=== PATIENT | male | born 1955 | race Caucasian/White ===

== ENCOUNTER 2019-03-09 21:28 | Observation (INO) ==
[2019-03-09] MEDS ORDERED: SODIUM CHLORIDE 0.9% 1000ML 1,000 ML IV ONE (22:23)
[2019-03-09 22:28] LABS: Basophils # (auto) 0.01 K/uL (0-0.2); Basophils % (auto) 0.2 %; Eosinophils # (auto) 0.13 K/uL (0-0.5); Eosinophils % (auto) 2.7 %; Hematocrit (blood only) 41.8 % (42-52); Hemoglobin 14.7 g/dL (14.0-18.0); Lymphocytes # (auto) 1.15 K/uL (1.2-3.4); Lymphocytes % (auto) 23.7 %; Mean Corpuscular Hgb Conc 35.2 g/dL (32-36); Mean Corpuscular Volume 88.2 fL (80-100); Mean Platelet Volume 10.4 fL (7.4-10.4); Monocytes # (auto) 0.83 K/uL (0.11-0.59); Monocytes % (auto) 17.1 %; Neutrophils # (auto) 2.74 K/uL (1.4-6.5); Neutrophils % (auto) 56.3 %; Platelet Count 147 K/uL (130-400); RDW Coefficient of Variation 13.1 % (11.5-14.5); RDW Standard Deviation 42.3 fL (36.4-46.3); Red Blood Count 4.74 M/uL (4.7-6.1); White Blood Count 4.86 K/uL (4.8-10.8)
--- NOTE | 2019-03-09 22:31 | XRay Report ---
XR chest 1V portable CLINICAL HISTORY: chest pain dyspnea COMPARISON STUDY: No previous studies for comparison. FINDINGS: Heart top limits normal terms of size. Left lung is clear. Potential minimal infiltrative/e ffusion process right base. Right hemidiaphragm is poorly seen. IMPRESSION: Parenchymal infiltrate possibly combined with a small effusion right base. The above report was generated using voice recognition software. It may contain grammatical, syntax or spelling errors. Electronically signed by: Andrey Calix M.D. 03/09/2019 10:29 PM
[2019-03-09 22:38] LABS: INR 1.1 (0.9-1.1); Partial Thromboplastin Time 27.9 Seconds (21.0-31.0); Prothrombin Time 10.8 Seconds (9.0-12.0)
[2019-03-09 22:49] LABS: BUN Creatinine Ratio 15.3 (10-20); Calcium 9.4 mg/dl (8.5-10.1); Creatinine Clr Calc Pharmacy 60.6 ml/min; Est GFR (African American) 62.6; Potassium 3.9 mmol/L (3.5-5.1)
[2019-03-09 22:53] LABS: Albumin Globulin Ratio 1.1 (0.9-2); Bilirubin,Total 0.6 mg/dl (0.2-1); Globulin 3.7 gm/dl (2.5-4.0); Total Protein 7.7 gm/dl (6.4-8.2)
--- NOTE | 2019-03-09 22:53 | CT Scan Report ---
CT head/brain wo con CT DOSE: 614.27 mGy.cm HISTORY: Mental status change acute headache, HTN TECHNIQUE: Multiaxial CT images of the head were performed without the use of intravenous contrast. A dose lowering technique was utilized adhering to the principles of ALARA. Comparison: None. Findings: The paranasal sinuses and mastoid air cells are clear. The calvarium and skull base are int act. The ventricles and sulci are within normal limits. There is no mass, hematoma, midline shift, or acute infarct. Impression: No acute intracranial abnormality. The above report was generated using voice recognition software. It may contain grammatical, syntax or spelling errors. Electronically signed by: Andrey Calix M.D. 03/09/2019 10:52 PM
[2019-03-09 23:13] LABS: Troponin I 0.051 ng/ml (0-0.045)
[2019-03-09] MEDS ORDERED: NITROGLYCERIN SL 0.4 MG/TAB TAB SL STA (23:23)
[2019-03-09] MEDS ORDERED: ASPIRIN 81 MG CHEW PO STA (23:23)
[2019-03-09] MEDS ORDERED: HEPARIN IV BOLUS 5,000 UNITS in SYRINGE 0 ML IV ONE (23:35)
[2019-03-09] MEDS ORDERED: HEPARIN 25000 UNIT/500 ML D5W IV ONE (23:39)
[2019-03-09] MEDS ORDERED: HEPARIN SOD 5,000 UNIT/0.5 ML VIAL ONE (23:39)
[2019-03-09] MEDS ORDERED: NITROGLYCERIN/D5W 100MCG/ML 20ML SYR ONE (23:59)
[2019-03-09] MEDS ORDERED: HEPARIN (PORCINE) 1000 UNIT/ML 10 ML (CATH LAB USE ONLY) ONE (23:59)
[2019-03-09] MEDS ORDERED: fentaNYL citrate 100 MCG/2 ML VIAL ONE (23:59)
[2019-03-09] MEDS ORDERED: NiCARDipine HCL INJ 2.5 MG/ML 10 ML AMP ONE (23:59)
[2019-03-09] MEDS ORDERED: MIDAZOLAM HCL 1 MG/ML 2ML VIAL ONE (23:59)
[2019-03-10] MEDS ORDERED: SODIUM CHLORIDE 0.9% 1000ML 1,000 ML IV SCH (00:45)
[2019-03-10] MEDS ORDERED: LORazepam 0.25 MG/0.5 ML VIAL IV PRN (01:01)
[2019-03-10] MEDS ORDERED: MoRPHine SULFATE 4 MG/ML 1 ML CARP\\VIAL IV PRN ×2 (01:01→09:50)
[2019-03-10] MEDS ORDERED: TRAMADOL HCL 50 MG TABLET PO PRN (01:01)
[2019-03-10] MEDS ORDERED: PROCHLORPERAZINE 5 MG in SYRINGE 4 ML IV PRN (01:01)
[2019-03-10] MEDS ORDERED: NITROGLYCERIN SL 0.4 MG/TAB TAB SL PRN (01:02)
[2019-03-10] MEDS ORDERED: ACETAMINOPHEN 325 MG TAB PO PRN (01:02)
[2019-03-10 01:41] LABS: Magnesium 2.4 mg/dl (1.8-2.4)
--- NOTE | 2019-03-10 01:56 | History & Physical Report ---
Date of Service March 10, 2019 Assessment & Plan (1) Chest pain: With troponin elevation likely secondary to hypertensive urgency secondary to worsening migraine headaches Overall, home BP control had improved after recent increase in home ARB dose as per patient's documentation. Normal coronaries on diagnostic cardiac catheterization as per inspector clip on sunglasses. 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 Decadron for intractable migraine headache MRI brain in a.m. RE worsening migraine symptoms over the last few months Replace potassium DVT prophylaxis. Lovenox subcu Full code (Patient requested to notify multimedia authoring specialist from [facility] on discharge about administration of aspirin and anticoagulants during confinement.) History of Present Illness Chief Complaint: Chest pain Primary Care Provider: Yovanny Vargas History obtained from patient. 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 Last month, patient noted suboptimal BP control at home, SBP 140-160s. PCP increased home Candesartan from 4 mg to 8 mg daily 2 weeks ago on clinic visit. Improved BP control at home noted subsequently. Yesterday, patient noted worsening of daily migraine attacks. SBP 180s-200s. Patient subsequently noted burning upper chest pain different from usual heartburn attack, with nausea. Denies junky cough symptoms. At the ER, patient had relief of chest pain following aspirin and nitroglycerin administration. Heart alert subsequently called. Normal coronaries on diagnostic cardiac catheterization as per inspector clip on sunglasses. Patient currently in telemetry, chest pain-free. Migraine headache unimproved. Medical History as above Surgical History : Orthopedic procedures Family History : Heart disease, brain tumor Personal/Social history : Non-smoker, occasional EtOH intake, retired [employer] service Allergies Allergy/AdvReac Type Severity Reaction Status Date / Time cephalexin [From Keflex] Allergy Unknown 30 YRS Verified 03/09/19 22:05 AGO-UNKNOWN nifedipine Allergy NUMBNESS Verified 03/09/19 22:05 IN FACE NSAIDS (Non-Steroidal AdvReac Unknown TO AVOID Verified 03/09/19 22:05 Anti-Inflamma DUE TO KIDNEY FUNCTION Home Medications Home Medications Medication Instructions Recorded Confirmed Type Ewing-3 2 tab PO BID 01/13/19 03/09/19 History Prilosec OTC 40 mg PO QAM 01/13/19 03/09/19 History Restasis 1 drp OPHTHALMIC (EYE) Q12H 01/13/19 03/09/19 History acetaminophen [Tylenol Extra 1,000 mg PO BID 01/13/19 03/09/19 History Strength] aluminum hydroxide gel 640 mg PO QID PRN 01/13/19 03/09/19 History aspirin [Aspir-81] 81 mg PO QAM 01/13/19 03/09/19 History atorvastatin [Lipitor] 40 mg PO HS 01/13/19 03/09/19 History candesartan 8 mg PO QAM 01/13/19 03/09/19 History colestipol 1 g PO QPM 01/13/19 03/09/19 History fexofenadine [Concha Allergy] 180 mg PO QAM 01/13/19 03/09/19 History gabapentin 900 mg PO BID 01/13/19 03/09/19 History glucosamine sulfate [Glucosamine] 4,500 mg PO QAM 01/13/19 03/09/19 History hydrochlorothiazide 12.5 mg PO QAM 01/13/19 03/09/19 History ranitidine HCl [Zantac] 300 mg PO HS 01/13/19 03/09/19 History rizatriptan 1 tab PO UD PRN 01/13/19 03/09/19 History mirtazapine 7.5 mg PO HS 02/14/19 03/09/19 History Past Med/Surg History Medical History Degenerative disc disease CERVICAL. PT HAS HAD MRI AND MULTIPLE INJECTIONS. PT STATES HE GETS NUMBNESS IN BILATERAL HANDS/FINGER GERD (gastroesophageal reflux disease) History of solitary pulmonary nodule PT IS MONITORED ON REGULAR BASIS. Hyperlipidemia Hypertension Migraine receives botox injections for this Sciatica Receives quarterly injections Sleep apnea CPAP HS Surgical History History of repair of rotator cuff 4 years ago History of cardiac radiofrequency ablation 10+ YEARS AGO FOR HX OF ARRYTHMIA. (UNK TYPE). [facility]-NO ISSUES SINCE History of eye surgery PRK SURGERY ON B/L EYES History of tonsillectomy S/P Botox injection HISTORY OF BOTOX INJECTIONS AT [facility] FOR TX OF MIGRAINES. NEXT INJECTION 01/24/19. Social History Preferred Language: Hebrew Communication Ability: Effective Bulb Filler Required: No Beliefs That Will Affect Care: None Current Living Situation: Spouse Current Living Situation Comment: [facility] Other Information That Helps Us Care for You: No Feels Safe at Home: Yes Safety Concerns: Feels Safe At This Time Smoking Status: Never smoker Hx Alcohol Use: No Hx Substance Use: No Review of Systems As per HPI, all 10 systems reviewed, all other ROS negative Physical Exam Vital Signs (Past 24 Hours): Last Vital Signs Temp 36.5 C 03/10/19 01:00 Pulse 68 03/10/19 01:43 Resp 17 03/10/19 01:43 BP 111/61 03/10/19 01:43 Pulse Ox 94 03/10/19 01:43 Physical Exam: GENERAL: Comfortable, pleasant, no respiratory distress SKIN: Normal color, warm HEENT: [place] palpebral conjunctivae, no ptosis, dry buccal mucosa NECK : Supple, no tenderness CHEST : CTA, no tenderness HEART : RRR, no obvious murmurs ABDOMEN: Some distention, nontender EXTREMITIES : No LE swelling, no LE tenderness; dressing/band right wrist NEUROLOGIC : Coherent, no facial asymmetry, no other gross focality Results & Data Laboratory Results Laboratory Results WBC 4.86 K/uL (4.8-10.8) 03/09/19 22:20 RBC 4.74 M/uL (4.7-6.1) 03/09/19 22:20 Hgb 14.7 g/dL (14.0-18.0) 03/09/19 22:20 Hct 41.8 % (42-52) L 03/09/19 22:20 MCV 88.2 fL (80-100) 03/09/19 22:20 MCH 31.0 pg (25-34) 03/09/19 22:20 MCHC 35.2 g/dL (32-36) 03/09/19 22:20 RDW Std Deviation 42.3 fL (36.4-46.3) 03/09/19 22:20 RDW Coeff of Hemanth 13.1 % (11.5-14.5) 03/09/19 22:20 Plt Count 147 K/uL (130-400) 03/09/19 22:20 MPV 10.4 fL (7.4-10.4) 03/09/19 22:20 Immature Gran % (Auto) 0.0 % 03/09/19 22:20 Neut % (Auto) 56.3 % 03/09/19 22:20 Lymph % (Auto) 23.7 % 03/09/19 22:20 Cottle % (Auto) 17.1 % 03/09/19 22:20 Eos % (Auto) 2.7 % 03/09/19 22:20 Baso % (Auto) 0.2 % 03/09/19:20 Immature Gran # (Auto) 0.00 K/uL (0.00-0.02) 03/09/19 22:20 Neut # (Auto) 2.74 K/uL (1.4-6.5) 03/09/19 22:20 Lymph # (Auto) 1.15 K/uL (1.2-3.4) L 03/09/19 22:20 Cottle # (Auto) 0.83 K/uL (0.11-0.59) H 03/09/19 22:20 Eos # (Auto) 0.13 K/uL (0-0.5) 03/09/19 22:20 Baso # (Auto) 0.01 K/uL (0-0.2) 03/09/19 22:20 PT 10.8 Seconds (9.0-12.0) 03/09/19 22:20 INR 1.1 (0.9-1.1) 03/09/19 22:20 APTT 27.9 Seconds (21.0-31.0) 03/09/19 22:20 PTT Ratio 1.0 03/09/19 22:20 Activ Coag Time Kaolin 175 SECONDS (94-140) H 03/09/19 23:34 Sodium 142 mmol/L (136-145) 03/09/19 22:20 Potassium 3.9 mmol/L (3.5-5.1) 03/09/19 22:20 Chloride 106 mmol/L (98-107) 03/09/19 22:20 Carbon Dioxide 28 mmol/L (21-32) 03/09/19 22:20 Anion Gap 8.0 (3-11) 03/09/19 22:20 BUN 21 mg/dl (7-18) H 03/09/19 22:20 Creatinine 1.38 mg/dl (0.6-1.4) 03/09/19 22:20 Est Cr Clr Drug Dosing 60.6 ml/min 03/09/19 22:20 Est GFR ( Amer) 62.6 03/09/19 22:20 Est GFR (Non-Af Amer) 54.0 03/09/19 22:20 BUN/Creatinine Ratio 15.3 (10-20) 03/09/19 22:20 Glucose 100 mg/dl (70-99) H 03/09/19 22:20 Calcium 9.4 mg/dl (8.5-10.1) 03/09/19 22:20 Magnesium 2.4 mg/dl (1.8-2.4) 03/09/19 22:20 Total Bilirubin 0.6 mg/dl (0.2-1) 03/09/19 22:20 AST 42 U/L (15-37) H 03/09/19 22:20 ALT 62 U/L (12-78) 03/09/19 22:20 Alkaline Phosphatase 81 U/L (45-117) 03/09/19 22:20 Troponin I 0.051 ng/ml (0-0.045) H* 03/09/19 22:20 Total Protein 7.7 gm/dl (6.4-8.2) 03/09/19 22:20 Albumin 4.0 gm/dl (3.4-5.0) 03/09/19 22:20 Globulin 3.7 gm/dl (2.5-4.0) 03/09/19 22:20 Albumin/Globulin Ratio 1.1 (0.9-2) 03/09/19 22:20 Lipase Cancelled 03/09/19 22:29 TSH Cancelled 03/09/19 22:29 Diagnostic Findings Chest x-ray showed right infiltrate CT head no acute pathology EKG as per my interpretation : Rate 60, NSR, ST depression lateral leads, diffuse T wave inversions over chest leads
[2019-03-10] MEDS ORDERED: DEXAMETHASONE SOD PHOSPHATE 10 MG in SYRINGE 0 ML IV ONE (03:00)
--- NOTE | 2019-03-10 03:37 | Emergency Department Note ---
History of Present Illness General Chief Complaint: Hypertension Stated Complaint: HBP,CHEST PAIN Source: patient Mode of arrival: ambulatory Limitations: no limitations History of Present Illness Provider Complaint: chest pain and other (Hypertension, headache) Onset (ago): hour(s) 2 Time: 20:45 Duration: now resolved Onset: during rest and awoke with symptoms Pain Location: substernal and left chest Pain Radiation: none Severity: severe Maximum Pain Intensity: 9 Current Pain Intensity: 0 Quality: + other (Burning) Relieved By: + nothing Exacerbated By: + nothing Context: no recent illness, no recent immobilization and no history of DVT/PE Associated symptoms: + dyspnea Treatments prior to arrival: none This 63-year-old male patient presents emergency department today, ambulatory, accompanied by his . The patient states for the past 10-14 days, he has been experiencing elevated blood pressure. The patient states about 10 days ago, his PCP increased his candesartan from 4 mg to 8 mg due to elevated blood pressure readings. The patient states he does have a history of migraines, and has been experiencing migraines for the past few weeks. This evening, he took his blood pressure prior to going to bed. He noted it was 174/100. He states he went to bed, then awoke with burning chest pain in the left and substernal region of his chest. At this time, his blood pressure was 202/110. He states raising his left arm upward seem to help with the pain, and his pain has completely resolved upon arrival to the emergency department. He denies any aggravating factors, and states the pain is nonexertional and unrelated to food. He denies any blurry vision or dizziness. He states he has had similar migraines in the past, but not usually this frequently. He does report occasional dyspnea associated with the chest pain, but states this is resolved as well. He does report light sensitivity. Normally for his migraines, he dims the lights and relaxes which helps. He does have a prescription for Maxalt, but has not taken this medication. Of note, the patient does have a history of an ablation 10 years ago at [facility]. He reports history of hypertension and hyperlipidemia as well as sleep apnea and pulmonary nodules. He denies any significant family history of MIs, specifically younger than 65 years old. Home Medications Home Medications Medication Instructions Recorded Confirmed Type [place]-3 2 tab PO BID 01/13/19 03/09/19 History Prilosec OTC 40 mg PO QAM 01/13/19 03/09/19 History Restasis 1 drp OPHTHALMIC (EYE) Q12H 01/13/19 03/09/19 History acetaminophen [Tylenol Extra 1,000 mg PO BID 01/13/19 03/09/19 History Strength] aluminum hydroxide gel 640 mg PO QID PRN 01/13/19 03/09/19 History aspirin [Aspir-81] 81 mg PO QAM 01/13/19 03/09/19 History atorvastatin [Lipitor] 40 mg PO HS 01/13/19 03/09/19 History candesartan 8 mg PO QAM 01/13/19 03/09/19 History colestipol 1 g PO QPM 01/13/19 03/09/19 History fexofenadine [Concha Allergy] 180 mg PO QAM 01/13/19 03/09/19 History gabapentin 900 mg PO BID 01/13/19 03/09/19 History glucosamine sulfate [Glucosamine] 4,500 mg PO QAM 01/13/19 03/09/19 History hydrochlorothiazide 12.5 mg PO QAM 01/13/19 03/09/19 History ranitidine HCl [Zantac] 300 mg PO HS 01/13/19 03/09/19 History rizatriptan 1 tab PO UD PRN 01/13/19 03/09/19 History mirtazapine 7.5 mg PO HS 02/14/19 03/09/19 History Allergies Allergy/AdvReac Type Severity Reaction Status Date / Time cephalexin [From Keflex] Allergy Unknown 30 YRS Verified 03/09/19 22:05 AGO-UNKNOWN nifedipine Allergy NUMBNESS Verified 03/09/19 22:05 IN FACE NSAIDS (Non-Steroidal AdvReac Unknown TO AVOID Verified 03/09/19 22:05 Anti-Inflamma DUE TO KIDNEY FUNCTION Past Med/Surg History Medical History Degenerative disc disease CERVICAL. PT HAS HAD MRI AND MULTIPLE INJECTIONS. PT STATES HE GETS NUMBNESS IN BILATERAL HANDS/FINGER GERD (gastroesophageal reflux disease) History of solitary pulmonary nodule PT IS MONITORED ON REGULAR BASIS. Hyperlipidemia Hypertension Migraine receives botox injections for this Sciatica Receives quarterly injections Sleep apnea CPAP HS Surgical History History of repair of rotator cuff 4 years ago History of cardiac radiofrequency ablation 10+ YEARS AGO FOR HX OF ARRYTHMIA. (UNK TYPE). [facility]-NO ISSUES SINCE History of eye surgery PRK SURGERY ON B/L EYES History of tonsillectomy S/P Botox injection HISTORY OF BOTOX INJECTIONS AT [facility] FOR TX OF MIGRAINES. NEXT INJECTION 01/24/19. Social History Preferred Language: Luxembourgish Communication Ability: Effective Boat Tender Required: No Beliefs That Will Affect Care: None Current Living Situation: Spouse Current Living Situation Comment: [facility] Other Information That Helps Us Care for You: No Feels Safe at Home: Yes Safety Concerns: Feels Safe At This Time Smoking Status: Never smoker Hx Alcohol Use: No Hx Substance Use: No Review of Systems A total of 10 systems reviewed and were otherwise negative Physical Exam Vital Signs Vital Signs - 24 hr 03/09/19 21:31 03/09/19 22:05 03/09/19 22:15 Temperature 36.8 C Temperature Source Oral Sepsis Recent Fever Within 48 Hours No Sepsis New/Unexplained Change in Mental Status No Sepsis Action Taken by Nursing No Action Required Pulse Rate 66 58 L Pulse Rate [Right Finger] Pulse Rate from SpO2 Sensor Pulse Rhythm Regular Pulse Rhythm [Right Finger] Pulse Strength Normal Pulse Strength [Right Finger] Respiratory Rate 18 20 Respiratory Effort / Characteristics Non-Labored Spontaneous Respiratory Depth Normal Respiratory Pattern Regular Blood Pressure 119/87 170/110 H Blood Pressure [Left Arm] Blood Pressure [Right Arm] Blood Pressure Mean 97 130 Blood Pressure Mean [Left Arm] Blood Pressure Mean [Right Arm] Blood Pressure Position Sitting Blood Pressure Position [Left Arm] Blood Pressure Position [Right Arm] Pulse Oximetry 96 95 Pulse Oximetry [Right Index Finger] Oxygen Delivery Method Room Air Room Air Room Air Oxygen Delivery Method [Right Index Finger] Oxygen Flow Rate 03/09/19 22:30 03/09/19 23:00 03/09/19 23:31 Temperature Temperature Source Sepsis Recent Fever Within 48 Hours Sepsis New/Unexplained Change in Mental Status Sepsis Action Taken by Nursing Pulse Rate 58 L 62 61 Pulse Rate [Right Finger] Pulse Rate from SpO2 Sensor 60 Pulse Rhythm Pulse Rhythm [Right Finger] Pulse Strength Pulse Strength [Right Finger] Respiratory Rate 20 21 24 Respiratory Effort / Characteristics Respiratory Depth Respiratory Pattern Blood Pressure 172/108 H 172/112 H 165/107 H Blood Pressure [Left Arm] Blood Pressure [Right Arm] Blood Pressure Mean 129 132 126 Blood Pressure Mean [Left Arm] Blood Pressure Mean [Right Arm] Blood Pressure Position Blood Pressure Position [Left Arm] Blood Pressure Position [Right Arm] Pulse Oximetry 95 96 97 Pulse Oximetry [Right Index Finger] Oxygen Delivery Method Room Air Room Air Room Air Oxygen Delivery Method [Right Index Finger] Oxygen Flow Rate 03/09/19 23:54 03/10/19 00:00 03/10/19 00:08 Temperature Temperature Source Sepsis Recent Fever Within 48 Hours Sepsis New/Unexplained Change in Mental Status Sepsis Action Taken by Nursing Pulse Rate 57 L 54 L Pulse Rate [Right Finger] 55 L 60 Pulse Rate from SpO2 Sensor 56 L 55 L Pulse Rhythm Pulse Rhythm [Right Finger] Pulse Strength Pulse Strength [Right Finger] Respiratory Rate 19 21 18 Respiratory Effort / Characteristics Respiratory Depth Normal Normal Respiratory Pattern Regular Regular Blood Pressure 145/94 H 157/95 H Blood Pressure [Left Arm] Blood Pressure [Right Arm] 145/94 H 144/95 H Blood Pressure Mean 111 115 Blood Pressure Mean [Left Arm] Blood Pressure Mean [Right Arm] 111 111 Blood Pressure Position Blood Pressure Position [Left Arm] Blood Pressure Position [Right Arm] Lying Pulse Oximetry 98 100 100 Pulse Oximetry [Right Index Finger] Oxygen Delivery Method Room Air Room Air Oxymask Oxygen Delivery Method [Right Index Finger] Oxygen Flow Rate 6 6 03/10/19 01:00 03/10/19 01:02 03/10/19 01:15 Temperature 36.5 C 36.5 C Temperature Source Oral Oral Sepsis Recent Fever Within 48 Hours Sepsis New/Unexplained Change in Mental Status Sepsis Action Taken by Nursing Pulse Rate Pulse Rate [Right Finger] 77 77 Pulse Rate from SpO2 Sensor Pulse Rhythm Pulse Rhythm [Right Finger] Regular Regular Pulse Strength Pulse Strength [Right Finger] Normal Normal Respiratory Rate 16 16 Respiratory Effort / Characteristics Non-Labored Non-Labored Spontaneous Respiratory Depth Normal Normal Respiratory Pattern Regular Regular Blood Pressure Blood Pressure [Left Arm] 122/74 122/74 Blood Pressure [Right Arm] Blood Pressure Mean Blood Pressure Mean [Left Arm] 90 90 Blood Pressure Mean [Right Arm] Blood Pressure Position Blood Pressure Position [Left Arm] Sitting Sitting Blood Pressure Position [Right Arm] Pulse Oximetry 95 95 Pulse Oximetry [Right Index Finger] 95 Oxygen Delivery Method Room Air Room Air Oxygen Delivery Method [Right Index Finger] Room Air Oxygen Flow Rate 03/10/19 01:28 03/10/19 01:43 03/10/19 02:31 Temperature Temperature Source Sepsis Recent Fever Within 48 Hours Sepsis New/Unexplained Change in Mental Status Sepsis Action Taken by Nursing Pulse Rate 63 Pulse Rate [Right Finger] 68 55 L Pulse Rate from SpO2 Sensor Pulse Rhythm Pulse Rhythm [Right Finger] Regular Pulse Strength Pulse Strength [Right Finger] Normal Respiratory Rate 17 13 Respiratory Effort / Characteristics Non-Labored Spontaneous Non-Labored Spontaneous Respiratory Depth Normal Normal Respiratory Pattern Regular Regular Blood Pressure Blood Pressure [Left Arm] 111/61 139/82 Blood Pressure [Right Arm] Blood Pressure Mean Blood Pressure Mean [Left Arm] 77 101 Blood Pressure Mean [Right Arm] Blood Pressure Position Blood Pressure Position [Left Arm] Sitting Lying Blood Pressure Position [Right Arm] Pulse Oximetry 94 96 Pulse Oximetry [Right Index Finger] Oxygen Delivery Method Room Air Room Air Oxygen Delivery Method [Right Index Finger] Oxygen Flow Rate 03/10/19 04:23 03/10/19 06:14 03/10/19 07:19 Temperature 37.0 C 36.7 C Temperature Source Oral Oral Sepsis Recent Fever Within 48 Hours Sepsis New/Unexplained Change in Mental Status Sepsis Action Taken by Nursing Pulse Rate Pulse Rate [Right Finger] 61 63 62 Pulse Rate from SpO2 Sensor Pulse Rhythm Pulse Rhythm [Right Finger] Pulse Strength Pulse Strength [Right Finger] Respiratory Rate 17 16 17 Respiratory Effort / Characteristics Non-Labored Spontaneous Respiratory Depth Normal Normal Respiratory Pattern Blood Pressure Blood Pressure [Left Arm] 133/86 130/82 Blood Pressure [Right Arm] 126/75 Blood Pressure Mean Blood Pressure Mean [Left Arm] 101 98 Blood Pressure Mean [Right Arm] 92 Blood Pressure Position Blood Pressure Position [Left Arm] Lying Sitting Blood Pressure Position [Right Arm] Lying Pulse Oximetry 96 94 Pulse Oximetry [Right Index Finger] Oxygen Delivery Method Room Air Room Air Oxygen Delivery Method [Right Index Finger] Oxygen Flow Rate VITALS: Vitals are noted on the nurse's note and reviewed by myself. Vital signs stable. GENERAL: This is a 63-year-old white male, in no acute distress, nondiaphoretic, well-developed well-nourished. SKIN: The skin was without rashes, erythema, edema, or bruising. There is no tenting of the skin. Capillary reflex less than 2 seconds. HEAD: Normocephalic atraumatic. EARS: External auditory canals clear, tympanic membranes pearly fabian without erythema or effusion bilaterally. EYES: Pupils equal round and reactive to light and accommodation. Conjunctivae without injection, sclerae without icterus. Extraocular movements intact. NOSE: Patent, turbinates without inflammation or discharge. No sinus tender ness. MOUTH: Mucous membranes moist. Tonsils are not enlarged. Pharynx without erythema or exudate. Uvula midline. Airway patent. Tongue does not deviate. NECK: Supple without nuchal rigidity. No lymphadenopathy. No thyromegaly. Cervical spine is nontender. No JVD. HEART: Regular rate and rhythm without murmurs gallops or rubs. LUNGS: Clear to auscultation bilaterally without wheezes, rales or rhonchi. No dullness to percussion. No retractions or accessory muscle use. ABDOMEN: Positive bowel sounds x 4. Normal tympanic percussion. Soft, nontender, without masses or organomegaly. Ware sign negative. No guarding or rebound tenderness. MUSCULOSKELETAL: No muscle atrophy, erythema, or edema noted. Full range of motion without joint tenderness in all extremities. No tenderness to palpation. Normal gait. Strength 5/5 throughout. NEURO: Patient was alert and oriented to person place and time. Normal sensation to light and sharp touch. Deep tendon reflexes 2+ throughout. No focal neurological deficits. Cranial nerves II through XII grossly intact. No facial droop or weakness. Course The patient was seen and evaluated as above. IV access obtained, labs drawn. Patient medicated with IV fluids. Imaging performed and reviewed by myself and radiologist as above. EKG reviewed by myself. Labs reviewed by myself. Received a phone call from charge master analyst that the patient does have a positive troponin. I discussed the findings with the patient at bedside. He was reassessed and notes worsening chest pain at this time. Repeat EKG performed and does show acute changes with some ST elevation. At this time, I discussed the case with my attending and heart alert called. Patient was given aspirin, nitroglycerin, and 5000 unit heparin bolus. Discussed the case with Dr. Strickland, cardiology. He did see and evaluate the p atient and plans to take the patient to the [facility]. Please see the cardiology and hospitalist dictation regarding ongoing management and care of this patient. Administered Medications Aspirin (Ecotrin Ectab) 81 mg PO DAILY [facility] Stop: 04/09/19 08:59 Last Admin: 03/10/19 09:37 Dose: 81 mg Documented by: [id number] Enoxaparin Sodium (Lovenox) 40 mg SQ QAM [facility] Stop: 04/09/19 08:59 Last Admin: 03/10/19 09:40 Dose: 40 mg Documented by: [id number] Fexofenadine HCl (Concha) 180 mg PO QAM [facility] Stop: 04/09/19 08:59 Last Admin: 03/10/19 09:37 Dose: 180 mg Documented by: [id number] Gabapentin (Neurontin) 900 mg PO BID [facility] Stop: 04/09/19 08:59 Last Admin: 03/10/19 09:40 Dose: 900 mg Documented by: [id number] Gadobutrol (Gadavist 65ml) 9 ml IV ONCE PRN PRN Reason: Interaction Checking Stop: 03/14/19 04:53 Last Admin: 03/10/19 04:54 Dose: 9 ml Documented by: [id number] HCTZ/Losartan Potassium (Hyzaar 50/12.5mg) 1 tab [facility] [place] Stop: 04/09/19 08:59 Last Admin: 03/10/19 09:37 Dose: 1 tab Documented by: [id number] Pantoprazole Sodium (Protonix) 40 mg PO DAILY [facility] Stop: 04/09/19 08:59 Last Admin: 03/10/19 09:40 Dose: 40 mg Documented by: [id number] Discontinued Medications Aspirin (Aspirin Chew) 324 mg PO NOW [facility] Stop: 03/09/19 23:24 Last Admin: 03/09/19 23:33 Dose: 324 mg Documented by: [id number] Fentanyl Citrate (Fentanyl Citrate) Confirm Administered Dose 100 mcg .ROUTE .STK-MED ONE Stop: 03/10/19 00:00 Last Admin: 03/10/19 02:28 Dose: Not Given Documented by: [id number] Heparin Sodium (Porcine) (Heparin Sodium (Porcine)) Confirm Administered Dose 5,000 units .ROUTE .STK-MED ONE Stop: 03/09/19 23:40 Last Admin: 03/09/19 23:46 Dose: Not Given Documented by: [id number] Heparin Sodium (Porcine) (Heparin Iv Bolus ([facility] Use Only)) Confirm Administered Dose 10,000 units .ROUTE .STK-MED ONE Stop: 03/10/19 00:00 Last Admin: 03/10/19 02:28 Dose: Not Given Documented by: [id number] Heparin Sodium/Dextrose (Heparin Sodium/Dextrose) Confirm Administered Dose 25,000 units IV .STK-MED ONE Stop: 03/09/19 23:40 Last Admin: 03/09/19 23:46 Dose: Not Given Documented by: [id number] Heparin Sodium/Sodium Chloride (Heparin/Nss 1000 Unit/500ml Flush Bag) Confirm Administered Dose 3,000 units IV .STK-MED ONE Stop: 03/10/19 00:00 Last Admin: 03/10/19 02:28 Dose: Not Given Documented by: [id number] Sodium Chloride (Nss 1000ml) 1,000 mls @ 999 mls/hr IV .Q1H1M ONE Stop: 03/09/19 23:23 Last Infusion: 03/09/19 23:48 Dose: 0 mls/hr Documented by: [id number] Admin: 03/09/19 22:33 Dose: 999 mls/hr Documented by: [id number] Heparin Sodium (Porcine) 5,000 (units/ Syringe) 5 mls @ 1 mls/min IV ONE ONE Stop: 03/09/19 23:36 Last Admin: 03/09/19 23:43 Dose: 1 mls/min Documented by: [id number] Cosigned by: [id number] Sodium Chloride (Nss 1000ml) 1,000 mls @ 100 mls/hr IV .Q10H YAKOV Stop: 03/10/19 08:44 Last Infusion: 03/10/19 06:06 Dose: 100 mls/hr Documented by: [id number] Infusion: 03/10/19 04:24 Dose: 0 mls/hr Documented by: [id number] Admin: 03/10/19 01:00 Dose: 100 mls/hr Documented by: [id number] Dexamethasone Sodium Phosphate (10 mg/ Syringe) 2.5 mls @ 1 mls/min IV ONE ONE Stop: 03/10/19 03:02 Last Admin: 03/10/19 02:55 Dose: 1 mls/min Documented by: [id number] Midazolam HCl (Versed) Confirm Administered Dose 2 mg .ROUTE .STK-MED ONE Stop: 03/10/19 00:00 Last Admin: 03/10/19 02:28 Dose: Not Given Documented by: [id number] Miscellaneous (Order Awaiting Action) 1 ea N/A QS YAKOV Stop: 04/09/19 01:59 Last Admin: 03/10/19 02:21 Dose: Not Given Documented by: [id number] Nicardipine HCl (Cardene) Confirm Administered Dose 25 mg .ROUTE .STK-MED ONE Stop: 03/10/19 00:00 Last Admin: 03/10/19 02:28 Dose: Not Given Documented by: [id number] Nitroglycerin (Nitrostat) 0.4 mg SL NOW STA Stop: 03/09/19 23:24 Last Admin: 03/09/19 23:33 Dose: 0.4 mg Documented by: [id number] Nitroglycerin/Dextrose (Nitroglycerin/D5w 100 Mcg/Ml 20ml Syringe) Confirm Administered Dose 2,000 mcg .ROUTE .STK-MED ONE Stop: 03/10/19 00:00 Last Admin: 03/10/19 02:28 Dose: Not Given Documented by: [id number] Medical Decision Making Differential Diagnosis + fracture of rib, + pneumothorax, + stable angina, + unstable angina pectoris, + atypical chest pain, + st elevation myocardial infarction, + costochondritis, + chest pain, + biliary colic, + cardiac ischemia, + myocarditis, + pericarditis, + costochondritis, + pleurisy, + aortic dissection, + pulmonary embolism, + pneumonia, + musculoskeletal, + infections, + cholecystitis, + p ancreatitis and + esophageal rupture Home Medications Current Medication List: was personally reviewed by me Laboratory Data Attestation: I reviewed the patient's lab results. No leukocytosis, anemia, thrombocytopenia. Renal, hepatic function, and electrolytes without significant abnormality. Coags normal. Troponin elevated 0.051. TSH 1.080. Lipase 178. Result diagrams: 03/10/19 06:00 03/10/19 06:00 Lab Results 03/09/19 03/09/19 03/09/19 Range/Units 22:20 22:20 22:20 WBC 4.86 (4.8-10.8) K/uL RBC 4.74 (4.7-6.1) M/uL Hgb 14.7 (14.0-18.0) g/dL Hct 41.8 L (42-52) % MCV 88.2 (80-100) fL MCH 31.0 (25-34) pg MCHC 35.2 (32-36) g/dL RDW Std Deviation 42.3 (36.4-46.3) fL RDW Coeff of Hemanth 13.1 (11.5-14.5) % Plt Count 147 (130-400) K/uL MPV 10.4 (7.4-10.4) fL Immature Gran % (Auto) 0.0 % Neut % (Auto) 56.3 % Lymph % (Auto) 23.7 % Holt % (Auto) 17.1 % Eos % (Auto) 2.7 % Baso % (Auto) 0.2 % Immature Gran # (Auto) 0.00 (0.00-0.02) K/uL Neut # (Auto) 2.74 (1.4-6.5) K/uL Lymph # (Auto) 1.15 L (1.2-3.4) K/uL Holt # (Auto) 0.83 H (0.11-0.59) K/uL Eos # (Auto) 0.13 (0-0.5) K/uL Baso # (Auto) 0.01 (0-0.2) K/uL PT 10.8 (9.0-12.0) Seconds INR 1.1 (0.9-1.1) APTT 27.9 (21.0-31.0) Seconds PTT Ratio 1.0 Activ Coag Time Kaolin (94-140) SECONDS Sodium 142 (136-145) mmol/L Potassium 3.9 (3.5-5.1) mmol/L Chloride 106 (98-107) mmol/L Carbon Dioxide 28 (21-32) mmol/L Anion Gap 8.0 (3-11) BUN 21 H (7-18) mg/dl Creatinine 1.38 (0.6-1.4) mg/dl Est Cr Clr Drug Dosing 60.6 ml/min Est GFR ( Amer) 62.6 Est GFR (Non-Af Amer) 54.0 BUN/Creatinine Ratio 15.3 (10-20) Glucose 100 H (70-99) mg/dl Calcium 9.4 (8.5-10.1) mg/dl Magnesium 2.4 (1.8-2.4) mg/dl Total Bilirubin 0.6 (0.2-1) mg/dl AST 42 H (15-37) U/L ALT 62 (12-78) U/L Alkaline Phosphatase 81 (45-117) U/L Troponin I 0.051 H* (0-0.045) ng/ml Total Protein 7.7 (6.4-8.2) gm/dl Albumin 4.0 (3.4-5.0) gm/dl Globulin 3.7 (2.5-4.0) gm/dl Albumin/Globulin Ratio 1.1 (0.9-2) Triglycerides (0-150) mg/dl Cholesterol (0-200) mg/dl LDL Cholesterol, Calc mg/dl VLDL Cholesterol, Calc mg/dl HDL Cholesterol mg/dl Cholesterol/HDL Ratio Lipase 178 (73-393) U/L TSH 1.080 (0.300-4.500) uIu/ml Hepatitis C Ab Screen (Neg) 03/09/19 03/09/19 03/10/19 Range/Units 22:29 23:34 06:00 WBC (4.8-10.8) K/uL RBC (4.7-6.1) M/uL Hgb (14.0-18.0) g/dL Hct (42-52) % MCV (80-100) fL MCH (25-34) pg MCHC (32-36) g/dL RDW Std Deviation (36.4-46.3) fL RDW Coeff of Hemanth (11.5-14.5) % Plt Count (130-400) K/uL MPV (7.4-10.4) fL Immature Gran % (Auto) % Neut % (Auto) % Lymph % (Auto) % Holt % (Auto) % Eos % (Auto) % Baso % (Auto) % Immature Gran # (Auto) (0.00-0.02) K/uL Neut # (Auto) (1.4-6.5) K/uL Lymph # (Auto) (1.2-3.4) K/uL Holt # (Auto) (0.11-0.59) K/uL Eos # (Auto) (0-0.5) K/uL Baso # (Auto) (0-0.2) K/uL PT (9.0-12.0) Seconds INR (0.9-1.1) APTT (21.0-31.0) Seconds PTT Ratio Activ Coag Time Kaolin 175 H (94-140) SECONDS Sodium 137 (136-145) mmol/L Potassium 4.1 (3.5-5.1) mmol/L Chloride 108 H (98-107) mmol/L Carbon Dioxide 26 (21-32) mmol/L Anion Gap 3.0 (3-11) BUN 18 (7-18) mg/dl Creatinine 1.17 (0.6-1.4) mg/dl Est Cr Clr Drug Dosing 71.1 ml/min Est GFR ( Amer) 76.4 Est GFR (Non-Af Amer) 66.0 BUN/Creatinine Ratio 15.6 (10-20) Glucose 123 H (70-99) mg/dl Calcium 8.2 L (8.5-10.1) mg/dl Magnesium (1.8-2.4) mg/dl Total Bilirubin (0.2-1) mg/dl AST (15-37) U/L ALT (12-78) U/L Alkaline Phosphatase (45-117) U/L Troponin I 0.050 H* (0-0.045) ng/ml Total Protein (6.4-8.2) gm/dl Albumin (3.4-5.0) gm/dl Globulin (2.5-4.0) gm/dl Albumin/Globulin Ratio (0.9-2) Triglycerides 119 (0-150) mg/dl Cholesterol 119 (0-200) mg/dl LDL Cholesterol, Calc 52 mg/dl VLDL Cholesterol, Calc 24 mg/dl HDL Cholesterol 43 mg/dl Cholesterol/HDL Ratio 3 Lipase Cancelled (73-393) U/L TSH Cancelled (0.300-4.500) uIu/ml Hepatitis C Ab Screen (Neg) 03/10/19 03/10/19 Range/Units 06:00 06:00 WBC 5.19 (4.8-10.8) K/uL RBC 4.52 L (4.7-6.1) M/uL Hgb 13.8 L (14.0-18.0) g/dL Hct 39.9 L (42-52) % MCV 88.3 (80-100) fL MCH 30.5 (25-34) pg MCHC 34.6 (32-36) g/dL RDW Std Deviation 42.1 (36.4-46.3) fL RDW Coeff of Hematnh 13.1 (11.5-14.5) % Plt Count 148 (130-400) K/uL MPV 10.7 H (7.4-10.4) fL Immature Gran % (Auto) 0.2 % Neut % (Auto) 81.1 % Lymph % (Auto) 13.7 % Holt % (Auto) 4.2 % Eos % (Auto) 0.6 % Baso % (Auto) 0.2 % Immature Gran # (Auto) 0.01 (0.00-0.02) K/uL Neut # (Auto) 4.21 (1.4-6.5) K/uL Lymph # (Auto) 0.71 L (1.2-3.4) K/uL Holt # (Auto) 0.22 (0.11-0.59) K/uL Eos # (Auto) 0.03 (0-0.5) K/uL Baso # (Auto) 0.01 (0-0.2) K/uL PT (9.0-12.0) Seconds INR (0.9-1.1) APTT (21.0-31.0) Seconds PTT Ratio Activ Coag Time Kaolin (94-140) SECONDS Sodium (136-145) mmol/L Potassium (3.5-5.1) mmol/L Chloride (98-107) mmol/L Carbon Dioxide (21-32) mmol/L Anion Gap (3-11) BUN (7-18) mg/dl Creatinine (0.6-1.4) mg/dl Est Cr Clr Drug Dosing ml/min Est GFR ( Amer) Est GFR (Non-Af Amer) BUN/Creatinine Ratio (10-20) Glucose (70-99) mg/dl Calcium (8.5-10.1) mg/dl Magnesium (1.8-2.4) mg/dl Total Bilirubin (0.2-1) mg/dl AST (15-37) U/L ALT (12-78) U/L Alkaline Phosphatase (45-117) U/L Troponin I (0-0.045) ng/ml Total Protein (6.4-8.2) gm/dl Albumin (3.4-5.0) gm/dl Globulin (2.5-4.0) gm/dl Albumin/Globulin Ratio (0.9-2) Triglycerides (0-150) mg/dl Cholesterol (0-200) mg/dl LDL Cholesterol, Calc mg/dl VLDL Cholesterol, Calc mg/dl HDL Cholesterol mg/dl Cholesterol/HDL Ratio Lipase (73-393) U/L TSH (0.300-4.500) uIu/ml Hepatitis C Ab Screen Neg (Neg) Imaging Data Chest x-ray: Radiologist's impression: XR chest 1V portable CLINICAL HISTORY: chest pain dyspnea COMPARISON STUDY: No previous studies for comparison. FINDINGS: Heart top limits normal terms of size. Left lung is clear. Potential minimal infiltrative/effusion process right base. Right hemidiaphragm is poorly seen. IMPRESSION: Parenchymal infiltrate possibly combined with a small effusion right base. The above report was generated using voice recognition software. It may contain grammatical, syntax or spelling errors. Electronically signed by: Andrey Calix M.D. 03/09/2019 10:[address] head/brain wo con CT DOSE: 614.27 mGy.cm HISTORY: Mental status change acute headache, HTN TECHNIQUE: Multiaxial CT images of the head were performed without the use of intravenous contrast. A dose lowering technique was utilized adhering to the principles of ALARA. Comparison: None. Findings: The paranasal sinuses and mastoid air cells are clear. The calvarium and skull base are intact. The ventricles and sulci are within normal limits. There is no mass, hematoma, midline shift, or acute infarct. Impression: No acute intracranial abnormality. The above report was generated using voice recognition software. It may contain grammatical, syntax or spelling errors. Electronically signed by: Andrey Calix M.D. 03/09/2019 10:52 PM ECG Data Attestation: I personally reviewed and interpreted this ECG as follows: (Initial: 2137) Indication: chest pain Rate (beats per minute): 61 Rhythm: normal sinus Findings: + ST depression (Lateral) and + T-wave inversion; no ectopy Comparison ECG Date: no prior available Additional Comments: Repeat EKG during active CP, performed at 23:28, interpreted by myself: NSR ventricular rate of 60. ST elevation in inferior leads with ST depression in anterior/lateral leads with T-wave inversion. Repeat EKG 2356, interpreted by myself: Sinus bradycardia, Inverted T waves, ST depression in anterior/lateral leads, ST elevation lead III. Blood Pressure Blood Pressure Findings: Elevated blood pressure Blood Pressure Disposition: further management by hospitalist Head Trauma GCS Score: 15 MDM Narrative This 63-year-old male patient presented to the emergency department today complaining of hypertension, headache, and chest pain the patient experienced nonexertional chest pain which she described as burning which had completely subsided prior to arrival in the emergency department. The patient did also have a headache, and due to the headache and hypertension, I recommended CT scan. No evidence of infection. The patient was not initially hypertensive. Workup initiated and noted an elevated troponin. I reassessed the patient, and he states 10 minutes prior to reassessment, he developed worsening chest pain again. This was associated with shortness of breath. Repeat EKG performed and does show some ST elevation. The patient was medicated with aspirin and nitro. He was then given 5000 unit bolus of heparin. A heart alert was called, and the patient was subsequently evaluated by cardiology and taken to the [facility]. Please see hospitalist and cardiology dictation regarding ongoing management c are of this patient. The chart was completed utilizing [employer] Speech voice recognition software. Grammatical errors, random word insertions, pronoun errors, and incomplete sentences are an occasional consequence of this system due to software limitations, ambient noise, and hardware issues. Any formal questions or concerns about the content, text, or information contained within the body of th is dictation should be directly addressed to the provider for clarification. Attending Attestation: I Steven Campbell MD independently saw and evaluated this patient and agree with history and physical is otherwise documented by the physician library serials assistant. Concerning CP with mild trop elevation and EKG with dynamic changes developing inferior st elevation. See their note for full details. Impression & Plan Chest pain Critical Care Time I have personally spent greater than 90 minutes of critical care time in the direct management of this patient. This includes bedside care, interpretation of diagnostic studies, and testing, discussion with consultants, patient, and family members, and other required patient management activities. This 90 minutes is in excess of all separately billable procedures. Critical Care Time: Yes Total Critical Care Time: 90 Discharge Plan Visit Data *Final* Discharge Date/Time: 03/10/19 00:10 Chief Complaint: Hypertension Stated Complaint: HBP,CHEST PAIN ED Provider: Steven Campbell ED Midlevel Provider: Anisha Salinas Discharge Problem: Chest pain Patient Disposition: Admitted As Inpatient Discharge Instructions Interventions: ED Discharge Assessment Last Done: 03/10/19 00:10 Discharge Problem: Chest pain Qualifiers: Chest pain type: unspecified Qualified Code(s): R07.9 - Chest pain, unspecified
[2019-03-10] MEDS ORDERED: GADOBUTROL 65ML VIAL IV PRN (04:54)
[2019-03-10 06:14] LABS: Basophils # (auto) 0.01 K/uL (0-0.2); Basophils % (auto) 0.2 %; Eosinophils # (auto) 0.03 K/uL (0-0.5); Eosinophils % (auto) 0.6 %; Hematocrit (blood only) 39.9 % (42-52); Hemoglobin 13.8 g/dL (14.0-18.0); Immature Granulocytes # (auto) 0.01 K/uL (0.00-0.02); Immature Granulocytes % (auto) 0.2 %; Lymphocytes # (auto) 0.71 K/uL (1.2-3.4); Lymphocytes % (auto) 13.7 %; Mean Corpuscular Hgb Conc 34.6 g/dL (32-36); Mean Corpuscular Volume 88.3 fL (80-100); Mean Platelet Volume 10.7 fL (7.4-10.4); Monocytes # (auto) 0.22 K/uL (0.11-0.59); Monocytes % (auto) 4.2 %; Neutrophils # (auto) 4.21 K/uL (1.4-6.5); Neutrophils % (auto) 81.1 %; Platelet Count 148 K/uL (130-400); RDW Coefficient of Variation 13.1 % (11.5-14.5); RDW Standard Deviation 42.1 fL (36.4-46.3); Red Blood Count 4.52 M/uL (4.7-6.1); White Blood Count 5.19 K/uL (4.8-10.8)
[2019-03-10 06:36] LABS: BUN Creatinine Ratio 15.6 (10-20); Calcium 8.2 mg/dl (8.5-10.1); Creatinine Clr Calc Pharmacy 71.1 ml/min; Est GFR (African American) 76.4; Potassium 4.1 mmol/L (3.5-5.1)
[2019-03-10 06:41] LABS: Troponin I 0.05 ng/ml (0-0.045)
--- NOTE | 2019-03-10 07:40 | Magnetic Resonance Report ---
MRI OF THE BRAIN COMBO CLINICAL HISTORY: Migraine headache. COMPARISON STUDY: CT of the brain dated 03/09/2019. TECHNIQUE: MRI of the brain was performed utilizing various T1 and T2-weighted sequences in the axial , sagittal, and coronal planes. Contrast-enhanced sequences were acquired following the administratio n of 9 cc of Gadavist. FINDINGS: Brain parenchyma: The brain parenchyma is normal in appearance. There is no hemorrhage or mass effect . There is no restricted diffusion to suggest acute ischemia. No enhancing mass lesion is identified on the postcontrast images. Gurrola-white matter differentiation is preserved. No extra-axial fluid chapincito ection is seen. The cerebellar tonsils are normal in configuration. 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 Ventricles, sulci, and cisterns: Normal in configuration. Pituitary and sella: Unremarkable. Intracranial vasculature: Normal flow voids are maintained at the skull base. Orbits: The bony orbits are grossly intact. Orbital contents are normal in appearance. Sinuses and mastoids: There is trace left mastoid effusion. The paranasal sinuses are clear. Calvarium: Unremarkable. Cervical cord: Partially visualized cervical spinal cord is normal in morphology and signal intensity . IMPRESSION: No acute intracranial abnormality. Electronically signed by: Wei Narayan M.D. 03/10/2019 7:39 AM
--- NOTE | 2019-03-10 07:59 | Operative Report ---
DATE OF OPERATION: 03/10/2019 PORT-A-CATH INDICATIONS: Chest pain, atypical of angina in a 63-year-old male with a history of hypertension and EKG suspicious of LVH with strain and a positive troponin. PROCEDURE PERFORMED: Include left heart catheterization, coronary cineangiography, radiological interpretation, and supervision. METHOD: Upon arrival to the slab conditioner supervisor, the patient was prepped and draped in the usual sterile fashion. After local infiltration of 2% lidocaine, a 6-Tristanian sheath was placed in the right radial artery. Intra-arterial nitroglycerin was administered. The sheath was aspirated and flushed. A 6-Tristanian JL3.5 guiding catheter was advanced over wire under fluoroscopic guidance into the central circulation where it was aspirated and flushed. After confirmation of adequate waveforms it was advanced into the left main. Cineangiograms of the left coronary artery were obtained and reviewed. The catheter removed from the body over wire and sheath was aspirated and flushed. A 6-Tristanian diagnostic JR4 right coronary catheter was advanced over wire under fluoroscopic guidance to the central circulation where it was used to cross the aortic valve in retrograde fashion. Left ventricular end-diastolic pressure was measured. Catheter removed from the left ventricle to the aorta under continuous pressure monitoring. It was used to engage the origin of the right coronary artery. Cineangiograms of the right coronary artery were obtained and reviewed. The catheter was removed from body over wire. The sheath was aspirated and flushed. An external compression device was deployed over the right radial artery. The patient was returned to his room in good condition. COMPLICATIONS: None. FINDINGS: Left main is normal. Left anterior descending artery, first and second diagonal branches were free of significant disease. Left circumflex, circumflex marginal and posterolateral branches are free of significant disease. The right coronary artery, the posterior descending artery, the posterior AV extension of the right coronary posterolateral branch arising from it were all free of significant disease. Left ventricular end-diastolic pressure is mildly elevated. No significant aortic valve gradient is demonstrated. IMPRESSION: Noncritical coronary artery disease. I attest to the content of the Intraoperative Record and any orders documented therein. Any exception s are noted below.
[2019-03-10] MEDS ORDERED: ENOXAPARIN INJ 40 MG/0.4 ML SYR SQ SCH (09:00)
[2019-03-10] MEDS ORDERED: ATORVASTATIN 40 MG TAB PO SCH ×2 (09:00→21:00)
[2019-03-10] MEDS ORDERED: ASPIRIN 325 MG ECTAB PO SCH (09:00)
[2019-03-10] MEDS ORDERED: ASPIRIN 81 MG ECTAB PO SCH ×2 (09:00)
[2019-03-10] MEDS: LOSARTAN/HCTZ 50/12.5MG TAB PO SCH (09:37)
[2019-03-10] MEDS: ASPIRIN 81 MG ECTAB PO SCH (09:37)
[2019-03-10] MEDS: FEXOFENADINE HCL 180 MG TAB PO SCH (09:37)
[2019-03-10] MEDS: PANTOprazole 40 MG TAB PO SCH (09:40)
[2019-03-10] MEDS: ENOXAPARIN INJ 40 MG/0.4 ML SYR SQ SCH (09:40)
[2019-03-10] MEDS: GABAPENTIN 300 MG CAP PO SCH ×2 (09:40→20:37)
[2019-03-10] MEDS ORDERED: CANDESARTAN CILEXETIL 4 MG PO SCH (09:45)
[2019-03-10] MEDS: ACETAMINOPHEN 1,000 MG/100 ML VIAL IV PRN ×2 (10:36→20:35)
--- NOTE | 2019-03-10 10:42 | Consultation Report ---
DATE OF CONSULTATION: 03/10/2019 INPATIENT CARDIOLOGY CONSULTATION CONSULTATION REQUESTED BY: Dr. Beasley. REASON FOR CONSULTATION: Hypertensive urgency with chest pain. HISTORY OF PRESENT ILLNESS: Mr. Romano is a very pleasant 63-year-old gentleman who presented to [facility] late in the evening of 03/09/2019 with complaints of migraine and chest discomfort and elevated blood pressure. The patient states he was in his normal state of health until yesterday afternoon when he developed a migraine. This is not unusual for him and he has been dealing with this for quite some time, but he did check his blood pressure and it was elevated. He then went to bed, got comfortable, put on a CPAP, but then suddenly developed chest discomfort. He described it as a substernal burning sensation that radiated across his left chest and into his left shoulder. At that time, he became concerned, he checked his blood pressure at home and it was 202/110, he came into the Emergency Department. Upon arrival, he was significantly hypertensive and his EKGs showed diffuse T-wave inversions and a heart alert was called due to his ongoing pain. Cardiac catheterization showed normal coronary arteries and the patient was admitted to telemetry. He states he still has migraine since admission, but the chest pain resolved after the catheterization. He states he has never had chest discomfort like this before. He states that he is normally very active and has not had any chest discomfort or dyspnea with exertion as of late. He has noted that his blood pressure has been elevating at home. [facility], who increased his candesartan from 4 to 8 mg daily, but the patient states he has really not noticed a difference in his blood pressure. In terms of his migraines, this has been an ongoing issue. He has seen many different physicians through the [place] system including at [facility] for it. He is currently receiving Botox injections with some transient relief. He thinks his last injection was about 2 months ago. PAST SURGICAL HISTORY: 1. Shoulder surgery. 2. Toe surgery. 3. Electrophysiology study with an ablation of reentrant pathway, details unavailable. 4. Mohs surgery. MEDICAL ILLNESSES: 1. History of reentry tachycardia, unclear etiology. 2. Hypertension. 3. Migraines. 4. Hyperlipidemia. 5. GERD. 6. Arthritis. FAMILY HISTORY: Noncontributory. SOCIAL HISTORY: The patient denies any alcohol, tobacco or recreational drug use. He is and lives at home with his . He has 4 children. 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 He exercises on a regular basis. REVIEW OF SYSTEMS: As per HPI, all other review of systems reviewed and negative at this time. ALLERGIES: 1. KEFLEX. 2. NIFEDIPINE. 3. NSAIDS. MEDICATIONS AN OUTPATIENT: 1. Aspirin 81 mg daily. 2. Atorvastatin 40 mg daily. 3. Candesartan 8 mg daily. 4. Tylenol p.r.n. 5. Gabapentin 900 mg b.i.d. 6. Hydrochlorothiazide 12.5 mg daily. 7. Prilosec daily. 8. Maxalt p.r.n. PHYSICAL EXAMINATION: VITALS: Temperature 36.7, pulse 62, respiratory rate 12, blood pressure 126/75. GENERAL: Awake, alert, oriented x3 in no acute distress. HEENT: Normocephalic, atraumatic. Pupils equal, round, reactive to light and accommodation. Extraocular muscles intact. Anicteric sclerae. Moist mucous membranes. NECK: No JVD, no bruit. CARDIOVASCULAR: Regular. No S4. Normal S1 and S2. No S3. No murmurs, rubs or gallops. PULMONARY: Clear to auscultation bilaterally. No rales, rhonchi, or wheezing. ABDOMEN: Bowel sounds x4, soft. No rebound, guarding, tenderness. No organomegaly. EXTREMITIES: No clubbing, cyanosis or edema. +2 pedal pulses bilaterally. SKIN: Warm and dry. TEST RESULTS: Cardiac catheterization showed no significant obstructive coronary artery disease. A 2D echocardiogram showed normal LV chamber size with mild concentric LVH, normal LV systolic function, EF 65-70%, no segmental wall motion abnormalities were noted, grade 2 diastolic dysfunction, no significant valvular pathology. Mild enlargement of the aortic root, ascending aorta not visualized. IMPRESSION: 1. Hypertensive urgency. 2. Migraine, ongoing. 3. No significant obstructive disease by cardiac catheterization. 4. Diastolic dysfunction with normal LV systolic function. 5. Mild enlargement of the aortic root. The patient received serial CAT scans for history of pulmonary nodules and denies ever been told he has aortic aneurysm in the past. RECOMMENDATIONS: It was my pleasure to see Mr. Romano in consultation today. From a cardiac standpoint, the patient did have an episode of hypertensive urgency, so to that end, I believe stricter blood pressure control is necessary. He already took his home dose of candesartan 8 mg this morning, but given the fact that it is a relatively low dose, I will start him on losartan/hydrochlorothiazide 50/12.5 mg daily starting today and will follow his blood pressure during his stay. We will also keep a close eye on his renal function and up titrate medications as necessary. Otherwise, no further cardiac testing or intervention is necessary. I will ask our neurology colleagues to evaluate him for his ongoing migraine to see if they can help get him some relief. Otherwise, the patient should be continued to monitor on telemetry at this time.
[2019-03-10] MEDS ORDERED: REFRESH TEARS OP PRN (12:09)
[2019-03-10] MEDS ORDERED: ARTIFICIAL TEARS OP PRN (12:09)
--- NOTE | 2019-03-10 15:17 | Neurology Consultation ---
Date of Consultation March 10, 2019 Assessment & Plan (1) Migraine headache without aura: 1. MRI with no acute findings 2. currently taking gabepentin 900 mg BID and Maxalt prn 3. botox injections - every quarter at [facility] 4. TTE no ASD 5. yearly vision exams with no chronic findings- due in June 6. cardiology should weigh in if maxalt is acceptable due to heart issues although coronary good 7. could either take gabepentin divided into TID doses or increase dose according to renal function 8. amitriptyline may be an option but unclear what he has been on in the past follow up with neurology at [facility] as scheduled Supervising Physician Co-Signing Physician Notes I have seen and discussed above patient with Dr Elizabeth Childress, neurology. Pt seen and examined. Hx of daily nonthrobbing rucker with migraine. Typically takes maxalt for migraine.has been on mult prophylaxtive meds which he does not remember. Got a different type of chest pain with maxalt use and headache escalated after it was taken. Bp at home after taking maxalt was greater than 200 systoli. Not worst headache of life, no neuro sx. Exam , no bruits or murmurs, nl russo, speech, no facial droop. Symmetric UE strenght. troponin elvated by report cardiac cath neg.MRI brain unremarkable. Imp chronic headache, increased after maxalt use. Unclear if possibly maxalt increased bp which then lead to increased headache. Would rec increase gabapentin to 900 mg in am, 300 mg in afternoon and 900 mg in PM. If dose maximized and not effective could add a tricyclic such as amitriptyline or nortriptyline. Would need card iology to advise as to whether any contraindications. Also need cardiology to advise re ongoing use of triptans. Ie is pt thought to have any CAD, or vasospastic angina which would be a contraindication to triptans. Additionally if no cardiac contraindications, bp would need to be in good control if it continues to be used. Pt is followed at the [place], and I assume he is seeing neurology at the [place]. If not he could be referred to see us in follow-up. 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 He normally sees the [facility]. 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 Hi PCP increased his Candesartan from 4 mg to 8 mg daily 2 weeks ago on clinic visit. He had a worsening of daily migraine attacks and a SBP 180s-200s. He had some burning upper chest pain different from usual heartburn attack, with nausea. He had some relief of chest pain following aspirin and nitroglycerin administration in the ED but he states his migraine was 9.5 in intensity. He does not have auras with his migraines and has been on gabapentin 900 mg BID for years. more recently he started receiving botox injections for his migraines quarterly. They have been significantly reduced in intensity but still come in clusters of 3 at a time he is also light sensitive. . Last night he was given Tylenol IV and steroids but he does not think either helped much. Normal coronaries on diagnostic cardiac catheterization as per silk worker. His CP has resolved and his migraine is now down to 4-5. He was also recently given Maxalt for the headaches which he has been using in a limited about and also using Tylenol 500 mg 2 tablets twice daily. denies CP, SOB, abdominal pain, one sided weakness, numbness tingling, N, V, +headache. Allergies Allergy/AdvReac Type Severity Reaction Status Date / Time cephalexin [From Keflex] Allergy Unknown 30 YRS Verified 03/09/19 22:05 AGO-UNKNOWN nifedipine Allergy NUMBNESS Verified 03/09/19 22:05 IN FACE NSAIDS (Non-Steroidal AdvReac Unknown TO AVOID Verified 03/09/19 22:05 Anti-Inflamma DUE TO KIDNEY FUNCTION Home Medications Home Medications Medication Instructions Recorded Confirmed Type [place]-3 2 tab PO BID 01/13/19 03/09/19 History Prilosec OTC 40 mg PO QAM 01/13/19 03/09/19 History Restasis 1 drp OPHTHALMIC (EYE) Q12H 01/13/19 03/09/19 History acetaminophen [Tylenol Extra 1,000 mg PO BID 01/13/19 03/09/19 History Strength] aluminum hydroxide gel 640 mg PO QID PRN 01/13/19 03/09/19 History aspirin [Aspir-81] 81 mg PO QAM 01/13/19 03/09/19 History atorvastatin [Lipitor] 40 mg PO HS 01/13/19 03/09/19 History candesartan 8 mg PO QAM 01/13/19 03/09/19 History colestipol 1 g PO QPM 01/13/19 03/09/19 History fexofenadine [Concha Allergy] 180 mg PO QAM 01/13/19 03/09/19 History gabapentin 900 mg PO BID 01/13/19 03/09/19 History glucosamine sulfate [Glucosamine] 4,500 mg PO QAM 01/13/19 03/09/19 History hydrochlorothiazide 12.5 mg PO QAM 01/13/19 03/09/19 History ranitidine HCl [Zantac] 300 mg PO HS 01/13/19 03/09/19 History rizatriptan 1 tab PO UD PRN 01/13/19 03/09/19 History mirtazapine 7.5 mg PO HS 02/14/19 03/09/19 History Patient History Medical History Degenerative disc disease CERVICAL. PT HAS HAD MRI AND MULTIPLE INJECTIONS. PT STATES HE GETS NUMBNESS IN BILATERAL HANDS/FINGER GERD (gastroesophageal reflux disease) History of solitary pulmonary nodule PT IS MONITORED ON REGULAR BASIS. Hyperlipidemia Hypertension Migraine receives botox injections for this Sciatica Receives quarterly injections Sleep apnea CPAP HS Surgical History History of repair of rotator cuff 4 years ago History of cardiac radiofrequency ablation 10+ YEARS AGO FOR HX OF ARRYTHMIA. (UNK TYPE). [facility]-NO ISSUES SINCE History of eye surgery PRK SURGERY ON B/L EYES History of tonsillectomy S/P Botox injection HISTORY OF BOTOX INJECTIONS AT [facility] FOR TX OF MIGRAINES. NEXT INJECTION 01/24/19. Social History Preferred Language: Kazakh Communication Ability: Effective Tax Adjuster Required: No Beliefs That Will Affect Care: None Current Living Situation: Spouse Current Living Situation Comment: [facility] Other Information That Helps Us Care for You: No Feels Safe at Home: Yes Safety Concerns: Feels Safe At This Time Smoking Status: Never smoker Hx Alcohol Use: No Hx Substance Use: No Physical Exam Vital Signs (Past 24 Hours): Last Vital Signs Temp 36.8 C 03/10/19 11:18 Pulse 73 03/10/19 11:18 Resp 18 03/10/19 11:18 BP 115/73 03/10/19 11:18 Pulse Ox 95 03/10/19 11:18 Physical Exam: Constitutional: appearance over nourished, healthy in a darkened room Ears, Nose, Mouth and Throat: mucous membranes moist, no injection and skin normal, eyes normal Cardiovascular: normal S-1 and S-2 and regular rate and rhythm Respiratory: clear to auscultation (CTA) and no rales, rhonchi or wheeze Musculoskeletal: no peripheral edema and good distal pulses Skin: no stigmata of neurocutaneous disease noted and normal and intact Eyes: extraocular muscles intact (EOMI) and pupils equal, round and reactive to light (PERRL), good vascular pulsations NEUROLOGIC EXAMINATION: Mental status: Alert and interactive Oriented to full date and location Oriented to person Speech fluent with no evidence of aphasia Cranial Nerves smile eye brow raise symmetric Reflexes: Deep tendon reflexes were symmetrical and graded 2/5. Plantar responses were flexor. Sensory: intact to light and cool touch Coordination: finger to nose no bi pass Gait/Stance: Posture lying in bed Motor: Negative for pronator drift of out stretched arms with eyes closed. Strength: hand endoscopy rn biceps triceps bilaterally 5/5 hip flex patellar plantar flex ext 5/5 bilaterally Results & Data Laboratory Results Abnormal lab results 03/09/19 03/09/19 03/09/19 Range/Units 22:20 22:20 23:34 RBC (4.7-6.1) M/uL Hgb (14.0-18.0) g/dL Hct 41.8 L (42-52) % MPV (7.4-10.4) fL Lymph # (Auto) 1.15 L (1.2-3.4) K/uL [place] # (Auto) 0.83 H (0.11-0.59) K/uL Activ Coag Time Kaolin 175 H (94-140) SECONDS Chloride (98-107) mmol/L BUN 21 H (7-18) mg/dl Glucose 100 H (70-99) mg/dl Calcium (8.5-10.1) mg/dl AST 42 H (15-37) U/L Troponin I 0.051 H* (0-0.045) ng/ml 03/10/19 03/10/19 Range/Units 06:00 06:00 RBC 4.52 L (4.7-6.1) M/uL Hgb 13.8 L (14.0-18.0) g/dL Hct 39.9 L (42-52) % MPV 10.7 H (7.4-10.4) fL Lymph # (Auto) 0.71 L (1.2-3.4) K/uL [place] # (Auto) (0.11-0.59) K/uL Activ Coag Time Kaolin (94-140) SECONDS Chloride 108 H (98-107) mmol/L BUN (7-18) mg/dl Glucose 123 H (70-99) mg/dl Calcium 8.2 L (8.5-10.1) mg/dl AST (15-37) U/L Troponin I 0.050 H* (0-0.045) ng/ml Diagnostic Findings TTE- EF 65-70 % no ASD CXR-Parenchymal infiltrate possibly combined with a small effusion right base. CT head-No acute intracranial abnormality. MRI No acute intracranial abnormality.
--- NOTE | 2019-03-10 17:44 | Hospitalist Progress Note ---
Date of Service March 10, 2019 Assessment & Plan (1) Chest pain: Chest Pain Hypertensive Urgency Diastolic dysfunction with normal LV systolic function. Likely due to uncontrolled Migraine Mild Troponin elevation--likely demand ischemia S/P Cardiac Cath:No significant obstructive disease ECHO: Grade II diastolic dysfunction Started on losartan/hydrochlorothiazide 50/12.5 mg daily DCed candesartan Appreciate Cardiology Recurrent Migraine headaches: MRI Brain:No acute intracranial abnormality. S/P botox injections in the past Has been on Gabapentin and Maxalt PRN Nephrology consulted for Input Hyperlipidemia Continue statins H/O dual AV fidelia pathway S/P ablation on Aspirin prophylaxis (Aspirin had been on hold at home the last few days in preparation for an upcoming outpatient cervical spine injection at [facility] this week) GERD: Continue PPI DVT Px: Lovenox SQ Code Status Full code Subjective Patient is seen and examined at bedside Reports having migraine headache Chest pain resolved Denies SOB, dizziness, nausea No other complaints Physical Exam Vital Signs (Past 24 Hours): Last Vital Signs Temp 36.7 C 03/10/19 15:28 Pulse 83 03/10/19 15:28 Resp 19 03/10/19 15:28 BP 133/77 03/10/19 15:28 Pulse Ox 95 03/10/19 15:28 Physical Exam: Physical Exam: Vitals signs as noted above General Appearance:Moderately built and nourished, no apparent distress Head: normocephalic, Atraumatic Eyes: normal inspection, EOMI Neck: supple, Trachea midline Respiratory/Chest: Normal breath sounds, CTA Cardiovascular: S1, S2, No murmur Abdomen/GI:Soft, Non tender, Bowel sounds present Extremities/Musculoskelatal:normal inspection, no edema Neurologic/Psych:AAOX3, grossly no focal neurological deficits Skin: normal color, warm Results & Data Laboratory Results Short CBC 03/09/19 03/10/19 Range/Units 22:20 06:00 WBC 4.86 5.19 (4.8-10.8) K/uL Hgb 14.7 13.8 L (14.0-18.0) g/dL Hct 41.8 L 39.9 L (42-52) % Plt Count 147 148 (130-400) K/uL BMP 03/09/19 03/10/19 22:20 06:00 Sodium 142 137 Potassium 3.9 4.1 Chloride 106 108 H Carbon Dioxide 28 26 BUN 21 H 18 Creatinine 1.38 1.17 Glucose 100 H 123 H Calcium 9.4 8.2 L Cardiac Enzymes 03/09/19 03/10/19 Range/Units 22:20 06:00 Troponin I 0.051 H* 0.050 H* (0-0.045) ng/ml Liver Function 03/09/19 Range/Units 22:20 Total Bilirubin 0.6 (0.2-1) mg/dl AST 42 H (15-37) U/L ALT 62 (12-78) U/L Alkaline Phosphatase 81 (45-117) U/L Albumin 4.0 (3.4-5.0) gm/dl (1) Chest pain Chest pain type: unspecified Qualified Code(s): R07.9 - Chest pain, unspecified
[2019-03-10] MEDS: cycloSPORINE (RESTASIS) OP SCH (20:37)
[2019-03-10] MEDS ORDERED: MIRTAZAPINE TAB 15 MG TAB PO SCH (21:00)
[2019-03-11 07:10] LABS: Hematocrit (blood only) 39.3 % (42-52); Hemoglobin 13.7 g/dL (14.0-18.0); Mean Corpuscular Hgb Conc 34.9 g/dL (32-36); Mean Corpuscular Volume 89.1 fL (80-100); Mean Platelet Volume 11.3 fL (7.4-10.4); Platelet Count 160 K/uL (130-400); RDW Coefficient of Variation 13.2 % (11.5-14.5); RDW Standard Deviation 42.9 fL (36.4-46.3); Red Blood Count 4.41 M/uL (4.7-6.1); White Blood Count 12.24 K/uL (4.8-10.8)
[2019-03-11 07:29] LABS: BUN Creatinine Ratio 14.6 (10-20); Calcium 8.5 mg/dl (8.5-10.1); Creatinine Clr Calc Pharmacy 72.9 ml/min; Est GFR (African American) 78.9; Est GFR (Non-African American) 68.1; Magnesium 2.1 mg/dl (1.8-2.4); Potassium 3.9 mmol/L (3.5-5.1)
[2019-03-11] MEDS: GABAPENTIN 300 MG CAP PO SCH (08:52)
[2019-03-11] MEDS: PANTOprazole 40 MG TAB PO SCH (08:52)
[2019-03-11] MEDS: LOSARTAN/HCTZ 50/12.5MG TAB PO SCH (08:53)
[2019-03-11] MEDS: FEXOFENADINE HCL 180 MG TAB PO SCH (08:53)
[2019-03-11] MEDS: cycloSPORINE (RESTASIS) OP SCH (08:53)
[2019-03-11] MEDS: ENOXAPARIN INJ 40 MG/0.4 ML SYR SQ SCH (08:53)
[2019-03-11] MEDS: ASPIRIN 81 MG ECTAB PO SCH (08:53)
[2019-03-11] MEDS: ACETAMINOPHEN 1,000 MG/100 ML VIAL IV PRN (09:12)
--- NOTE | 2019-03-11 09:36 | Cardiology Progress Note ---
Date of Service March 11, 2019 Assessment & Plan (1) Hypertensive urgency: improved likely a pain component to bp spike but numbers have been trending up tolerating losartan and hctz well would d/c home on: losartan 50mg po daily hctz 12.5mg daily I have asked him to keep a daily bp log and contact my office in 1 week with readings my office will call him to arrange f/u in 1 month ok to d/c to home from cardiac standpoint. (2) Chest pain: secondary to hypertensive urgency cardiac cath without disease cont asa and atorvastatin (3) Migraine headache without aura: treatment as per neurology no limitations from a cardiac standpoint ok to use maxalt, I will tailor antihypertensive regimen as needed Subjective Pt seen and examined, oob in chair, states that he's feeling much better this AM. Denies cp, sob, palpitations, lightheadedness or dizziness. tele reviewed: sinus rhythm without arrhythmia or significant ectopy. Review of Systems All systems reviewed & are unremarkable except as noted in HPI & below Physical Exam Vital Signs (Past 24 Hours): Last Vital Signs Temp 36.5 C 03/11/19 07:37 Pulse 61 03/11/19 07:37 Resp 18 03/11/19 07:37 BP 145/87 H 03/11/19 07:37 Pulse Ox 97 03/11/19 07:37 Physical Exam: General: Awake, alert and oriented x 3. No acute distress. HEENT: Normocephalic, atraumatic. Pupils equal, round and reactive to light and accommodation. Extraocular muscles are intact. Anicteric sclera. Moist mucous membranes. Neck: No JVD. No bruit. Cardiovascular: Regular. Positive S-4. Normal S-1 and S-2. No S-3. No murmurs or rubs. Pulmonary: Clear to auscultation B/L. No rales, rhonchi or wheezing Abdomen: Bowel sounds x 4, soft. No rebound, guarding or tenderness. No organomegaly. Extremities: No clubbing, cyanosis or edema. +2 pedal pulses bilaterally. Skin: Warm and dry. (1) Chest pain Chest pain type: unspecified Qualified Code(s): R07.9 - Chest pain, unspecified
[2019-03-11] MEDS ORDERED: GABAPENTIN 600 MG TAB PO SCH (14:00)
--- NOTE | 2019-03-11 14:13 | Hospitalist Progress Note ---
Date of Service March 11, 2019 Assessment & Plan (1) Chest pain: Chest Pain Hypertensive Urgency Diastolic dysfunction with normal LV systolic function. Likely due to uncontrolled Migraine Mild Troponin elevation--likely demand ischemia S/P Cardiac Cath:No significant obstructive disease ECHO: Grade II diastolic dysfunction Candesartan Discontinued Appreciate Cardiology Input Plan to discharge on --losartan 50mg po daily and HCTZ 12.5mg daily Needs FU with Cardiology in 1 month Recurrent Migraine headaches: MRI Brain:No acute intracranial abnormality. S/P botox injections in the past Has been on Gabapentin and Maxalt PRN Appreciate Nephrology Input Ok to continue Maxalt as per Cards Change Gabapentin 900mg BID to 600mg TID as per Neurology Needs fu with Neurology upon discharge Hyperlipidemia Continue statins H/O dual AV fidelia pathway S/P ablation on Aspirin prophylaxis (Aspirin had been on hold at home the last few days in preparation for an upcoming outpatient cervical spine injection at [facility] this week) GERD: Continue PPI DVT Px: Lovenox SQ Code Status Full code Subjective Patient is seen and examined at bedside Doing much better today Headache much improved Discussed with Neurology today No new complaints Denies SOB, dizziness, nausea, chest pain Eager to get discharged Physical Exam Vital Signs (Past 24 Hours): Last Vital Signs Temp 36.7 C 03/11/19 11:30 Pulse 66 03/11/19 11:30 Resp 17 03/11/19 11:30 BP 140/90 03/11/19 11:30 Pulse Ox 97 03/11/19 11:30 Physical Exam: Physical Exam: Vitals signs as noted above General Appearance:Moderately built and nourished, no apparent distress Head: normocephalic, Atraumatic Eyes: normal inspection, EOMI Neck: supple, Trachea midline Respiratory/Chest: Normal breath sounds, CTA Cardiovascular: S1, S2, No murmur Abdomen/GI:Soft, Non tender, Bowel sounds present Extremities/Musculoskelatal:normal inspection, no edema Neurologic/Psych:AAOX3, grossly no focal neurological deficits Skin: normal color, warm Results & Data Laboratory Results Short CBC 03/11/19 Range/Units 06:35 WBC 12.24 H (4.8-10.8) K/uL Hgb 13.7 L (14.0-18.0) g/dL Hct 39.3 L (42-52) % Plt Count 160 (130-400) K/uL BMP 03/11/19 06:35 Sodium 139 Potassium 3.9 Chloride 108 H Carbon Dioxide 27 BUN 17 Creatinine 1.14 Glucose 108 H Calcium 8.5 (1) Chest pain Chest pain type: unspecified Qualified Code(s): R07.9 - Chest pain, unspecified
--- NOTE | 2019-03-11 14:20 | Discharge Summary ---
Date of Service March 11, 2019 Admission HPI Per Admitting Provider History obtained from patient. 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 Last month, patient noted suboptimal BP control at home, SBP 140-160s. PCP increased home Candesartan from 4 mg to 8 mg daily 2 weeks ago on clinic visit. Improved BP control at home noted subsequently. Yesterday, patient noted worsening of daily migraine attacks. SBP 180s-200s. Patient subsequently noted burning upper chest pain different from usual heartburn attack, with nausea. Denies junky cough symptoms. At the ER, patient had relief of chest pain following aspirin and nitroglycerin administration. Heart alert subsequently called. Normal coronaries on diagnostic cardiac catheterization as per chro. Patient currently in telemetry, chest pain-free. Migraine headache unimproved. Medical History as above Surgical History : Orthopedic procedures Family History : Heart disease, brain tumor Personal/Social history : Non-smoker, occasional EtOH intake, retired [employer] service Admission Exam Per Admitting Provider GENERAL: Comfortable, pleasant, no respiratory distress SKIN: Normal color, warm HEENT: [place] palpebral conjunctivae, no ptosis, dry buccal mucosa NECK : Supple, no tenderness CHEST : CTA, no tenderness HEART : RRR, no obvious murmurs ABDOMEN: Some distention, nontender EXTREMITIES : No LE swelling, no LE tenderness; dressing/band right wrist NEUROLOGIC : Coherent, no facial asymmetry, no other gross focality Principal Diagnosis Discharge Information Discharge Diagnosis Hypertensive Urgency Chest pain Migraine Discharge Goals Decrease discomfort,Improve disease control, Improve function Discharge Activity Limitations Resume your previous activity Discharge Data Allergies Allergy/AdvReac Type Severity Reaction Status Date / Time cephalexin [From Keflex] Allergy Unknown 30 YRS Verified 03/09/19 22:05 AGO-UNKNOWN nifedipine Allergy NUMBNESS Verified 03/09/19 22:05 IN FACE NSAIDS (Non-Steroidal AdvReac Unknown TO AVOID Verified 03/09/19 22:05 Anti-Inflamma DUE TO KIDNEY FUNCTION Consultations 03/10/19 00:51 Consult Cardiology Routine 03/10/19 09:08 Consult Neurology Routine Procedures Performed Operation Date: 03/10/19 00:10 Actual Procedures p Cath, Left with Cors and Vent(Left) - Aníbal Potter MD s Cineradiography w/Routine Exam - Aníbal Potter MD Brain MRI: No acute intracranial abnormality. CT head: No acute intracranial abnormality. CXR: Parenchymal infiltrate possibly combined with a small effusion right base. Ordered Studies 03/09/19 22:22 CT head/brain wo con Stat 03/10/19 00:07 CL Cath Imgs for PACS use only Stat 03/10/19 02:36 MR brain wo/w con Routine Hospital Course (1) Chest pain: Chest Pain Hypertensive Urgency Diastolic dysfunction with normal LV systolic function. Likely due to uncontrolled Migraine Mild Troponin elevation--likely demand ischemia S/P Cardiac Cath:No significant obstructive disease ECHO: Grade II diastolic dysfunction Candesartan Discontinued Appreciate Cardiology Input Plan to discharge on --losartan 50mg po daily and HCTZ 12.5mg daily Needs FU with Cardiology in 1 month Recurrent Migraine headaches: MRI Brain:No acute intracranial abnormality. S/P botox injections in the past Has been on Gabapentin and Maxalt PRN Appreciate Nephrology Input Ok to continue Maxalt as per Cards Change Gabapentin 900mg BID to 600mg TID as per Neurology Needs fu with Neurology upon discharge Hyperlipidemia Continue statins H/O dual AV fidelia pathway S/P ablation on Aspirin prophylaxis (Aspirin had been on hold at home the last few days in preparation for an upcoming outpatient cervical spine injection at [facility] this week) GERD: Continue PPI DVT Px: Lovenox SQ Code Status Full code Total Time Total Time Spent Total Time Spent (In Minutes): 32 minutes Total Time Includes: Examination of the Patient, Discharge Planning, Medication Reconciliation, Communication With Other Providers and Other Discharge Plan Discharge Items Patient Disposition: Home - Self-Care Reason For Visit: CP Discharge Diagnosis: Hypertensive Urgency Chest pain Migraine Discharge Goals: Decrease discomfort, Improve disease control and Improve function Activity: Resume your previous activity Non-emergency contact: Primary Care Provider, Home Health Lpn and Neurologist Call non-emergency contact if: you have any medication questions, your symptoms worsen, your pain is not controlled, your pain is worsening, your pain is unusual for you, your pain is concerning for you and you have a fever Follow-up/Referrals: Yovanny Vargas [Primary Care Provider] - Diet: Heart Healthy Add Provider Instructions: Follow up with your Primary Care Physician in 1 week Follow up with your Neurologist in 2-4 weeks Follow up with your Home Health Lpn in 2-4 weeks as advised Seek immediate medical attention if your symptoms reoccur or worsen Prescriptions: New gabapentin 600 mg Tablet 600 mg PO TID 30 Days Qty: 90 RF: 0 losartan-hydrochlorothiazide 50-12.5 mg Tablet 1 tab PO QAM 30 Days Qty: 30 RF: 0 Continued atorvastatin [Lipitor] 40 mg Tablet 40 mg PO HS RF: 0 ranitidine HCl [Zantac] 300 mg Tablet 300 mg PO HS RF: 0 glucosamine sulfate [Glucosamine] 500 mg Tablet 4,500 mg PO QAM RF: 0 fexofenadine [Concha Allergy] 180 mg Tablet 180 mg PO QAM RF: 0 aspirin [Aspir-81] 81 mg Tablet,Delayed Release (Dr/Ec) 81 mg PO QAM RF: 0 acetaminophen [Tylenol Extra Strength] 500 mg Tablet 1,000 mg PO BID RF: 0 rizatriptan 10 mg Tablet,Disintegrating 1 tab PO UD PRN (Reason: Migraine Headache) RF: 0 aluminum hydroxide gel 320 mg/5 mL Suspension 640 mg PO QID PRN (Reason: PRN) RF: 0 colestipol 1 gram Tablet 1 g PO QPM RF: 0 Restasis 0.05 % Dropperette 1 drp OPHTHALMIC (EYE) Q12H RF: 0 Prilosec OTC 20 mg Tablet,Delayed Release (Dr/Ec) 40 mg PO QAM RF: 0 [place]-3 350 mg-235 mg- 90 mg-597 mg Capsule,Delayed Release(Dr/Ec) 2 tab PO BID RF: 0 mirtazapine 7.5 mg Tablet 7.5 mg PO HS RF: 0 Discontinued candesartan 4 mg Tablet 8 mg PO QAM RF: 0 hydrochlorothiazide 12.5 mg Capsule 12.5 mg PO QAM RF: 0 gabapentin 300 mg Capsule 900 mg PO BID RF: 0 Stand-Alone Forms: [facility]/Other Patient Handouts: Losartan Potassium Hydrochlorothiazide Oral tablet, Catheterization Cardiac, Cath Cardiac Dc Discharge Orders: Discharge Order (Routine); Ordered 03/11/19 Ordered By: Enrique Bernstein Admission Data Admit Date/Time: 03/10/19 00:55 Attending Provider: Enrique Bernstein Admit Provider: Dragan Beasley Primary Care Provider: Yovanny Vargas Other Providers: Lance Gifford ; Luis Grant,Kevin E Service: Telemetry Other Interventions: Discharge Summary Assessment (RN) Last Done: 03/11/19 14:26 Pending Studies at Discharge: No DC Date/Time DO NOT enter until pt leaves facility: 03/11/19 15:14
== END 2019-03-11 15:14 | disposition home or self-care (01) ==
LOC: 2E 21:28 → ED 21:28 → 2E 03-10 00:10 → SUATTDRO 03-10 00:55

== ENCOUNTER 2022-11-12 22:14 | Inpatient (IN) ==
[2022-11-12] MEDS ORDERED: SODIUM CHLORIDE 0.9% 1000ML 1,000 ML IV ONE (23:00)
[2022-11-12] MEDS ORDERED: HYDROcodone/HOMATROPINE SYRUP 5MG/1.5MG 5ML UDP PO STA (23:00)
--- NOTE | 2022-11-12 23:04 | Emergency Department Note ---
Impression & Plan Influenza A, Hypoxia, Persistent cough ED Provider Note Name: IMMANUEL CRISTOBAL Jr Age: 67 Sex: M Arrives Via: Walk-In Informant: Patient, ED Provider: Calin Grimm MD Chief Complaint: Illness Impression: As per impressions above Medical Decision Makin-year-old gentleman with a history of hypertension, migraines who recently had a left kidney surgery at [facility]. He notes several weeks of persistent hacking cough. However the last 24 to 48 hours he is having increasing fevers and generalized illness. He states the fevers were getting worse. He had been on azithromycin and steroids recently as well. Work-up here reveals elevated D- dimer as well as a positive flu A. He was given a prolonged treatment of nebulizer,, Decadron and some IV fluids. Patient was febrile and given Tylenol. He did get blood cultures and lactic acid. He is not hypotensive and lactate is not elevated. He has a viral infection I do not feel antibiotics are i ndicated. He was given Tamiflu for his influenza. Unfortunately patient is somewhat hypoxic without oxygen saturations in the upper 80s on room air. He was placed on nasal cannula and is doing much better. Hospitalist was consulted for further management. I will note that given his elevated D-dimer CTA of the chest was obtained which reveals no concerning findings at this time. Prior Medical Record and Triage/Nursing Notes reviewed by Me Additional history obtained from chart and Differentials:Reactive airway disease, pneumonia, pneumothorax, COPD, CHF, infections, cardiac ischemia, pulmonary embolism, musculoskeletal, gastrointestinal, as well as other pathologies. Vital Signs: reviewed and remarkable for tachycardia, fever, hypoxia Interventions: Decadron IV, DuoNeb, lidocaine neb, Hycodan, Tamiflu Labs:Reviewed and remarkable for elevated D-dimer, influenza a Imagin view chest x-ray no acute findings as per my interpretation. CTA of the chest as per radiology no concerning findings though poor contrast in vessels. EKG:As per my interpretation indication shortness of breath. Sinus tachycardia at 106 bpm with a QTC of 4 3. There is no ectopy nor ischemia. No significant change from July 05, 2020 other than rate has increased. Consults:Dr Ramos Manrique hospitalist Plan: Disposition:Hospitalization. Condition: Good History of Present Illness:67-year-old gentleman arrives for evaluation of fevers. Patient notes for the last 2 to 3 weeks he has been having increasing cough and congestion. He has had a round of prednisone, azithromycin, Tessalon Perles, codeine cough suppressant without much improvement. He started an albuterol inhaler a few days ago and the cough is gotten significantly worse s kervin then. He notes he feels the cough is deep within his chest but denies any neck pain, sore throat, headache. Denies any specific breathing difficulty but notes he is somewhat short of breath due to the coughing. He did recently have a procedure of his left kidney. Denies any urinary burning, frequency, blood in urine. He does not have much pain in the left flank which is where he had the procedure. Denies any abdominal pain, nausea, vomiting, back pain, diarrhea, leg swelling no other concerning signs or symptoms. Exertion makes worse. Rest makes a bit better. ROS: See above HPI for pertinent positives & negatives. A total of 10 systems reviewed and were otherwise negative. Past Medical History:Migraines, HTN, GERD, Hyperlipidemia Past Surgical History:Back Surgery Family History:See Below Social History:See Below Home Medications:See Below Allergies:See Below Vitals:Blood Pressure: 183/92, Pulse 121, RR 23, T 37.2C, O2 98% on RA Physical Exam: GENERAL: Patient is Uncomfortable appearing and in mild distress. Persistent h cesar cough. Warm to touch EYES: No scleral icterus, unremarkable pupils. ENT: Mucous membranes dry, no nasal congestion. NECK: No masses appreciated, nomeningismus, trachea is midline. RESPIRATORY: Dyspneic tachypneic with clear lungs bilaterally CARDIOVASCULAR: Tach.No murmurs, rubs, gallops appreciated. GASTROINTESTINAL: Abdomen soft, non-tender, no peritonitis.Bowel sounds positive.No masses appreciated. BACK: No midline tenderness, no CVA tenderness EXTREMITIES: Normal motion all extremities, no cyanosis, no edema. NEUROLOGIC: Alert and oriented, no acute motor or sensory deficits, no focal weakness, cranial nerves grossly intact. SKIN: No rash, no jaundice, no diaphoresis. PSYCH: Appropriate GCS: 15 ED Course: Times/Reassessments: Patient with gradually worsening oxygen saturation while here. Heart rate is come down some. He is agreeable to hospitalization. Calin Grimm MD Past Med/Surg History Medical History (Updated 11/13/22 @ 06:32 by Dragan Beasley MD) Degenerative disc disease CERVICAL. PT HAS HAD MRI AND MULTIPLE INJECTIONS. PT STATES HE GETS NUMBNESS IN BILATERAL HANDS/FINGER GERD (gastroesophageal reflux disease) History of solitary pulmonary nodule PT IS MONITORED ON REGULAR BASIS. Hyperlipidemia Hypertension Migraine receives botox injections for this Sciatica Receives quarterly injections Sleep apnea CPAP HS Surgical History History of cardiac radiofrequency ablation 10+ YEARS AGO FOR HX OF ARRYTHMIA. (UNK TYPE). [facility]-NO ISSUES SINCE History of eye surgery PRK SURGERY ON B/L EYES History of repair of rotator cuff 4 years ago History of tonsillectomy S/P Botox injection HISTORY OF BOTOX INJECTIONS AT [facility] FOR TX OF MIGRAINES. NEXT INJECTION 01/24/19. Family History Grandmother (Maternal) Family history of diabetes mellitus Father Family history of diabetes mellitus Brother Family history of diabetes mellitus Social History Smoking Status: Never smoker Second Hand Exposure: No; Hx Alcohol Use: No Hx Substance Use: No Preferred Language: Korean Communication Ability: Effective Appeals Referee Required: No Beliefs That Will Affect Care: Sikhism Current Living Situation: Spouse Current Living Situation Comment: [facility] Feels Safe at Home: Yes Safety Concerns: Feels Safe At This Time Assistive Devices: CPAP and Glasses Allergies Allergies Allergy/AdvReac Type Severity Reaction Status Date / Time cephalexin [From Keflex] Allergy Unknown 30 YRS Verified 08/31/22 10:45 AGO-UNKNOWN dexamethasone Allergy Unknown Unverified 08/31/22 10:45 nifedipine Allergy NUMBNESS Verified 08/31/22 10:45 IN FACE topiramate Allergy Unknown Unverified 08/31/22 10:45 NSAIDS (Non-Steroidal AdvReac Unknown TO AVOID Verified 08/31/22 10:45 Anti-Inflamma DUE TO KIDNEY FUNCTION Home Meds Home Medications Medication Instructions Recorded Confirmed acetaminophen 325 mg tablet 975 mg PO BID 07/05/20 11/13/22 (Tylenol) albuterol sulfate 90 mcg/actuation 2 inh inhalation Q4H PRN Shortness 07/05/20 11/13/22 aerosol inhaler Of Breath aspirin 81 mg tablet,delayed 81 mg PO DAILY 07/05/20 11/13/22 release (Artur Low Dose Aspirin) atorvastatin 80 mg tablet 40 mg PO HS 07/05/20 11/13/22 carboxymethylcellulose sodium 0.5 1 drp OPB USEASDIRECTD PRN Dry 07/05/20 % eye drops Eye(S) fexofenadine 180 mg tablet 180 mg PO DAILY 07/05/20 11/13/22 fluticasone propionate 50 2 spray intranasal BID 07/05/20 11/13/22 mcg/actuation nasal spray,suspension gabapentin 300 mg capsule See Rx Instructions .Route .COMPLEX 07/05/20 11/13/22 magnesium oxide 420 mg tablet 420 mg PO HS 07/05/20 11/13/22 omeprazole 20 mg capsule,delayed 20 mg PO DAILYBB 07/05/20 11/13/22 release riboflavin (vitamin B2) 100 mg 400 mg PO QAM 07/05/20 11/13/22 tablet alpha lipoic acid 600 mg capsule 600 mg PO DAILY 08/31/22 11/13/22 cyclosporine 0.05 % eye drops in a 1 drp ophthalmic (eye) Q12H 08/31/22 11/13/22 dropperette (Restasis) empagliflozin 10 mg tablet 10 mg PO DAILY 08/31/22 11/13/22 (Jardiance) fluoride (sodium) 1.1 % dental gel 1 applic dental QPM 08/31/22 11/13/22 glucosamine sulfate 2KCl 1,000 mg 4,500 mg PO QAM 08/31/22 11/13/22 tablet (Glucosamine Relief) lidocaine 5 % topical patch 1 patch topical DAILY PRN Pain 08/31/22 11/13/22 white petrolatum-mineral oil 83 1 applic ophthalmic (eye) HS 08/31/22 11/13/22 %-15 % eye ointment (Lubrifresh PM) azelastine 137 mcg (0.1 %) nasal 2 spray intranasal BID 11/13/22 11/13/22 spray aerosol fluoride (sodium) 1.1 % dental 1 applic dental DAILY 11/13/22 11/13/22 paste (Clinpro 5000) lanolin alcohols-mineral 1 applic topical BID 11/13/22 11/13/22 oil-w.petrolatum-ceresin topical cream (Eucerin topical cream) losartan 100 mg tablet 100 mg PO QAM 11/13/22 11/13/22 mometasone 50 mcg/actuation HFA 50 mcg inhalation AMPM 11/13/22 11/13/22 aerosol inhaler (Asmanex HFA) multivitamin with iron-mineral 1 tab PO DAILY 11/13/22 11/13/22 nortriptyline 10 mg capsule 20 mg PO HS 11/13/22 11/13/22 omega 0-dxr-arq-fish oil 1,200 mg 2 cap PO AMPM 11/13/22 11/13/22 (144 mg-216 mg) capsule (Fish Oil) Results & Data (ED) Vital Signs Vital Signs - 24 hr 11/12/22 22:15 11/12/22 23:23 11/13/22 00:40 Temperature 37.2 C Temperature Source Temporal Artery Scan Pulse Rate 121 H Pulse Rate [Finger] 98 H 105 H Pulse Rhythm Regular Pulse Strength Normal Respiratory Rate 23 22 26 H Respiratory Effort / Characteristics Non-Labored Spontaneous Non-Labored Spontaneous Respiratory Depth Normal Respiratory Pattern Regular Blood Pressure 183/92 H Blood Pressure [Right Arm] 164/84 H Blood Pressure Mean 122 Blood Pressure Mean [Right Arm] 110 Blood Pressure Position Sitting Pulse Oximetry 98 97 98 Oxygen Delivery Method Room Air Room Air Room Air Sepsis Recent Fever Within 48 Hours Yes Sepsis New/Unexplained Change in Mental Status N/A Sepsis Action Taken by Nursing No Action Required 11/13/22 01:47 11/13/22 02:20 11/13/22 02:00 Temperature 39.3 C H Temperature Source Oral Pulse Rate Pulse Rate [Finger] 135 H Pulse Rhythm Pulse Strength Respiratory Rate 25 H Respiratory Effort / Characteristics Respiratory Depth Respiratory Pattern Blood Pressure Blood Pressure [Right Arm] 156/81 H Blood Pressure Mean Blood Pressure Mean [Right Arm] 106 Blood Pressure Position Pulse Oximetry 93 87 L Oxygen Delivery Method Room Air Room Air Sepsis Recent Fever Within 48 Hours Sepsis New/Unexplained Change in Mental Status Sepsis Action Taken by Nursing Laboratory Data Result diagrams: 11/12/22 22:50 11/12/22 22:50 Lab Results 11/12/22 11/12/22 11/12/22 Range/Units 22:50 22:50 22:50 WBC 8.24 (4.8-10.8) K/ul RBC 5.14 (4.63-6.08) M/uL Hgb 13.2 L (14.0-18.0) g/dl Hct 40.8 (40.1-51.0) % MCV 79.4 L (80.0-100.0) fL MCH 25.7 (25.0-34.0) pg MCHC 32.4 (32.0-36.0) g/dL RDW Std Deviation 45.1 (36.4-46.3) fL RDW Coeff of Hemanth 15.7 H (11.5-14.5) % Plt Count 217 (130-400) K/uL MPV 10.8 (9.4-12.4) fL Immature Gran % (Auto) 0.2 % Neut % (Auto) 82.0 % Lymph % (Auto) 6.1 % [place] % (Auto) 10.8 % Eos % (Auto) 0.7 % Baso % (Auto) 0.2 % Neut # (Auto) 6.75 H (1.4-6.5) K/uL Lymph # (Auto) 0.50 L (1.2-3.4) K/uL [place] # (Auto) 0.89 H (0.24-0.82) K/uL Eos # (Auto) 0.06 (0-0.50) K/uL Baso # (Auto) 0.02 (0-0.2) K/uL Immature Gran # (Auto) 0.02 (0.00-0.02) K/uL D-Dimer 1590 H* (0-500) ug/L FEU Sodium 136 (136-145) mmol/L Potassium 3.7 (3.5-5.1) mmol/L Chloride 103 (98-107) mmol/L Carbon Dioxide 22 (21-32) mmol/L Anion Gap 11 (3-11) BUN 13 (6-23) mg/dl Creatinine 1.16 (0.6-1.4) mg/dl Est Cr Clr Drug Dosing 68.6 ml/min Est GFR ( Amer) 75.1 ml/min Est GFR (Non-Af Amer) 64.8 ml/min BUN/Creatinine Ratio 11.2 (10-20) Glucose 107 H (70-99(Fasting)) mg/dl Lactate (0.4-2.0) mmol/L Calcium 8.7 (8.5-10.1) mg/dl Magnesium 1.8 (1.7-2.4) mg/dl Total Bilirubin 0.6 (0.2-1.0) mg/dl Direct Bilirubin 0.1 (0-0.2) mg/dl AST 40 H (13-39) U/L ALT 41 (7-52) U/L Alkaline Phosphatase 91 (34-104) U/L Troponin I High Sens 16.3 (0-20) pg/ml Total Protein 7.5 (6.0-8.3) gm/dl Albumin 4.2 (3.4-5.0) gm/dl Procalcitonin (0-0.5) ng/ml Urine Color Urine Appearance (Clear) Urine pH (4.5-7.5) Ur Specific [place] (1.000-1.030) Urine Protein (Negative) Urine Glucose (UA) (Negative) Urine Ketones (Negative) Urine Blood (Negative) Urine Nitrite (Negative) Urine Bilirubin (Negative) Urine Urobilinogen (Negative) Ur Leukocyte Esterase (Negative) Urine WBC (Auto) (0-5) /hpf Urine RBC (Auto) (0-4) /hpf U Hyaline Cast (Auto) (0-5) /lpf U Epithel Cells (Auto) (0-5) /lpf Urine Bacteria (Auto) (Negative) SARS-CoV-2 (PCR) (Negative) Influenza Type A (PCR) (Neg) Influenza Type B (PCR) (Neg) RSV (RT-PCR) (Neg) 11/12/22 11/12/22 11/12/22 Range/Units 22:50 22:50 22:50 WBC (4.8-10.8) K/ul RBC (4.63-6.08) M/uL Hgb (14.0-18.0) g/dl Hct (40.1-51.0) % MCV (80.0-100.0) fL MCH (25.0-34.0) pg MCHC (32.0-36.0) g/dL RDW Std Deviation (36.4-46.3) fL RDW Coeff of Hemanth (11.5-14.5) % Plt Count (130-400) K/uL MPV (9.4-12.4) fL Immature Gran % (Auto) % Neut % (Auto) % Lymph % (Auto) % [place] % (Auto) % Eos % (Auto) % Baso % (Auto) % Neut # (Auto) (1.4-6.5) K/uL Lymph # (Auto) (1.2-3.4) K/uL [place] # (Auto) (0.24-0.82) K/uL Eos # (Auto) (0-0.50) K/uL Baso # (Auto) (0-0.2) K/uL Immature Gran # (Auto) (0.00-0.02) K/uL D-Dimer (0-500) ug/L FEU Sodium (136-145) mmol/L Potassium (3.5-5.1) mmol/L Chloride (98-107) mmol/L Carbon Dioxide (21-32) mmol/L Anion Gap (3-11) BUN (6-23) mg/dl Creatinine (0.6-1.4) mg/dl Est Cr Clr Drug Dosing ml/min Est GFR ( Amer) ml/min Est GFR (Non-Af Amer) ml/min BUN/Creatinine Ratio (10-20) Glucose (70-99(Fasting)) mg/dl Lactate (0.4-2.0) mmol/L Calcium (8.5-10.1) mg/dl Magnesium (1.7-2.4) mg/dl Total Bilirubin (0.2-1.0) mg/dl Direct Bilirubin (0-0.2) mg/dl AST (13-39) U/L ALT (7-52) U/L Alkaline Phosphatase (34-104) U/L Troponin I High Sens (0-20) pg/ml Total Protein (6.0-8.3) gm/dl Albumin (3.4-5.0) gm/dl Procalcitonin 0.07 (0-0.5) ng/ml Urine Color Dark Yellow Urine Appearance Clear (Clear) Urine pH 6.0 (4.5-7.5) Ur Specific [place] 1.023 (1.000-1.030) Urine Protein 3+ H (Negative) Urine Glucose (UA) 3+ H (Negative) Urine Ketones Negative (Negative) Urine Blood 2+ H (Negative) Urine Nitrite Negative (Negative) Urine Bilirubin Negative (Negative) Urine Urobilinogen Negative (Negative) Ur Leukocyte Esterase Negative (Negative) Urine WBC (Auto) 1-5 (0-5) /hpf Urine RBC (Auto) 5-10 H (0-4) /hpf U Hyaline Cast (Auto) 1-5 (0-5) /lpf U Epithel Cells (Auto) 10-20 H (0-5) /lpf Urine Bacteria (Auto) Negative (Negative) SARS-CoV-2 (PCR) NEGATIVE (Negative) Influenza Type A (PCR) Positive A* (Neg) Influenza Type B (PCR) Negative (Neg) RSV (RT-PCR) Negative (Neg) 11/12/22 Range/Units 23:15 WBC (4.8-10.8) K/ul RBC (4.63-6.08) M/uL Hgb (14.0-18.0) g/dl Hct (40.1-51.0) % MCV (80.0-100.0) fL MCH (25.0-34.0) pg MCHC (32.0-36.0) g/dL RDW Std Deviation (36.4-46.3) fL RDW Coeff of Hemanth (11.5-14.5) % Plt Count (130-400) K/uL MPV (9.4-12.4) fL Immature Gran % (Auto) % Neut % (Auto) % Lymph % (Auto) % [place] % (Auto) % Eos % (Auto) % Baso % (Auto) % Neut # (Auto) (1.4-6.5) K/uL Lymph # (Auto) (1.2-3.4) K/uL [place] # (Auto) (0.24-0.82) K/uL Eos # (Auto) (0-0.50) K/uL Baso # (Auto) (0-0.2) K/uL Immature Gran # (Auto) (0.00-0.02) K/uL D-Dimer (0-500) ug/L FEU Sodium (136-145) mmol/L Potassium (3.5-5.1) mmol/L Chloride (98-107) mmol/L Carbon Dioxide (21-32) mmol/L Anion Gap (3-11) BUN (6-23) mg/dl Creatinine (0.6-1.4) mg/dl Est Cr Clr Drug Dosing ml/min Est GFR ( Amer) ml/min Est GFR (Non-Af Amer) ml/min BUN/Creatinine Ratio (10-20) Glucose (70-99(Fasting)) mg/dl Lactate 1.1 (0.4-2.0) mmol/L Calcium (8.5-10.1) mg/dl Magnesium (1.7-2.4) mg/dl Total Bilirubin (0.2-1.0) mg/dl Direct Bilirubin (0-0.2) mg/dl AST (13-39) U/L ALT (7-52) U/L Alkaline Phosphatase (34-104) U/L Troponin I High Sens (0-20) pg/ml Total Protein (6.0-8.3) gm/dl Albumin (3.4-5.0) gm/dl Procalcitonin (0-0.5) ng/ml Urine Color Urine Appearance (Clear) Urine pH (4.5-7.5) Ur Specific [place] (1.000-1.030) Urine Protein (Negative) Urine Glucose (UA) (Negative) Urine Ketones (Negative) Urine Blood (Negative) Urine Nitrite (Negative) Urine Bilirubin (Negative) Urine Urobilinogen (Negative) Ur Leukocyte Esterase (Negative) Urine WBC (Auto) (0-5) /hpf Urine RBC (Auto) (0-4) /hpf U Hyaline Cast (Auto) (0-5) /lpf U Epithel Cells (Auto) (0-5) /lpf Urine Bacteria (Auto) (Negative) SARS-CoV-2 (PCR) (Negative) Influenza Type A (PCR) (Neg) Influenza Type B (PCR) (Neg) RSV (RT-PCR) (Neg) Administered Medications Lactated Ringer's (Lr) 1,000 mls @ 75 mls/hr IV .[id number] STA Stop: 11/13/22 16:36 Last Admin: 11/13/22 05:50 Dose: 75 mls/hr Documented By: JANY Discontinued Medications Acetaminophen (Acetaminophen 500 Mg Tab) 1,000 mg PO NOW STA Stop: 11/13/22 02:24 Last Admin: 11/13/22 03:07 Dose: 1,000 mg Documented By: PUMA Albuterol (Albut/Ipratrop 3mg/0.5mg Neb 3 Ml Vial) 12 ml NEB ONE ONE; Protocol Stop: 11/13/22 00:40 Last Admin: 11/13/22 01:05 Dose: 12 ml Documented By: MARK Dexamethasone Sodium Phosphate (DexamethasonePf 10 Mg/Ml Vial) 10 mg IV NOW ONE Stop: 11/13/22 01:11 Last Admin: 11/13/22 01:40 Dose: 10 mg Documented By: MARK Hydrocodone Bit/Homatropine Methylb (Hydrocodone/Homatropine Syrup 5mg/1.5mg 5ml Udp) 5 ml PO NOW STA Stop: 11/12/22 23:01 Last Admin: 11/12/22 23:29 Dose: 5 ml Documented By: MARK Sodium Chloride (Nss 1000ml) 1,000 mls @ 999 mls/hr IV .Q1H1M ONE Stop: 11/13/22 00:00 Last Infusion: 11/13/22 00:40 Dose: 0 mls/hr Documented By: Admin: 11/12/22 23:28 Dose: 999 mls/hr Documented By: MARK Sodium Chloride (Nss 1000ml) 1,000 mls @ 999 mls/hr IV .Q1H1M ONE Stop: 11/13/22 03:03 Last Infusion: 11/13/22 05:50 Dose: 0 mls/hr Documented By: Admin: 11/13/22 03:10 Dose: 999 mls/hr Documented By: PUMA Magnesium Sulfate/Dextrose (Magnesium Sulfate / D5w) 1 gm in 100 mls @ 50 mls/hr IV Q2H YAKOV Stop: 11/13/22 06:29 Last Admin: 11/13/22 05:34 Dose: 50 mls/hr Documented By: Infusion: 11/13/22 05:13 Dose: 50 mls/hr Documented By: Admin: 11/13/22 03:13 Dose: 50 mls/hr Documented By: PUMA Ioversol (Optiray 320 500ml) 125 ml IV ONCE ONE Stop: 11/13/22 00:24 Last Admin: 11/13/22 00:24 Dose: 110 ml Documented By: DAJA Lidocaine HCl (Lidocaine 4% Inh Soln 4 Ml Btl) 4 ml INH NOW ONE Stop: 11/12/22 23:37 Last Admin: 11/13/22 01:43 Dose: 4 ml Documented By: MARK Oseltamivir Phosphate (Oseltamivir Phosphate 75 Mg Cap) 75 mg PO NOW STA; Protocol Stop: 11/13/22 02:04 Last Admin: 11/13/22 03:06 Dose: 75 mg Documented By: PUMA Potassium Chloride (Potassium Chloride Pwd 20 Meq Pack) 40 meq PO NOW STA Stop: 11/13/22 02:29 Last Admin: 11/13/22 03:09 Dose: 40 meq Documented By: PUMA Discharge Plan Visit Data Chief Complaint: Fever Stated Complaint: FEVER OF 102, AT HOME COVID TEST NEG ED Provider: Calin Grimm Discharge Problem: Influenza A, Hypoxia, Persistent cough Patient Disposition: Admitted As Inpatient Discharge Instructions Interventions: ED Discharge Assessment Last Done: 11/13/22 06:12
[2022-11-12 23:14] LABS: Appearance Urine Clear (Clear); Bacteria Urine Automated Negative (Negative); Basophils # (auto) 0.02 K/uL (0-0.2); Basophils % (auto) 0.2 %; Bilirubin Urine Negative (Negative); Blood Urine 2+ (Negative); Color Urine Dark Yellow; Eosinophils # (auto) 0.06 K/uL (0-0.50); Eosinophils % (auto) 0.7 %; Glucose Urine UA 3+ (Negative); Hematocrit (blood only) 40.8 % (40.1-51.0); Hemoglobin 13.2 g/dl (14.0-18.0); Immature Granulocytes # (auto) 0.02 K/uL (0.00-0.02); Immature Granulocytes % (auto) 0.2 %; Ketones Urine Negative (Negative); Leukocyte Esterase Urine Negative (Negative); Lymphocytes % (auto) 6.1 %; Mean Corpuscular Hemoglobin 25.7 pg (25.0-34.0); Mean Corpuscular Hgb Conc 32.4 g/dL (32.0-36.0); Mean Corpuscular Volume 79.4 fL (80.0-100.0); Mean Platelet Volume 10.8 fL (9.4-12.4); Monocytes # (auto) 0.89 K/uL (0.24-0.82); Monocytes % (auto) 10.8 %; Neutrophils # (auto) 6.75 K/uL (1.4-6.5); Nitrite Urine Negative (Negative); Platelet Count 217 K/uL (130-400); Protein Urine 3+ (Negative); RDW Coefficient of Variation 15.7 % (11.5-14.5); RDW Standard Deviation 45.1 fL (36.4-46.3); Red Blood Count 5.14 M/uL (4.63-6.08); Specific Gravity Urine 1.023 (1.000-1.030); Urobilinogen Urine Negative (Negative); White Blood Count 8.24 K/ul (4.8-10.8)
[2022-11-12 23:35] LABS: Troponin I High Sensitivity 16.3 pg/ml (0-20)
[2022-11-12] MEDS ORDERED: LIDOCAINE 4% INH SOLN 4 ML BTL INH ONE (23:36)
[2022-11-12 23:45] LABS: Albumin Level 4.2 gm/dl (3.4-5.0); BUN Creatinine Ratio 11.2 (10-20); Bilirubin Direct 0.1 mg/dl (0-0.2); Bilirubin,Total 0.6 mg/dl (0.2-1.0); Calcium 8.7 mg/dl (8.5-10.1); Creatinine Clr Calc Pharmacy 68.6 ml/min; Est GFR (African American) 75.1 ml/min; Est GFR (Non-African American) 64.8 ml/min; Magnesium 1.8 mg/dl (1.7-2.4); Potassium 3.7 mmol/L (3.5-5.1); Total Protein 7.5 gm/dl (6.0-8.3)
[2022-11-12 23:56] LABS: D Dimer 1590 ug/L FEU (0-500)
[2022-11-13 00:01] LABS: Influenza B virus by PCR Negative (Neg); RSV by PCR Negative (Neg); SARS CoV2 RNA(COVID-19) Ceph NEGATIVE (Negative)
[2022-11-13 00:11] LABS: Influenza A virus by PCR Positive (Neg)
[2022-11-13] MEDS ORDERED: OPTIRAY 320 500ml IV ONE (00:23)
[2022-11-13] MEDS ORDERED: ALBUT/IPRATROP 3MG/0.5MG NEB 3 ML VIAL NEB ONE (00:39)
[2022-11-13] MEDS ORDERED: dexAMETHasone**PF** 10 MG/ML VIAL IV ONE (01:10)
[2022-11-13] MEDS ORDERED: SODIUM CHLORIDE 0.9% 1000ML 1,000 ML IV ONE (02:03)
[2022-11-13] MEDS ORDERED: OSELTAMIVIR PHOSPHATE 75 MG CAP PO STA (02:03)
[2022-11-13] MEDS ORDERED: ACETAMINOPHEN 500 MG TAB PO STA (02:23)
[2022-11-13] MEDS ORDERED: POTASSIUM CHLORIDE PWD 20 MEQ PACK PO STA (02:28)
--- NOTE | 2022-11-13 02:32 | History & Physical Report ---
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 Lovenox subcu Full code Text document was generated using [email or web address] voice recognition software. It may contain grammatical or spelling errors. Kindly contact undersigned for clarification of any documentation item in question. History of Present Illness Chief Complaint: Worsening cough, shortness of breath Primary Care Provider: Star Christine MD History obtained from patient. 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 Last [facility] confinement 2018 for chest pain with troponin elevation. Nonobstructive CAD on cardiac cath. Patient seen at [facility] ER last month for bronchitis symptoms. Inhalers later added to regimen by PCP. Improved bronchitis symptoms that patient discontinued inhalers on his own a few weeks ago. Patient confined at [facility] last week for biopsy and cryoablation of left renal cyst. Pathology pending. Patient noted worsening dry cough symptoms the last few days. Chest pain from coughing with some shortness of breath. No headache, no belly pain. Fair appetite. Patient not sure about sick contacts given recent hospital confinement. Patient has received seasonal flu vaccine for the year. Has not received COVID- 19 vaccination. Patient brought to ER for evaluation by worsening symptoms. O2 sats 80s at the ER at 1 point. Decadron, neb treatment, Tamiflu administered at the ER. Medical Historyas above Surgical History : Orthopedic procedures, renal cyst cryoablation Family History : Heart disease, brain tumor Personal/Social history : Non-smoker, occasional EtOH intake, retired [employer] service Allergies Allergy/AdvReac Type Severity Reaction Status Date / Time cephalexin [From Keflex] Allergy Unknown 30 YRS Verified 08/31/22 10:45 AGO-UNKNOWN dexamethasone Allergy Unknown Unverified 08/31/22 10:45 nifedipine Allergy NUMBNESS Verified 08/31/22 10:45 IN FACE topiramate Allergy Unknown Unverified 08/31/22 10:45 NSAIDS (Non-Steroidal AdvReac Unknown TO AVOID Verified 08/31/22 10:45 Anti-Inflamma DUE TO KIDNEY FUNCTION Home Medications Medication Instructions Recorded Confirmed Type acetaminophen 325 mg tablet 975 mg PO BID 07/05/20 11/13/22 History (Tylenol) albuterol sulfate 90 mcg/actuation 2 inh inhalation Q4H PRN Shortness 07/05/20 11/13/22 History aerosol inhaler Of Breath aspirin 81 mg tablet,delayed 81 mg PO DAILY 07/05/20 11/13/22 History release (Artur Low Dose Aspirin) atorvastatin 80 mg tablet 40 mg PO HS 07/05/20 11/13/22 History carboxymethylcellulose sodium 0.5 1 drp OPB USEASDIRECTD PRN Dry 07/05/20 11/13/22 History % eye drops Eye(S) fexofenadine 180 mg tablet 180 mg PO DAILY 07/05/20 11/13/22 History fluticasone propionate 50 2 spray intranasal BID 07/05/20 11/13/22 History mcg/actuation nasal spray,suspension gabapentin 300 mg capsule See Rx Instructions .Route .COMPLEX 07/05/20 11/13/22 History magnesium oxide 420 mg tablet 420 mg PO HS 07/05/20 11/13/22 History omeprazole 20 mg capsule,delayed 20 mg PO DAILYBB 07/05/20 11/13/22 History release riboflavin (vitamin B2) 100 mg 400 mg PO QAM 07/05/20 11/13/22 History tablet alpha lipoic acid 600 mg capsule 600 mg PO DAILY 08/31/22 11/13/22 History cyclosporine 0.05 % eye drops in a 1 drp ophthalmic (eye) Q12H 08/31/22 11/13/22 History dropperette (Restasis) empagliflozin 10 mg tablet 10 mg PO DAILY 08/31/22 11/13/22 History (Jardiance) fluoride (sodium) 1.1 % dental gel 1 applic dental QPM 08/31/22 11/13/22 History glucosamine sulfate 2KCl 1,000 mg 4,500 mg PO QAM 08/31/22 11/13/22 History tablet (Glucosamine Relief) lidocaine 5 % topical patch 1 patch topical DAILY PRN Pain 08/31/22 11/13/22 History white petrolatum-mineral oil 83 1 applic ophthalmic (eye) HS 08/31/22 11/13/22 History %-15 % eye ointment (Lubrifresh PM) azelastine 137 mcg (0.1 %) nasal 2 spray intranasal BID 11/13/22 11/13/22 History spray aerosol fluoride (sodium) 1.1 % dental 1 applic dental DAILY 11/13/22 11/13/22 History paste (Clinpro 5000) lanolin alcohols-mineral 1 applic topical BID 11/13/22 11/13/22 History oil-w.petrolatum-ceresin topical cream (Eucerin topical cream) losartan 100 mg tablet 100 mg PO QAM 11/13/22 11/13/22 History mometasone 50 mcg/actuation HFA 50 mcg inhalation AMPM 11/13/22 11/13/22 History aerosol inhaler (Asmanex HFA) multivitamin with iron-mineral 1 tab PO DAILY 11/13/22 11/13/22 History nortriptyline 10 mg capsule 20 mg PO HS 11/13/22 11/13/22 History omega 6-tql-ilx-fish oil 1,200 mg 2 cap PO AMPM 11/13/22 11/13/22 History (144 mg-216 mg) capsule (Fish Oil) Past Med/Surg History Medical History (Updated 11/13/22 @ 06:32 by Dragan Beasley MD) Degenerative disc disease CERVICAL. PT HAS HAD MRI AND MULTIPLE INJECTIONS. PT STATES HE GETS NUMBNESS IN BILATERAL HANDS/FINGER GERD (gastroesophageal reflux disease) History of solitary pulmonary nodule PT IS MONITORED ON REGULAR BASIS. Hyperlipidemia Hypertension Migraine receives botox injections for this Sciatica Receives quarterly injections Sleep apnea CPAP HS Surgical History History of cardiac radiofrequency ablation 10+ YEARS AGO FOR HX OF ARRYTHMIA. (UNK TYPE). [facility]-NO ISSUES SINCE History of eye surgery PRK SURGERY ON B/L EYES History of repair of rotator cuff 4 years ago History of tonsillectomy S/P Botox injection HISTORY OF BOTOX INJECTIONS AT [facility] FOR TX OF MIGRAINES. NEXT INJEC TION 01/24/19. Family History Grandmother (Maternal) Family history of diabetes mellitus Father Family history of diabetes mellitus Brother Family history of diabetes mellitus Social History Smoking Status: Never smoker Second Hand Exposure: No; Hx Alcohol Use: No Hx Substance Use: No Preferred Language: Guyanese Communication Ability: Effective Circuit Board Assembler Required: No Beliefs That Will Affect Care: Shinto Current Living Situation: Spouse Current Living Situation Comment: [facility] Feels Safe at Home: Yes Safety Concerns: Feels Safe At This Time Assistive Devices: CPAP and Glasses Review of Systems Review of Systems: As per HPI, all other systems reviewed and negative Physical Exam Physical Exam: GENERAL: uncomfortable, slightly anxious, obese, incessant coughing, minimal no respiratory distress SKIN: Normal color, warm HEENT: Castor palpebral conjunctivae, no ptosis, dry buccal mucosa, nasal cannula in place NECK : Supple, short neck, no tenderness CHEST : Decreased breath sounds, occasional expiratory wheezes, no tenderness HEART : Tachycardic, no obvious murmurs ABDOMEN: Some distention, nontender EXTREMITIES : No LE swelling, no LE tenderness, no other gross deformities NEUROLOGIC : Coherent, no facial asymmetry, no other gross focality Results & Data Results & Data ([facility]) Vital Signs (Past 12 Hours) Vital Signs Temp Pulse Pulse Resp BP BP Pulse Ox 11/13/22 02:20 39.3 C H 11/13/22 01:47 135 H 25 H 156/81 H 93 11/13/22 00:40 105 H 26 H 164/84 H 98 11/12/22 23:23 98 H 22 97 11/12/22 22:15 37.2 C 121 H 23 183/92 H 98 O2 Del Method 11/13/22 02:20 11/13/22 01:47 Room Air 11/13/22 00:40 Room Air 11/12/22 23:23 Room Air 11/12/22 22:15 Room Air Laboratory Results Laboratory Results WBC 8.24 K/ul (4.8-10.8) 11/12/22 22:50 RBC 5.14 M/uL (4.63-6.08) 11/12/22 22:50 Hgb 13.2 g/dl (14.0-18.0) L 11/12/22 22:50 Hct 40.8 % (40.1-51.0) 11/12/22 22:50 MCV 79.4 fL (80.0-100.0) L 11/12/22 22:50 MCH 25.7 pg (25.0-34.0) 11/12/22 22:50 MCHC 32.4 g/dL (32.0-36.0) 11/12/22 22:50 RDW Std Deviation 45.1 fL (36.4-46.3) 11/12/22 22:50 RDW Coeff of Hemanth 15.7 % (11.5-14.5) H 11/12/22 22:50 Plt Count 217 K/uL (130-400) 11/12/22 22:50 MPV 10.8 fL (9.4-12.4) 11/12/22 22:50 Immature Gran % (Auto) 0.2 % 11/12/22 22:50 Neut % (Auto) 82.0 % 11/12/22 22:50 Lymph % (Auto) 6.1 % 11/12/22 22:50 [place] % (Auto) 10.8 % 11/12/22 22:50 Eos % (Auto) 0.7 % 11/12/22 22:50 Baso % (Auto) 0.2 % 11/12/22 22:50 Neut # (Auto) 6.75 K/uL (1.4-6.5) H 11/12/22 22:50 Lymph # (Auto) 0.50 K/uL (1.2-3.4) L 11/12/22 22:50 [place] # (Auto) 0.89 K/uL (0.24-0.82) H 11/12/22 22:50 Eos # (Auto) 0.06 K/uL (0-0.50) 11/12/22 22:50 Baso # (Auto) 0.02 K/uL (0-0.2) 11/12/22 22:50 Immature Gran # (Auto) 0.02 K/uL (0.00-0.02) 11/12/22 22:50 D-Dimer 1590 ug/L FEU (0-500) H* 11/12/22 22:50 Sodium 136 mmol/L (136-145) 11/12/22 22:50 Potassium 3.7 mmol/L (3.5-5.1) 11/12/22 22:50 Chloride 103 mmol/L (98-107) 11/12/22 22:50 Carbon Dioxide 22 mmol/L (21-32) 11/12/22 22:50 Anion Gap 11 (3-11) 11/12/22 22:50 BUN 13 mg/dl (6-23) 11/12/22 22:50 Creatinine 1.16 mg/dl (0.6-1.4) 11/12/22 22:50 Est Cr Clr Drug Dosing 68.6 ml/min 11/12/22 22:50 Est GFR ( Amer) 75.1 ml/min 11/12/22 22:50 Est GFR (Non-Af Amer) 64.8 ml/min 11/12/22 22:50 BUN/Creatinine Ratio 11.2 (10-20) 11/12/22 22:50 Glucose 107 mg/dl (70-99(Fasting)) H 11/12/22 22:50 Lactate 1.1 mmol/L (0.4-2.0) 11/12/22 23:15 Calcium 8.7 mg/dl (8.5-10.1) 11/12/22 22:50 Magnesium 1.8 mg/dl (1.7-2.4) 11/12/22 22:50 Total Bilirubin 0.6 mg/dl (0.2-1.0) 11/12/22 22:50 Direct Bilirubin 0.1 mg/dl (0-0.2) 11/12/22 22:50 AST 40 U/L (13-39) H 11/12/22 22:50 ALT 41 U/L (7-52) 11/12/22 22:50 Alkaline Phosphatase 91 U/L (34-104) 11/12/22 22:50 Troponin I High Sens 16.3 pg/ml (0-20) 11/12/22 22:50 Total Protein 7.5 gm/dl (6.0-8.3) 11/12/22 22:50 Albumin 4.2 gm/dl (3.4-5.0) 11/12/22 22:50 Procalcitonin 0.07 ng/ml (0-0.5) 11/12/22 22:50 Urine Color Dark Yellow 11/12/22 22:50 Urine Appearance Clear (Clear) 11/12/22 22:50 Urine pH 6.0 (4.5-7.5) 11/12/22 22:50 Ur Specific [place] 1.023 (1.000-1.030) 11/12/22 22:50 Urine Protein 3+ (Negative) H 11/12/22 22:50 Urine Glucose (UA) 3+ (Negative) H 11/12/22 22:50 Urine Ketones Negative (Negative) 11/12/22 22:50 Urine Blood 2+ (Negative) H 11/12/22 22:50 Urine Nitrite Negative (Negative) 11/12/22 22:50 Urine Bilirubin Negative (Negative) 11/12/22 22:50 Urine Urobilinogen Negative (Negative) 11/12/22 22:50 Ur Leukocyte Esterase Negative (Negative) 11/12/22 22:50 Urine WBC (Auto) 1-5 /hpf (0-5) 11/12/22 22:50 Urine RBC (Auto) 5-10 /hpf (0-4) H 11/12/22 22:50 U Hyaline Cast (Auto) 1-5 /lpf (0-5) 11/12/22 22:50 U Epithel Cells (Auto) 10-20 /lpf (0-5) H 11/12/22 22:50 Urine Bacteria (Auto) Negative (Negative) 11/12/22 22:50 SARS-CoV-2 (PCR) NEGATIVE (Negative) 11/12/22 22:50 Influenza Type A (PCR) Positive (Neg) A* 11/12/22 22:50 Influenza Type B (PCR) Negative (Neg) 11/12/22 22:50 RSV (RT-PCR) Negative (Neg) 11/12/22 22:[address] chest initial read: [facility] There is poor opacification of the pulmonaryarterial tree, no large pulmonaryarterial filling defect is seen. There is bibasilar atelectasis and linear atelectasiswithin the right middle lobe. No dense consolidation, effusion, or pneumothorax. There are coronaryvascular calcifications. EKG as per my interpretation :Rate 110, sinus tachycardia, normal axis, diffuse T wave flattening
[2022-11-13] MEDS: MAGNESIUM SULFATE / D5W 1 GM/100 ML BAG IV SCH ×2 (03:13→05:34)
[2022-11-13] MEDS ORDERED: LACTATED RINGER'S 1,000 ML IV STA (03:17)
[2022-11-13] MEDS ORDERED: DEXTROSE 50% 50 ML SYRINGE IV PRN (05:29)
[2022-11-13] MEDS ORDERED: GLUCAGON FOR INJ 1 MG VIAL SQ PRN (05:29)
[2022-11-13] MEDS ORDERED: PROMETHAZINE HCL 12.5 MG in SODIUM CHLORIDE 0.9% 50 ML IV PRN (05:29)
[2022-11-13] MEDS ORDERED: CARBOHYDRATES FOR HYPOGLYCEMIA PO PRN (05:29)
[2022-11-13] MEDS ORDERED: oxyCODONE HCL IR 5 MG TAB (IMMEDIATE RELEASE) PO PRN (05:29)
[2022-11-13] MEDS ORDERED: GLUCOSE 10 TAB/TUBE PO PRN (05:29)
[2022-11-13] MEDS ORDERED: GLUCOSE 40% GEL 15 GM TUBE PO PRN (05:29)
[2022-11-13] MEDS ORDERED: BENZONATATE 100 MG CAPSULE PO PRN (05:29)
[2022-11-13] MEDS ORDERED: ARTIFICIAL TEARS OP PRN (06:30)
[2022-11-13] MEDS ORDERED: NON-FORMULARY MEDICATION (Omeprazole 20 mg Capsule,Delayed Release(Dr/Ec)) PO SCH (06:30)
[2022-11-13 06:57] LABS: Hematocrit (blood only) 34.9 % (40.1-51.0); Hemoglobin 11.1 g/dl (14.0-18.0); Mean Corpuscular Hgb Conc 31.8 g/dL (32.0-36.0); Mean Corpuscular Volume 78.6 fL (80.0-100.0); Mean Platelet Volume 10.9 fL (9.4-12.4); Platelet Count 180 K/uL (130-400); RDW Standard Deviation 46.1 fL (36.4-46.3); Red Blood Count 4.44 M/uL (4.63-6.08)
[2022-11-13 07:00] LABS: Allen Test POS (Pos); Base Excess ABG -4.1 mEq/L (-9-1.8); HCO3 ABG 20 mmol/L (19-24); Oxygen Saturation ABG 97.3 % (90-95); PCO2 ABG 33 mmHg (35-46); PO2 ABG 77 mmHg (80-95); pH ABG 7.39 (7.35-7.45)
[2022-11-13 07:08] LABS: Estimated Average Glucose 140 mg/dl; Hemoglobin A1C 6.5 % (4.5-5.6)
[2022-11-13] MEDS: LEVALBUTEROL 1.25MG/0.5ML NEB INH SCH ×4 (07:12→19:14)
[2022-11-13] MEDS: IPRATROPIUM BROMIDE NEB SOLN 0.02% 2.5 ML VIAL INH SCH ×4 (07:12→19:13)
[2022-11-13 07:21] LABS: Echinocytes 1+; Immature Granulocytes # (auto) 0.02 K/uL (0.00-0.02); Immature Granulocytes % (auto) 0.3 %; Lymphocytes # (auto) 0.14 K/uL (1.2-3.4); Monocytes # (auto) 0.28 K/uL (0.24-0.82); Monocytes % (auto) 3.9 %; Neutrophils # (auto) 6.66 K/uL (1.4-6.5); Neutrophils % (auto) 93.8 %; Ovalocytes 1+; Toxic Vacuolation 1+
[2022-11-13 07:25] LABS: BUN Creatinine Ratio 10.6 (10-20); Calcium 7.8 mg/dl (8.5-10.1); Creatinine Clr Calc Pharmacy 70.2 ml/min; Est GFR (African American) 77.5 ml/min; Est GFR (Non-African American) 66.9 ml/min; Potassium 4.2 mmol/L (3.5-5.1)
--- NOTE | 2022-11-13 08:08 | CT Scan Report ---
CHEST CTA for PULMONARY ARTERIES CT DOSE: 702.83 mGy.cm HISTORY: Progressive cough. TECHNIQUE: Multiaxial CT images of the chest were performed following the intravenous administration of contrast to evaluate the pulmonary arteries. Maximal intensity projection images were also obtaine d. A dose lowering technique was utilized adhering to the principles of ALARA. COMPARISON STUDY: None. FINDINGS: No pneumothorax. No pleural effusions. The central airways are patent. There are few subtle groundglass nodule seen within the left upper lobe measure up to 4 mm. Additional scattered subpleur al nodules along the major fissures also measure up to 4 mm. The largest is seen on image 168 along t he right major fissure. Linear densities within the right lung base favor subsegmental atelectasis ar e scarring. The central airways are patent. Partially visualized cervical spinal fusion hardware is n oted. No mediastinal or hilar lymphadenopathy. The heart is normal in size. Limited views of the uppe r abdomen demonstrate a normal liver and spleen. Normal adrenal glands. Normal esophagus. No evidence for an aortic dissection. The central pulmonary arteries are patent. The segmental and subsegmental pulmonary arteries are essentially nondiagnostic due to the timing of contrast. IMPRESSION: 1. Suboptimal opacification of the pulmonary arteries due to the timing of contrast. However, no cent ral pulmonary embolus identified. 2. No evidence for an aortic dissection. 3. A few subcentimeter groundglass nodules within the left upper lobe which measure up to 4 mm. This could represent a low-grade pneumonitis. 4. Additional scattered subpleural nodules along the major fissures measure up to 4 mm. These are lik paola benign. Follow-up recommended below. Please refer to below summary of Fleischner criteria recommendations for follow-up of incidental CT n odules (Camron Yoder, Guidelines for management of small pulmonary nodules detected on CT scans: A sta tement from the Fleischner Society, Radiology 237: [phone].) SOLID NODULES Solitary nodule size: <6 mm * Low risk patients: no follow-up needed * high risk patients: optional CT at 12 months Solitary nodule size: 6-8 mm * Low risk patients: follow-up at 6-12 months, then consider further follow-up at 18-24 months * high risk patients: initial follow-up CT at 6-12 months and then at 18-24 months if no change Solitary nodule size: >8 mm * either low or high risk patients - consider follow-up CT at 3 months, and/or CT-PET, and/or biopsy Multiple nodules size: <6 mm * Low risk patients: no routine follow-up * high risk patients: optional CT at 12 months Multiple nodules size: 6-8 mm * Low risk patients: follow-up at 3-6 months, then consider further follow-up at 18-24 months * high risk patients: follow-up at 3-6 months, then at 18-24 months if no change Multiple nodules size: >8 mm * Low risk patients: follow-up at 3-6 months, then consider further follow-up at 18-24 months * high risk patients: follow-up at 3-6 months, then at 18-24 months if no change Note: newly detected indeterminate nodule in persons 35 years of age or older. * Low risk patients: minimal or absent history of smoking and/or other known risk factors * high risk patients: history of smoking or of other known risk factors (e.g. first degree relative with lung cancer, or exposure to asbestos, radon, uranium) * if a nodule up to 8 mm is partly solid or is ground glass further follow-up is required after 24 m onths to exclude possible slow growing adenocarcinoma (HEATHER) SUBSOLID NODULES Solitary pure ground-glass nodule * nodule size <6 mm - no CT follow-up required * nodule size >=6 mm - follow-up CT at 6-12 months, then every 2 years until 5 years Solitary part-solid nodule * nodule size <6 mm - no CT follow-up required * nodule size >=6 mm - follow-up CT at 3-6 months. If unchanged, and solid component remains <6 mm, then annual follow-up for 5 years Multiple subsolid nodules * nodule size <6 mm - follow-up CT at 3-6 months, consider further follow-up at 2 and 4 years if sta ble * nodule size >=6 mm - follow-up CT at 3-6 months, subsequent management based on the most suspiciou s nodule(s) ACT 112: Positive. There are findings on this exam that require communication between the performing entity and the patient following Patient Test Result Information Act ([place] Act 112) guidelines. Electronically signed by: Guille Payan M.D. 11/13/2022 8:06 AM
[2022-11-13] MEDS: MULTIVITAMIN TAB PO SCH (08:14)
[2022-11-13] MEDS: ASPIRIN 81 MG ECTAB PO SCH (08:14)
[2022-11-13] MEDS: guaiFENesin 600 MG TABCR PO SCH ×2 (08:15→20:56)
[2022-11-13] MEDS: GABAPENTIN 300 MG CAP PO SCH (08:15)
[2022-11-13] MEDS: LOSARTAN POTASSIUM 50 MG TAB PO SCH (08:15)
[2022-11-13] MEDS: ENOXAPARIN INJ 40 MG/0.4 ML SYR SQ SCH (08:17)
[2022-11-13] MEDS: FLUTICASONE PROPIONATE NA SPR 16 GM BTL SCH ×2 (08:18→21:01)
[2022-11-13] MEDS: AZELASTINE HCL 0.1% NASAL 200 SPRAYS/27,400 MCG BTL SCH ×2 (08:18→20:57)
[2022-11-13] MEDS: FLUTICASONE FUROATE 200MCG 14 PUFFS/INHALER INH SCH (08:18)
[2022-11-13] MEDS: LANTUS PER UNIT CHARGE SQ SCH (08:39)
[2022-11-13] MEDS: INSULIN ASPART PER UNIT SC SCH ×4 (08:39→21:36)
[2022-11-13] MEDS ORDERED: NON-FORMULARY MEDICATION (Riboflavin (Vitamin B2) 100 mg Tablet) PO SCH (09:00)
[2022-11-13] MEDS ORDERED: LOSARTAN POTASSIUM 50 MG TAB PO SCH (09:00)
[2022-11-13] MEDS ORDERED: XOPENEX/ATROVENT 1.25mg/0.5MG NEB COMBO NEB SCH (09:00)
--- NOTE | 2022-11-13 09:04 | XRay Report ---
XR chest 1V portable HISTORY: sepsis COMPARISON: Chest 10/09/2022. FINDINGS: The lungs are clear. Cardiac silhouette is normal in size. No pleural effusions. No pneumot horax. Mild elevation of the right hemidiaphragm. This remains unchanged. Cervical spinal fusion hard coello is again noted. IMPRESSION: No significant change compared to the prior study. No acute process. ACT 112: Negative or not required by law. Electronically signed by: Guille Payan M.D. 11/13/2022 9:02 AM
[2022-11-13] MEDS: FEXOFENADINE HCL 180 MG TAB PO SCH (11:00)
[2022-11-13] MEDS: ACETAMINOPHEN 325 MG TAB PO PRN ×2 (11:53→21:09)
[2022-11-13] MEDS ORDERED: RIZATRIPTAN BENZOATE 10 MG TAB PO ONE ×2 (12:06→12:18)
[2022-11-13] MEDS ORDERED: PANTOprazole 40 MG TAB PO SCH (12:30)
[2022-11-13] MEDS: cycloSPORINE (RESTASIS) OPB SCH (13:36)
[2022-11-13] MEDS: OSELTAMIVIR PHOSPHATE 75 MG CAP PO SCH (20:59)
[2022-11-13] MEDS ORDERED: NORTRIPTYLINE HCL 10 MG CAP PO SCH (21:00)
[2022-11-13] MEDS ORDERED: MAGNESIUM OXIDE 400 MG TAB PO SCH (21:00)
[2022-11-13] MEDS ORDERED: ATORVASTATIN 40 MG TAB PO SCH (21:00)
[2022-11-13] MEDS ORDERED: ARTIFICIAL TEARS OP OINT 3.5 GM TUBE OP SCH (21:00)
[2022-11-13] MEDS ORDERED: GABAPENTIN 600 MG TAB PO SCH (21:35)
[2022-11-13] MEDS ORDERED: COUGH DROP (SUGAR FREE) LOZ 24 LOZ/1 BOX BUCCAL STA (23:21)
--- NOTE | 2022-11-13 23:58 | Communication Note ---
Date of Service: November 13, 2022 Pt was seen and examined. Sitting at the edge of the bed with partner at bedside. Pt said that his cough his much better and his breathing improved. He is asking to go home today. He spike a fever in the middle of the night. Denies any chest pain, palpitation, dizziness and SOB. CTA chest showed no central pulmonary embolus identified. No evidence for an aortic dissection . A few subcentimeter groundglass nodules within the left upper lobe which measure up to 4 mm. Additional scattered subpleural nodules along the major fissures measure up to 4 mm. Testing positive for Influenza A on admission. Blood cx pending. Continue Tamiflu, guaifenesin and neb treatment. Continue incentive spirometry and flutter valve. Continue monitor closely. MD Mane
[2022-11-14] MEDS ORDERED: MELATONIN 3 MG TAB PO PRN ×2 (01:28→01:29)
[2022-11-14] MEDS: cycloSPORINE (RESTASIS) OPB SCH ×2 (01:52→07:40)
[2022-11-14] MEDS ORDERED: OMEPRAZOLE 20 MG PO SCH (06:30)
--- NOTE | 2022-11-14 06:55 | Electrocardiogram Report ---
Test Reason : Blood Pressure : / mmHG Vent. Rate : 106 BPM Atrial Rate : 106 BPM P-R Int : 160 ms QRS Dur : 078 ms QT Int : 304 ms P-R-T Axes : 023 038 043 degrees QTc Int : 403 ms Poor data quality, interpretation may be adversely affected Sinus tachycardia Possible Inferior infarct , age undetermined Nonspecific ST and T wave abnormality Abnormal ECG When compared with ECG of 05-JUL-2020 18:33, Vent. rate has increased BY 48 BPM T wave inversion no longer evident in Anterior leads Confirmed by Jarrett Durán ([id number]) on 11/14/2022 6:54:56 AM Referred By: REFERRED SELF Confirmed By:Jarrett Durán
[2022-11-14] MEDS: LEVALBUTEROL 1.25MG/0.5ML NEB INH SCH (07:28)
[2022-11-14] MEDS: IPRATROPIUM BROMIDE NEB SOLN 0.02% 2.5 ML VIAL INH SCH (07:28)
[2022-11-14] MEDS: FEXOFENADINE HCL 180 MG TAB PO SCH (07:41)
[2022-11-14] MEDS: GABAPENTIN 300 MG CAP PO SCH (07:41)
[2022-11-14] MEDS: MULTIVITAMIN TAB PO SCH (07:41)
[2022-11-14] MEDS: guaiFENesin 600 MG TABCR PO SCH (07:41)
[2022-11-14] MEDS: ASPIRIN 81 MG ECTAB PO SCH (07:41)
[2022-11-14] MEDS: OSELTAMIVIR PHOSPHATE 75 MG CAP PO SCH (07:42)
[2022-11-14] MEDS: LOSARTAN POTASSIUM 50 MG TAB PO SCH (07:42)
[2022-11-14] MEDS: FLUTICASONE PROPIONATE NA SPR 16 GM BTL SCH (07:43)
[2022-11-14] MEDS: ENOXAPARIN INJ 40 MG/0.4 ML SYR SQ SCH (07:43)
[2022-11-14] MEDS: FLUTICASONE FUROATE 200MCG 14 PUFFS/INHALER INH SCH (07:44)
[2022-11-14] MEDS: AZELASTINE HCL 0.1% NASAL 200 SPRAYS/27,400 MCG BTL SCH (07:44)
[2022-11-14] MEDS: INSULIN ASPART PER UNIT SC SCH ×2 (08:35→12:53)
[2022-11-14] MEDS: LANTUS PER UNIT CHARGE SQ SCH (08:35)
[2022-11-14] MEDS ORDERED: LEVALBUTEROL 1.25MG/0.5ML NEB INH PRN (09:41)
[2022-11-14] MEDS ORDERED: IPRATROPIUM BROMIDE NEB SOLN 0.02% 2.5 ML VIAL INH PRN (09:41)
--- NOTE | 2022-11-14 13:00 | Discharge Summary ---
Date of Service November 14, 2022 Admission HPI Per Admitting Provider History obtained from patient. 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 Last [facility] confinement 2018 for chest pain with troponin elevation. Nonobstructive CAD on cardiac cath. Patient seen at [facility] ER last month for bronchitis symptoms. Inhalers later added to regimen by PCP. Improved bronchitis symptoms that patient discontinued inhalers on his own a few weeks ago. Patient confined at [facility] last week for biopsy and cryoablation of left renal cyst. Pathology pending. Patient noted worsening dry cough symptoms the last few days. Chest pain from coughing with some shortness of breath. No headache, no belly pain. Fair appetite. Patient not sure about sick contacts given recent hospital confinement. Patient has received seasonal flu vaccine for the year. Has not received COVID- 19 vaccination. Patient brought to ER for evaluation by worsening symptoms. O2 sats 80s at the ER at 1 point. Decadron, neb treatment, Tamiflu administered at the ER. Medical Historyas above Surgical History : Orthopedic procedures, renal cyst cryoablation Family History : Heart disease, brain tumor Personal/Social history : Non-smoker, occasional EtOH intake, retired [employer] service Discharge Data Allergies Allergy/AdvReac Type Severity Reaction Status Date / Time cephalexin [From Keflex] Allergy Unknown 30 YRS Verified 08/31/22 10:45 AGO-UNKNOWN dexamethasone Allergy Unknown Unverified 08/31/22 10:45 nifedipine Allergy NUMBNESS Verified 08/31/22 10:45 IN FACE topiramate Allergy Unknown Unverified 08/31/22 10:45 NSAIDS (Non-Steroidal AdvReac Unknown TO AVOID Verified 08/31/22 10:45 Anti-Inflamma DUE TO KIDNEY FUNCTION Consultations 11/13/22 02:23 ED Decision to Admit Stat Ordered Studies 11/12/22 23:59 CT angio chest PE protocol Urgent Discharge Plan Discharge Items Reason For Visit: RESPIRATORY FAILURE Follow-up/Referrals: Star Chin MD [Primary Care Provider] - Medications and DC Order Prescriptions: No Action Jardiance 10 mg tablet 10 mg PO DAILY cyclosporine [Restasis] 0.05 % dropperette 1 drp ophthalmic (eye) Q12H glucosamine sulfate 2KCl [Glucosamine Relief] 1,000 mg tablet 4,500 mg PO QAM Rx Instructions: administer with meals alpha lipoic acid 600 mg capsule 600 mg PO DAILY lidocaine 5 % adhesive patch,medicated 1 patch topical DAILY PRN (Reason: Pain) Rx Instructions: leave on most painful area for up to 12 hrs fluoride (sodium) 1.1 % gel 1 applic dental QPM Lubrifresh PM 83-15 % ointment 1 applic ophthalmic (eye) HS atorvastatin 80 mg Tablet 40 mg PO HS acetaminophen [Tylenol] 325 mg Tablet 975 mg PO BID fexofenadine 180 mg Tablet 180 mg PO DAILY aspirin [Artur Low Dose Aspirin] 81 mg Tablet,Delayed Release (Dr/Ec) 81 mg PO DAILY carboxymethylcellulose sodium 0.5 % Drops 1 drp OPB USEASDIRECTD PRN (Reason: Dry Eye(S)) gabapentin 300 mg Capsule See Rx Instructions .ROUTE .COMPLEX Rx Instructions: take 1 tab 300mg orally in the morning,take 4 tabs 1200mg orally at night magnesium oxide 420 mg Tablet 420 mg PO HS riboflavin (vitamin B2) 100 mg Tablet 400 mg PO QAM omeprazole 20 mg Capsule,Delayed Release(Dr/Ec) 20 mg PO DAILYBB albuterol sulfate 90 mcg/actuation Hfa Aerosol Inhaler 2 inh INHALATION Q4H PRN (Reason: Shortness Of Breath) fluticasone propionate 50 mcg/actuation Adrian,Suspension 2 spray INTRANASAL BID losartan 100 mg tablet 100 mg PO QAM Multivitamin-Minerals Tablet 1 tab PO DAILY nortriptyline 10 mg Capsule 20 mg PO HS azelastine 137 mcg (0.1 %) Aerosol,Adrian 2 spray INTRANASAL BID Rx Instructions: administer into each nostril omega 1-zwo-raj-fish oil [Fish Oil] 1,200 (144-216) mg Capsule 2 cap PO AMPM Eucerin Cream 1 applic TOPICAL BID fluoride (sodium) [Clinpro 5000] 1.1 % Paste 1 applic DENTAL DAILY Asmanex HFA 50 mcg/actuation Hfa Aerosol Inhaler 50 mcg INHALATION AMPM Krames/Other Patient Handouts: Managing Type 2 Diabetes Admission Data Admit Date/Time: 11/13/22 03:05 Attending Provider: Reyna Gilliam Admit Provider: Dragan Beasley Primary Care Provider: Star Chin Other Providers: Dragan Beasley ; [facility]
== END 2022-11-14 14:01 | disposition home or self-care (01) | DRG 189 ==
LOC: ED 22:14 → 2W 11-13 03:05

== ENCOUNTER 2025-08-13 00:04 | Observation (INO) ==
[2025-08-13 00:40] LABS: Hematocrit (blood only) 41.6 % (42.0-52.0); Hemoglobin 13.5 g/dl (14.0-18.0); Immature Granulocytes # (auto) 0.01 K/uL (0.01-0.20); Immature Granulocytes % (auto) 0.2 %; Mean Corpuscular Hemoglobin 27.8 pg (25.0-34.0); Mean Corpuscular Volume 85.8 fL (80.0-100.0); Platelet Count 147 K/uL (130-400); RDW Standard Deviation 46.0 fL (36.4-46.3); Red Blood Count 4.85 M/uL (4.70-6.10); White Blood Count 6.13 K/ul (4.8-10.8)
--- NOTE | 2025-08-13 00:46 | Emergency Department Note ---
Impression & Plan Elevated troponin, Acute hypotension admit to the [facility] ED Provider Note NAME: IMMANUEL CRISTOBAL Jr AGE: 70 SEX: Male INFORMANT: Patient ED PROVIDER(S): Yeimi Joyner DO CHIEF COMPLAINT: hypotension PLAN: Disposition: admit to the [facility] MEDICAL DECISION MAKING: This is a 70-year-old male patient with a history of hypertension and cardiomyopathy who presents to the emergency department after having blood pressure reading at home upon standing of 71/45 and dropped as low as 68/43. The patient initially was dizzy when he stood up but following this he sat at his kitchen table and was asymptomatic but continued to get low blood pressure readings. Patient has a history of hypotension for which he was hospitalized earlier this summer. His HCTZ was discontinued and his losartan was decreased. He is scheduled to follow-up with cardiac specialists at [facility] in [place] for further evaluation. laboratory studies revealed no leukocytosis. H&H were stable. Glucose was 171. Creatinine was 1.47 which is baseline for this patient. Troponin was elevated at 28.7. Patient was given a liter bolus of normal saline solution. his blood pressure rebounded nicely. EKG showed T wave inversions in the inferior leads and lateral leads but Patient has had these changes on previous EKGs. I discussed case with the [facility] and they will evaluate for further inpatient care. Care/management discussed with: manager therapy and [facility] Triage Nursing notes: reviewed and agree With them. Vital Signs: reviewed and remarkable for bradycardia Additional History obtained from: patient's is at the bedside Chronic Medical/Social Conditions affecting care: none Prior/ Outside/ External records reviewed: I did review patient's previous inpatient stay from earlier this summer. Differential Diagnosis: dehydration, renal insufficiency, STEMI, NSTEMI, cardiac insufficiency, cardiac dysrhythmia Diagnostics, independently interpreted by me: ECG: sinus bradycardia at a rate of 54 with PACs. Patient has T wave inversion in 2, 3, aVF in the lateral leads. Cardiac Monitoring: sinus bradycardia at a rate of 56 Imaging studies: portable chest x-ray: Cardiomegaly with no obvious other findings PAST MEDICAL HISTORY: See Below, PAST SURGICAL HISTORY: See Below, SOCIAL HISTORY: See Below, HOME MEDICATIONS: see list ALLERGIES: See Below VITALS: See Below PHYSICAL EXAMINATION: HEENT: Head - normocephalic and atraumatic. Pupils are equal, round, and reactive to light. Extraocular eye muscles are intact, and sclera are anicteric. Nose - moist nasal mucosa without discharge. Mouth - moist buccal mucosa. Oropharynx is nonerythematous and there is no tonsillar exudate or edema noted. Neck: Supple; no JVD, nuchal rigidity, cervical lymphadenopathy, or auscultated bruits. Heart: Bradycardic rate and regular rhythm. There is a normal S1 and S2 with no murmurs, clicks, or gallops appreciated. Lungs: Clear to auscultation bilaterally with no wheezes, rales, or rhonchi. Abdomen: Soft, completely nontender, nondistended, with good bowel sounds. There are no palpable pulsatile masses or hepatosplenomegaly. There is no guarding, rigidity, or rebound noted. Extremities: No evidence of cyanosis, clubbing, or edema. There are easily palpable peripheral pulses. Skin: warm and dry with good turgor and no rashes. Emergency department treatment: traffic monitor specialist, IV normal saline bolus emergency department course: The patient was evaluated in room A-9-A. Complete history and physical was performed. Previous electronic medical records were reviewed. An order was placed for continuous cardiac monitoring. The patient was in a sinus bradycardia at a rate of 56. Twelve-lead EKG was obtained. Patient was slightly hypotensive upon arrival and was bolused with IV normal saline solution. The patient remained asymptomatic but had an elevated troponin. [facility]. Past Med/Surg History Problem List (Updated 08/14/25 @ 00:06 by Yeimi Joyner DO) Acute hypotension (Acute) Elevated troponin (Acute) SVT (supraventricular tachycardia) Apical variant hypertrophic cardiomyopathy Transient hypotension Multiple pulmonary nodules determined by computed tomography of lung BENEDICTO (obstructive sleep apnea) Morbid obesity due to excess calories Acquired elevated hemidiaphragm Subacromial impingement of left shoulder Osteoarthritis of left acromioclavicular joint Rotator cuff tear, left Small intestinal bacterial overgrowth (SIBO) Internal hemorrhoids MENDOZA (nonalcoholic steatohepatitis) LVH (left ventricular hypertrophy) due to hypertensive disease Atherogenic dyslipidemia Benign essential hypertension Chronic cough Moderate persistent asthma Chronic rhinitis Elevated fecal calprotectin Colon polyps Chronic diarrhea Hx of decompressive lumbar laminectomy (Acute) Urinary retention Cyst of left kidney Migraine headache without aura Encounter for pre-operative examination GERD (gastroesophageal reflux disease) Medical History GERD (gastroesophageal reflux disease) History of COVID-19 (2022) "Resolved" History of skin cancer Removed from arm History of kidney cancer (2021) Cancerous nodule removed from kidney No chemo or radiation Asthma "Well controlled" No inhaler use x years Chronic cough Pre-diabetes Taking Jardiance for neuropathy per patient Hx of colonic polyp Chronic rhinitis Benign essential hypertension Atherogenic dyslipidemia LVH (left ventricular hypertrophy) due to hypertensive disease Follows with [facility] cardio MENDOZA (nonalcoholic steatohepatitis) Hx of migraines Neuropathy B/L feet Sciatica Receives quarterly injections Degenerative disc disease Cervical region, b/l hand/finger numbness History of solitary pulmonary nodule Under surveillance Sleep apnea CPAP (compliant) Hyperlipidemia Surgical History History of esophagogastroduodenoscopy (EGD) 09/2024, [facility] Hx of colonoscopy with polypectomy Hx of cardiac catheterization (07/14/24) No stents History of lumbar fusion (2021) L4-S1 Hx of neck surgery (2020) C3-7 fusion History of repair of rotator cuff S/P Botox injection R/t migraines History of eye surgery PRK B/L eyes History of tonsillectomy History of cardiac radiofrequency ablation 2007 (R/t SVT) Family History Grandmother (Maternal) Family history of diabetes mellitus Father Family history of diabetes mellitus Brother Family history of diabetes mellitus Social History Smoking Status: Never smoker Second Hand Exposure: No; Do You Dip or Chew Tobacco: No; Hx Alcohol Use: No Hx Substance Use: No Preferred Language: Cymraes Communication Ability: Effective Maintenance Shop 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 Required: No Beliefs That Will Affect Care: None Current Living Situation: Spouse Current Living Situation Comment: [facility] Feels Safe at Home: Yes Assistive Devices: CPAP and Glasses Allergies Allergies Allergy/AdvReac Type Severity Reaction Status Date / Time nifedipine Allergy Mild Facial Verified 08/07/25 08:17 numbness cephalexin [From Keflex] Allergy Unknown Unknown Verified 08/07/25 08:17 dexamethasone Allergy Unknown Unknown Verified 08/07/25 08:17 topiramate Allergy Unknown "turned Verified 08/07/25 08:17 left foot outward" ciprofloxacin AdvReac Intermediate Worsened Verified 08/07/25 08:17 neuropathy, pain bromfenac AdvReac Unverified 08/07/25 08:17 NSAIDS (Non-Steroidal AdvReac Unverified 08/07/25 08:17 Anti-Inflamma Home Meds Home Medications Medication Instructions Recorded Confirmed acetaminophen 325 mg tablet 650 mg PO BID 07/05/20 08/13/25 (Tylenol) albuterol sulfate 90 mcg/actuation 1 inh inhalation Q6 PRN Shortness 07/05/20 08/13/25 aerosol inhaler Of Breath aspirin 81 mg tablet,delayed 81 mg PO QAM 07/05/20 08/13/25 release (Artur Low Dose Aspirin) fluticasone propionate 50 2 spray intranasal QAM 07/05/20 08/13/25 mcg/actuation nasal spray,suspension riboflavin (vitamin B2) 100 mg 400 mg PO QAM 07/05/20 08/13/25 tablet alpha lipoic acid 600 mg capsule 600 mg PO QPM 08/31/22 08/13/25 lidocaine 5 % topical patch 1 patch topical DAILY PRN Pain 08/31/22 08/13/25 white petrolatum-mineral oil 83 1 applic ophthalmic (eye) HS 08/31/22 08/13/25 %-15 % eye ointment (Lubrifresh PM) azelastine 137 mcg (0.1 %) nasal 3 spray intranasal QPM 11/13/22 08/13/25 spray capsaicin 0.075 % topical cream 1 applic topical HS Pain 05/18/23 08/13/25 rizatriptan 10 mg tablet 10 mg PO DAILY PRN migraines 05/18/23 08/13/25 tizanidine 4 mg capsule 4 mg PO HS Pain 05/18/23 08/13/25 cholecalciferol (vitamin D3) 10 10 mcg PO QAM 05/14/24 08/13/25 mcg (400 unit) capsule psyllium 1 tbsp PO QAM 05/14/24 08/13/25 ciclopirox 8 % topical solution 1 applic topical QAM 06/26/25 08/13/25 ezetimibe 10 mg tablet 5 mg PO QAM 06/26/25 08/13/25 furosemide 20 mg tablet 20 mg PO QAM 06/26/25 08/13/25 methyl salicylate 30 %-menthol 10 1 applic topical TID PRN Muscle 06/26/25 08/13/25 % topical cream (Cold and Hot Pain (m.salicylate-menthol)) atorvastatin 40 mg tablet 40 mg PO HS 06/29/25 08/13/25 fexofenadine 180 mg tablet 180 mg PO QAM allergies 06/29/25 08/13/25 metoprolol succinate 25 mg 12.5 mg PO QAM 06/29/25 08/13/25 tablet,extended release 24 hr doxycycline hyclate 100 mg capsule 100 mg PO DAILY 07/10/25 08/13/25 fluorometholone acetate 0.1 % eye 1 drp ophthalmic (eye) QID 07/10/25 08/13/25 drops,suspension diclofenac sodium 1 % topical gel 4 g topical QID 07/29/25 08/13/25 empagliflozin 25 mg tablet 25 mg PO QAM 07/29/25 08/13/25 (Jardiance) lanolin alcohols-mineral 1 applic topical QPM 07/29/25 08/13/25 oil-w.petrolatum-ceresin topical cream (Eucerin topical cream) montelukast 10 mg tablet 10 mg PO QAM 07/29/25 08/13/25 triamcinolone acetonide 0.5 % 1 applic topical DAILY 07/29/25 08/13/25 topical cream pregabalin 50 mg capsule 100 mg PO QAM 08/07/25 08/13/25 cyclosporine 0.05 % eye drops in a 1 drp ophthalmic (eye) Q12H 08/13/25 08/13/25 dropperette (Restasis) fish oil-fat acid comb8-herb 2 cap PO AMPM 08/13/25 08/13/25 [id number] 1,200 mg (400 [id number]) cap fluoride (sodium) 1.1 % dental gel 1 applic dental QPM 08/13/25 08/13/25 (PreviDent) ipratropium bromide 21 mcg (0.03 2 spray intranasal QAM 08/13/25 08/13/25 %) nasal spray losartan 100 mg tablet 50 mg PO QPM 08/13/25 08/13/25 multivitamin with minerals 1 cap PO QAM 08/13/25 08/13/25 omeprazole 20 mg capsule,delayed 20 mg PO HS 08/13/25 08/13/25 release omeprazole 40 mg capsule,delayed 40 mg PO DAILYBB 08/13/25 08/13/25 release pregabalin 50 mg capsule 150 mg PO QPM 08/13/25 08/13/25 Results & Data (ED) Vital Signs Vital Signs - 24 hr 08/13/25 00:06 08/13/25 00:34 08/13/25 00:34 Temperature 36.3 C L Temperature Source Temporal Artery Scan Pulse Rate - Lying 54 L Pulse Rate - Sitting 53 L Pulse Rate - Standing 56 L Pulse Rate 53 L Pulse Rate [Apical] Respiratory Rate 16 Respiratory Effort / Characteristics Non-Labored Respiratory Depth Normal Blood Pressure - Lying 100/58 L Blood Pressure - Sitting 99/58 L Blood Pressure- Standing 98/62 L Blood Pressure 101/60 Blood Pressure [Right Arm] Blood Pressure Mean 73 Blood Pressure Mean [Right Arm] Blood Pressure Position Sitting Pulse Oximetry 94 Oxygen Delivery Method Room Air Sepsis Recent Fever Within 48 Hours No Sepsis New/Unexplained Change in Mental Status No Sepsis Action Taken by Nursing No Action Required 08/13/25 01:18 08/13/25 01:39 08/13/25 01:40 Temperature Temperature Source Pulse Rate - Lying Pulse Rate - Sitting Pulse Rate - Standing Pulse Rate 52 L Pulse Rate [Apical] 53 L Respiratory Rate 16 Respiratory Effort / Characteristics Respiratory Depth Blood Pressure - Lying Blood Pressure - Sitting Blood Pressure- Standing Blood Pressure Blood Pressure [Right Arm] 126/73 Blood Pressure Mean Blood Pressure Mean [Right Arm] 90 Blood Pressure Position Pulse Oximetry 92 92 Oxygen Delivery Method Room Air Room Air Sepsis Recent Fever Within 48 Hours Sepsis New/Unexplained Change in Mental Status Sepsis Action Taken by Nursing 08/13/25 03:00 Temperature Temperature Source Pulse Rate - Lying Pulse Rate - Sitting Pulse Rate - Standing Pulse Rate Pulse Rate [Apical] 53 L Respiratory Rate 18 Respiratory Effort / Characteristics Respiratory Depth Blood Pressure - Lying Blood Pressure - Sitting Blood Pressure- Standing Blood Pressure Blood Pressure [Right Arm] 108/67 Blood Pressure Mean Blood Pressure Mean [Right Arm] 80 Blood Pressure Position Pulse Oximetry 95 Oxygen Delivery Method Room Air Sepsis Recent Fever Within 48 Hours Sepsis New/Unexplained Change in Mental Status Sepsis Action Taken by Nursing Laboratory Data 08/13/25 00:20 08/13/25 04:21 Lab Results 08/13/25 Range/Units 00:20 WBC 6.13 (4.8-10.8) K/ul RBC 4.85 (4.70-6.10) M/uL Hgb 13.5 L (14.0-18.0) g/dl Hct 41.6 L (42.0-52.0) % MCV 85.8 (80.0-100.0) fL MCH 27.8 (25.0-34.0) pg MCHC 32.5 (32.0-36.0) g/dL RDW Std Deviation 46.0 (36.4-46.3) fL RDW Coeff of Hemanth 14.7 H (11.5-14.5) % Plt Count 147 (130-400) K/uL MPV 12.0 (9.4-12.4) fL Immature Gran % (Auto) 0.2 % Neut % (Auto) 50.9 % Lymph % (Auto) 33.3 % Randolph % (Auto) 11.9 % Eos % (Auto) 3.4 % Baso % (Auto) 0.3 % Neut # (Auto) 3.12 (1.40-6.50) K/uL Lymph # (Auto) 2.04 (1.20-3.40) K/uL Randolph # (Auto) 0.73 H (0.11-0.59) K/uL Eos # (Auto) 0.21 (0.00-0.50) K/uL Baso # (Auto) 0.02 (0.00-0.20) K/uL Immature Gran # (Auto) 0.01 (0.01-0.20) K/uL Sodium 138 (136-145) mmol/L Potassium 3.5 (3.5-5.1) mmol/L Chloride 106 (98-107) mmol/L Carbon Dioxide 26 (21-32) mmol/L Anion Gap 6 (3-11) BUN 19 (6-23) mg/dl Creatinine 1.47 H (0.6-1.4) mg/dl Est Cr Clr Drug Dosing 52.8 ml/min eGFR 51.00 BUN/Creatinine Ratio 12.9 (10-20) Glucose 171 H (70-99(Fasting)) mg/dl Calcium 8.8 (8.6-10.3) mg/dl Total Bilirubin 0.9 (0.2-1.0) mg/dl AST 51 H (13-39) U/L ALT 51 (7-52) U/L Alkaline Phosphatase 86 (34-104) U/L Troponin I High Sens 28.7 H (0-20) pg/ml Total Protein 6.5 (6.0-8.3) gm/dl Albumin 4.0 (3.4-5.0) gm/dl Globulin 2.5 (2.5-4.0) gm/dl Albumin/Globulin Ratio 1.6 (0.9-2) TSH 2.450 (0.300-4.500) uIu/ml Lyme Disease Screen Negative (Negative) Administered Medications Discontinued Medications Acetaminophen (Acetaminophen 325 Mg Tab) 650 mg PO ONE ONE Stop: 08/13/25 09:45 Last Admin: 08/13/25 09:49 Dose: 650 mg Documented By: Aspirin (Aspirin 81 Mg Ectab) 81 mg PO [facility] Stop: 09/12/25 08:59 Last Admin: 08/13/25 09:37 Dose: 81 mg Documented By: Diclofenac Sodium (Diclofenac Sod 1% Gel 100 Gm Tube) 4 gm EXT QID [facility]; Protocol Stop: 09/12/25 08:59 Last Admin: 08/13/25 12:38 Dose: Not Given Documented By: Admin: 08/13/25 09:37 Dose: Not Given Documented By: Doxycycline Hyclate (Doxycycline Hyclate 100 Mg Cap) 100 mg PO DAILY [facility] Stop: 08/18/25 08:59 Last Admin: 08/13/25 09:37 Dose: 100 mg Documented By: Ezetimibe (Ezetimibe 10 Mg Tab) 5 mg PO [facility] Stop: 09/12/25 08:59 Last Admin: 08/13/25 09:37 Dose: 5 mg Documented By: Fexofenadine HCl (Fexofenadine Hcl 180 Mg Tab) 180 mg PO [facility] Stop: 09/12/25 08:59 Last Admin: 08/13/25 09:38 Dose: 180 mg Documented By: Fluticasone Propionate (Fluticasone Propionate Na Spr 16 Gm Btl) 2 sprays NA QAM [facility] Stop: 09/12/25 08:59 Last Admin: 08/13/25 09:38 Dose: 2 sprays Documented By: GUILLERMO Heparin Sodium (Porcine) (Heparin Sod 5,000 Unit/0.5 Ml Vial) 5,000 units SQ Q8 YAKOV Stop: 09/12/25 05:59 Last Admin: 08/13/25 06:20 Dose: 5,000 units Documented By: VALERIA Sodium Chloride (Nss) 1,000 mls @ 999 mls/hr IV .Q1H1M ONE Stop: 08/13/25 01:21 Last Infusion: 08/13/25 03:24 Dose: Infused Documented By: Admin: 08/13/25 00:54 Dose: 999 mls/hr Documented By: SHANA Insulin Aspart (Insulin Aspart Per Unit Charge) 0 units SC ACHS YAKOV Stop: 09/12/25 05:01 Last Admin: 08/13/25 11:39 Dose: Not Given Documented By: Admin: 08/13/25 09:13 Dose: Not Given Documented By: Admin: 08/13/25 05:07 Dose: Not Given Documented By: VALERIA Co-signed By: YVROSE Ipratropium Debord (Ipratropium Debord Nasal Dennis 0.03% 30 Ml) 2 sprays NA [facility] Stop: 09/12/25 08:59 Last Admin: 08/13/25 09:38 Dose: 2 sprays Documented By: GUILLERMO Miscellaneous (Fluorometholone Acetate 0.1 % Drops,Suspension)~Order Awaiting Action) 1 each N/A QS [facility] Stop: 09/12/25 07:59 Last Admin: 08/13/25 09:14 Dose: Not Given Documented By: GUILLERMO Montelukast Sodium (Montelukast Sodium 10 Mg Tablet) 10 mg PO [facility] Stop: 09/12/25 08:59 Last Admin: 08/13/25 09:38 Dose: 10 mg Documented By: GUILLERMO Multivitamins/Minerals (Cerovite Adv Formula Tab) 1 tab PO [facility] Stop: 09/12/25 08:59 Last Admin: 08/13/25 09:38 Dose: 1 tab Documented By: GUILLERMO Pantoprazole Sodium (Pantoprazole 40 Mg Tab) 40 mg PO BID YAKOV Stop: 09/12/25 08:59 Last Admin: 08/13/25 09:38 Dose: 40 mg Documented By: Pregabalin (Pregabalin 100 Mg Cap) [facility] Stop: 09/12/25 08:59 Last Admin: 08/13/25 09:39 Dose: 100 mg Documented By: Psyllium Hydrophilic Mucilloid (Psyllium Husk 4gm Packet) 4 gm [facility] [place] Stop: 09/12/25 08:59 Last Admin: 08/13/25 09:39 Dose: 4 gm Documented By: Vitamin D (Cholecalciferol 10 Mcg (400 Units) Tab) 10 mcg PO QAM [facility] Stop: 09/12/25 08:59 Last Admin: 08/13/25 09:37 Dose: 10 mcg Documented By: Discharge Plan Visit Data Chief Complaint: Hypotension Stated Complaint: LOW BP ED Provider: Yeimi Joyner Discharge Problem: Elevated troponin, Acute hypotension Patient Disposition: Admitted As Inpatient Condition: Serious Discharge Instructions Interventions: ED Discharge Assessment Last Done: 08/13/25 04:32
[2025-08-13] MEDS: SODIUM CHLORIDE 0.9% 1,000 ML IV ONE (00:54)
[2025-08-13 00:59] LABS: Alanine Aminotransferase 51.0 U/L (7-52); Albumin Globulin Ratio 1.6 (0.9-2); Alkaline Phosphatase 86.0 U/L (34-104); Anion Gap 6.0 (3-11); Bilirubin,Total 0.9 mg/dl (0.2-1.0); Blood Urea Nitrogen 19.0 mg/dl (6-23); Calcium 8.8 mg/dl (8.6-10.3); Carbon Dioxide 26.0 mmol/L (21-32); Chloride 106.0 mmol/L (98-107); Creatinine Clr Calc Pharmacy 52.8 ml/min; Globulin 2.5 gm/dl (2.5-4.0); Glucose 171.0 mg/dl (70-99(Fasting)); Potassium 3.5 mmol/L (3.5-5.1); Sodium 138.0 mmol/L (136-145); Total Protein 6.5 gm/dl (6.0-8.3)
[2025-08-13 01:14] LABS: Thyroid Stimulating Hormone 2.45 uIu/ml (0.300-4.500)
--- NOTE | 2025-08-13 02:04 | XRay Report ---
EXAM: XR chest 1V portable CLINICAL HISTORY: Weakness. TECHNIQUE: An X-ray image of the chest is obtained in AP projection. COMPARISON: 06/29/2025 X-ray. FINDINGS: Pulmonary Parenchyma: Mildly elevated right hemidiaphragm (No interval changes). No focal consolidation, pneumothorax, or significant lung opacities identified. No evidence of pleural effusion or pleural thickening. Mild vascular congestion (No interval changes). Heart and Mediastinum: Mildly increased cardiac shadow. (No interval changes). No mediastinal widening or masses. No hilar or mediastinal lymphadenopathy. Bony Thorax: Bony thorax appears intact without fractures or deformities. Lower cervical spine fixation device. Soft Tissues: Soft tissues overlying the chest wall are unremarkable. IMPRESSION: 1. Mild cardiomegaly with mild vascular congestion (No interval changes). 2. No focal consolidation. 3. Mildly elevated right hemidiaphragm (No interval changes). Electronically signed by Cayden Means 08-13-2025 02:04 AM
--- NOTE | 2025-08-13 03:03 | History & Physical Report ---
Date of Service August 13, 2025 Assessment & Plan (1) Transient hypotension: Plan: Assessment and plan below following discussion of case with ED provider and reviewing patient history/pertinent normal/abnormal diagnostic test results. Recurrent hypotension Rule out orthostasis ? Bradycardia contributory, history 2AVB Mobitz type I as per records Mild CHF History diastolic dysfunction Apical hypertrophic cardiomyopathy as per records Pulmonary congestion on imaging Troponin elevation secondary to CHF in the setting of kidney dysfunction New onset anemia, FOBT done at the ER was negative hx non-obstructive CAD carotid artery disease as per records hyperlipidemia, on statin Rx hx SVT status post ablation bronchial asthma as per records, not in acute exacerbation BENEDICTO on CPAP left RCCA status post cryoablation DM2 on oral medications, reasonable control as of recent hemoglobin A1c of 7.9 last March 2025 OBS Admit to PCU Check orthostatic vitals Hold beta-yajaira for now, atropine as needed symptomatic bradycardia Follow troponin TTE, Cardiology consult RE recurrent hypotension, CHF (Patient known to Dr. Batista of [facility] Strict I/Os, daily weights, CHF education, fluid restriction Baseline UA, monitor creatinine response to fluid bolus administered at the ER Hold losartan and Lasix until kidney function back to baseline Anemia workup ISS BG goal 1 10-1 40, carb count coverage DVT prophylaxis. Heparin subcu Full code Patient requesting updates providers. Pam Pitt, contact #[phone]. Text document was generated using Optimitive voice recognition software. It may contain grammatical or spelling errors. Kindly contact undersigned for clarification of any documentation item in question. History of Present Illness Chief Complaint: Dizziness, low blood pressure Primary Care Provider: Star Christine MD History obtained from patient. Medical history significant for apical hypertrophic cardiomyopathy as per records, non-obstructive CAD, carotid artery disease as per records, hypertension, hyperlipidemia, hx SVT status post ablation, hx 2AVB (Mobitz type I), bronchial asthma as per records, BENEDICTO on CPAP, pulmonary nodules, left RCCA status post cryoablation, DM2 on oral medications, GERD, NAFLD, migraine, ongoin g doxycycline course for eye infection, chronic rhinitis, osteoarthritis. Patient confined at the [facility] in [place], [place] from April 30 to 2024 for hypotension and bradycardia. Patient accompanying for her check up with lung transplant specialist in [place] at time of illness. Patient had abrupt onset dizziness and visual changes which led to ER visit. SBP 60 over 40s, patient bradycardic as per note. Diffuse T wave inversions on EKG. CT head within normal limits. CT PE study negative. Patient initially started on Levophed infusion. Bedside ultrasound without pericardial effusion or acute change in the cardiac function as per note. Low a.m. cortisol although cosyntropin stimulation test was normal. Exercise tolerance test performed with appropriate heart rate response ruling out chronotropic incompetence as per note. Carotid ultrasound showed less than 50% ICA stenosis bilaterally. Patient discharged with MCOT in place for remote monitoring of potential arrhythmias as per discharge note. Hypotension/dizziness attributed to blood pressure regimen. Patient home losartan and HCTZ discontinued on discharge. Patient losartan restarted by [place] PCP at a lower dose on follow-up visit last April 2025. Low-dose Lasix added to regimen because of fluid retention. 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 Outpatient [facility] cardiomyopathy specialist referral contemplated next month. Recent [facility] ER visit last month for chest pain. Patient discharged home after unremarkable workup. Patient was standing up tonight when he felt lightheaded. No chest pain. No unusual cough or SOB symptoms. Some fluid retention. Denies abdominal pain, black/bloody stools, hematuria. Not compliant with salt restriction as per . SBP 60 to 70s at home. Patient brought to ER for evaluation. 1 L fluid bolus administered at the ER. Medical Historyas above Surgical History : Orthopedic procedures, renal cyst cryoablation, back surgery, tonsillectomy Family History : Heart disease, brain tumor Personal/Social history : Non-smoker, occasional EtOH intake, retired [employer] service Allergies Allergy/AdvReac Type Severity Reaction Status Date / Time nifedipine Allergy Mild Facial Verified 08/07/25 08:17 numbness cephalexin [From Keflex] Allergy Unknown Unknown Verified 08/07/25 08:17 dexamethasone Allergy Unknown Unknown Verified 08/07/25 08:17 topiramate Allergy Unknown "turned Verified 08/07/25 08:17 left foot outward" ciprofloxacin AdvReac Intermediate Worsened Verified 08/07/25 08:17 neuropathy, pain bromfenac AdvReac Unverified 08/07/25 08:17 NSAIDS (Non-Steroidal AdvReac Unverified 08/07/25 08:17 Anti-Inflamma Home Medications Medication Instructions Recorded Confirmed Type acetaminophen 325 mg tablet 650 mg PO BID 07/05/20 08/13/25 History (Tylenol) albuterol sulfate 90 mcg/actuation 1 inh inhalation Q6 PRN Shortness 07/05/20 08/13/25 History aerosol inhaler Of Breath aspirin 81 mg tablet,delayed 81 mg PO QAM 07/05/20 08/13/25 History release (Artur Low Dose Aspirin) fluticasone propionate 50 2 spray intranasal QAM 07/05/20 08/13/25 History mcg/actuation nasal spray,suspension riboflavin (vitamin B2) 100 mg 400 mg PO QAM 07/05/20 08/13/25 History tablet alpha lipoic acid 600 mg capsule 600 mg PO QPM 08/31/22 08/13/25 History lidocaine 5 % topical patch 1 patch topical DAILY PRN Pain 08/31/22 08/13/25 History white petrolatum-mineral oil 83 1 applic ophthalmic (eye) HS 08/31/22 08/13/25 History %-15 % [facility] azelastine 137 mcg (0.1 %) nasal 3 spray intranasal QPM 11/13/22 08/13/25 History spray capsaicin 0.075 % topical cream 1 applic topical HS Pain 05/18/23 08/13/25 History rizatriptan 10 mg tablet 10 mg PO DAILY PRN migraines 05/18/23 08/13/25 History tizanidine 4 mg capsule 4 mg PO HS Pain 05/18/23 08/13/25 History cholecalciferol (vitamin D3) 10 10 mcg PO QAM 05/14/24 08/13/25 History mcg (400 unit) capsule psyllium 1 tbsp PO QAM 05/14/24 08/13/25 History ciclopirox 8 % topical solution 1 applic topical QAM 06/26/25 08/13/25 History ezetimibe 10 mg tablet 5 mg PO QAM 06/26/25 08/13/25 History furosemide 20 mg tablet 20 mg PO QAM 06/26/25 08/13/25 History methyl salicylate 30 %-menthol 10 1 applic topical TID PRN Muscle 06/26/25 08/13/25 History % topical cream (Cold and Hot Pain (m.salicylate-menthol)) atorvastatin 40 mg tablet 40 mg PO HS 06/29/25 08/13/25 History fexofenadine 180 mg tablet 180 mg PO QAM allergies 06/29/25 08/13/25 History metoprolol succinate 25 mg 12.5 mg PO QAM 06/29/25 08/13/25 History tablet,extended release 24 hr doxycycline hyclate 100 mg capsule 100 mg PO DAILY 07/10/25 08/13/25 History fluorometholone acetate 0.1 % eye 1 drp ophthalmic (eye) QID 07/10/25 08/13/25 History drops,suspension diclofenac sodium 1 % topical gel 4 g topical QID 07/29/25 08/13/25 History empagliflozin 25 mg tablet 25 mg PO QAM 07/29/25 08/13/25 History (Jardiance) lanolin alcohols-mineral 1 applic topical QPM 07/29/25 08/13/25 History oil-w.petrolatum-ceresin topical cream (Eucerin topical cream) montelukast 10 mg tablet 10 mg PO QAM 07/29/25 08/13/25 History triamcinolone acetonide 0.5 % 1 applic topical DAILY 07/29/25 08/13/25 History topical cream pregabalin 50 mg capsule 100 mg PO QAM 08/07/25 08/13/25 History cyclosporine 0.05 % eye drops in a 1 drp ophthalmic (eye) Q12H 08/13/25 08/13/25 History dropperette (Restasis) fish oil-fat acid comb8-herb 2 cap PO AMPM 08/13/25 08/13/25 History [id number] 1,200 mg ([id number]) cap fluoride (sodium) 1.1 % dental gel 1 applic dental QPM 08/13/25 08/13/25 History (PreviDent) ipratropium bromide 21 mcg (0.03 2 spray intranasal QAM 08/13/25 08/13/25 History %) nasal spray losartan 100 mg tablet 50 mg PO QPM 08/13/25 08/13/25 History multivitamin with minerals 1 cap PO QAM 08/13/25 08/13/25 History omeprazole 20 mg capsule,delayed 20 mg PO HS 08/13/25 08/13/25 History release omeprazole 40 mg capsule,delayed 40 mg PO DAILYBB 08/13/25 08/13/25 History release pregabalin 50 mg capsule 150 mg PO QPM 08/13/25 08/13/25 History Past Med/Surg History Problem List (Updated 08/13/25 @ 05:27 by Dragan Beasley MD) Transient hypotension Multiple pulmonary nodules determined by computed tomography of lung BENEDICTO (obstructive sleep apnea) Morbid obesity due to excess calories Acquired elevated hemidiaphragm Subacromial impingement of left shoulder Osteoarthritis of left acromioclavicular joint Rotator cuff tear, left Small intestinal bacterial overgrowth (SIBO) Internal hemorrhoids MENDOZA (nonalcoholic steatohepatitis) LVH (left ventricular hypertrophy) due to hypertensive disease Atherogenic dyslipidemia Benign essential hypertension Chronic cough Moderate persistent asthma Chronic rhinitis Elevated fecal calprotectin Colon polyps Chronic diarrhea Hx of decompressive lumbar laminectomy (Acute) Urinary retention Cyst of left kidney Migraine headache without aura Encounter for pre-operative examination GERD (gastroesophageal reflux disease) Medical History GERD (gastroesophageal reflux disease) History of COVID-19 (2022) "Resolved" History of skin cancer Removed from arm History of kidney cancer (2021) Cancerous nodule removed from kidney No chemo or radiation Asthma "Well controlled" No inhaler use x years Chronic cough Pre-diabetes Taking Jardiance for neuropathy per patient Hx of colonic polyp Chronic rhinitis Benign essential hypertension Atherogenic dyslipidemia LVH (left ventricular hypertrophy) due to hypertensive disease Follows with [facility] cardio MENDOZA (nonalcoholic steatohepatitis) Hx of migraines Neuropathy B/L feet Sciatica Receives quarterly injections Degenerative disc disease Cervical region, b/l hand/finger numbness History of solitary pulmonary nodule Under surveillance Sleep apnea CPAP (compliant) Hyperlipidemia Surgical History History of esophagogastroduodenoscopy (EGD) 09/2024, [facility] Hx of colonoscopy with polypectomy Hx of cardiac catheterization (07/14/24) No stents History of lumbar fusion (2021) L4-S1 Hx of neck surgery (2020) C3-7 fusion History of repair of rotator cuff S/P Botox injection R/t migraines History of eye surgery PRK B/L eyes History of tonsillectomy History of cardiac radiofrequency ablation 2007 (R/t SVT) Family History Grandmother (Maternal) Family history of diabetes mellitus Father Family history of diabetes mellitus Brother Family history of diabetes mellitus Social History Smoking Status: Never smoker Second Hand Exposure: No; Do You Dip or Chew Tobacco: No; Hx Alcohol Use: No Hx Substance Use: No Preferred Language: Czech Communication Ability: Effective Electric Gas Appliances 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 Required: No Beliefs That Will Affect Care: None Current Living Situation: Spouse Current Living Situation Comment: [facility] Other Information That Helps Us Care for You: No Feels Safe at Home: Yes Safety Concerns: Feels Safe At This Time Assistive Devices: CPAP and Glasses Review of Systems Review of Systems: As per HPI, all other systems reviewed and negative Physical Exam Physical Exam: GENERAL: slightly anxious, obese, no respiratory distress SKIN: Normal color, warm HEENT: [place] palpebral conjunctivae, no ptosis, moist buccal mucosa NECK : Supple, short neck, no tenderness CHEST : Decreased breath sounds, no tenderness HEART : Bradycardic, no obvious murmurs ABDOMEN: Some distention, nontender RECTAL : Intact sphincter, brown stool (FOBT negative) EXTREMITIES : Minimal LE swelling, no LE tenderness, no other gross deformities NEUROLOGIC : Coherent, no facial asymmetry, no other gross focality Results & Data Results & Data Vital Signs (Past 12 Hours) Vital Signs Temp Pulse Pulse Resp BP BP Pulse Ox 08/13/25 01:40 92 08/13/25 01:39 53 L 16 126/73 92 08/13/25 01:18 52 L 08/13/25 00:06 36.3 C L 53 L 16 101/60 94 O2 Del Method 08/13/25 01:40 Room Air 08/13/25 01:39 Room Air 08/13/25 01:18 08/13/25 00:06 Room Air Laboratory Results Laboratory Results WBC 6.13 K/ul (4.8-10.8) 08/13/25 00:20 RBC 4.85 M/uL (4.70-6.10) 08/13/25 00:20 Hgb 13.5 g/dl (14.0-18.0) L 08/13/25 00:20 Hct 41.6 % (42.0-52.0) L 08/13/25 00:20 MCV 85.8 fL (80.0-100.0) 08/13/25 00:20 MCH 27.8 pg (25.0-34.0) 08/13/25 00:20 MCHC 32.5 g/dL (32.0-36.0) 08/13/25 00:20 RDW Std Deviation 46.0 fL (36.4-46.3) 08/13/25 00:20 RDW Coeff of Hemanth 14.7 % (11.5-14.5) H 08/13/25 00:20 Plt Count 147 K/uL (130-400) 08/13/25 00:20 MPV 12.0 fL (9.4-12.4) 08/13/25 00:20 Immature Gran % (Auto) 0.2 % 08/13/25 00:20 Neut % (Auto) 50.9 % 08/13/25 00:20 Lymph % (Auto) 33.3 % 08/13/25 00:20 [place] % (Auto) 11.9 % 08/13/25 00:20 Eos % (Auto) 3.4 % 08/13/25 00:20 Baso % (Auto) 0.3 % 08/13/25 00:20 Neut # (Auto) 3.12 K/uL (1.40-6.50) 08/13/25 00:20 Lymph # (Auto) 2.04 K/uL (1.20-3.40) 08/13/25 00:20 [place] # (Auto) 0.73 K/uL (0.11-0.59) H 08/13/25 00:20 Eos # (Auto) 0.21 K/uL (0.00-0.50) 08/13/25 00:20 Baso # (Auto) 0.02 K/uL (0.00-0.20) 08/13/25 00:20 Immature Gran # (Auto) 0.01 K/uL (0.01-0.20) 08/13/25 00:20 Sodium 138 mmol/L (136-145) 08/13/25 00:20 Potassium 3.5 mmol/L (3.5-5.1) 08/13/25 00:20 Chloride 106 mmol/L (98-107) 08/13/25 00:20 Carbon Dioxide 26 mmol/L (21-32) 08/13/25 00:20 Anion Gap 6 (3-11) 08/13/25 00:20 BUN 19 mg/dl (6-23) 08/13/25 00:20 Creatinine 1.47 mg/dl (0.6-1.4) H 08/13/25 00:20 Est Cr Clr Drug Dosing 52.8 ml/min 08/13/25 00:20 eGFR 51.00 08/13/25 00:20 BUN/Creatinine Ratio 12.9 (10-20) 08/13/25 00:20 Glucose 171 mg/dl (70-99(Fasting)) H 08/13/25 00:20 Calcium 8.8 mg/dl (8.6-10.3) 08/13/25 00:20 Total Bilirubin 0.9 mg/dl (0.2-1.0) 08/13/25 00:20 AST 51 U/L (13-39) H 08/13/25 00:20 ALT 51 U/L (7-52) 08/13/25 00:20 Alkaline Phosphatase 86 U/L (34-104) 08/13/25 00:20 Troponin I High Sens 28.7 pg/ml (0-20) H 08/13/25 00:20 Total Protein 6.5 gm/dl (6.0-8.3) 08/13/25 00:20 Albumin 4.0 gm/dl (3.4-5.0) 08/13/25 00:20 Globulin 2.5 gm/dl (2.5-4.0) 08/13/25 00:20 Albumin/Globulin Ratio 1.6 (0.9-2) 08/13/25 00:20 TSH 2.450 uIu/ml (0.300-4.500) 08/13/25 00:20 Impressions Chest X-Ray 08/13/25 00:21 EXAM: XR chest 1V portable CLINICAL HISTORY: Weakness. TECHNIQUE: An X-ray image of the chest is obtained in AP projection. COMPARISON: 06/29/2025 X-ray. FINDINGS: Pulmonary Parenchyma: Mildly elevated right hemidiaphragm (No interval changes). No focal consolidation, pneumothorax, or significant lung opacities identified. No evidence of pleural effusion or pleural thickening. Mild vascular congestion (No interval changes). Heart and Mediastinum: Mildly increased cardiac shadow. (No interval changes). No mediastinal widening or masses. No hilar or mediastinal lymphadenopathy. Bony Thorax: Bony thorax appears intact without fractures or deformities. Lower cervical spine fixation device. Soft Tissues: Soft tissues overlying the chest wall are unremarkable. IMPRESSION: 1. Mild cardiomegaly with mild vascular congestion (No interval changes). 2. No focal consolidation. 3. Mildly elevated right hemidiaphragm (No interval changes). Electronically signed by Cayden Means 08-13-2025 02:04 AM Diagnostic Findings EKG as per my interpretation :Rate 55, sinus bradycardia, normal axis, T wave inversion inferior and anterolateral leads
[2025-08-13] MEDS ORDERED: ATROPINE SULFATE 0.1 MG/ML 10ML SYR IV PRN (03:42)
[2025-08-13] MEDS ORDERED: ACETAMINOPHEN 325 MG TAB PO PRN (03:58)
[2025-08-13] MEDS ORDERED: ARTIFICIAL TEARS OP PRN (04:39)
[2025-08-13 04:47] LABS: Reticulocytes # 0.070 10^6/uL (0.020-0.100)
[2025-08-13] MEDS ORDERED: CARBOHYDRATES FOR HYPOGLYCEMIA PO PRN (05:02)
[2025-08-13] MEDS ORDERED: GLUCAGON FOR INJ 1 MG VIAL SQ PRN (05:02)
[2025-08-13] MEDS ORDERED: GLUCOSE 10 TAB/TUBE PO PRN (05:02)
[2025-08-13] MEDS ORDERED: DEXTROSE 50% 50 ML SYRINGE IV PRN (05:02)
[2025-08-13] MEDS ORDERED: GLUCOSE 40% GEL 15 GM TUBE PO PRN (05:02)
[2025-08-13 05:03] LABS: Anion Gap 4.0 (3-11); Blood Urea Nitrogen 19.0 mg/dl (6-23); Calcium 8.7 mg/dl (8.6-10.3); Carbon Dioxide 27.0 mmol/L (21-32); Chloride 108.0 mmol/L (98-107); Creatinine Clr Calc Pharmacy 58.4 ml/min; Glucose 117.0 mg/dl (70-99(Fasting)); Iron 55.0 mcg/dl (35-175); Magnesium 2.1 mg/dl (1.7-2.4); Potassium 3.6 mmol/L (3.5-5.1); Sodium 139.0 mmol/L (136-145); Transferrin 301.0 mg/dl (200-360)
[2025-08-13] MEDS: INSULIN ASPART PER UNIT CHARGE SC SCH (05:07)
[2025-08-13 05:25] LABS: Ferritin 18.4 ng/ml (8-388); Partial Thromboplastin Time 33 Seconds (21-31)
[2025-08-13 05:29] LABS: Folate (Folic Acid),Ser orPlas 9.32 ng/ml (>5.38)
[2025-08-13 05:30] LABS: Vitamin B12 371.0 pg/ml (180-914)
[2025-08-13] MEDS: HEPARIN SOD 5,000 UNIT/0.5 ML VIAL SQ SCH (06:20)
[2025-08-13 08:16] VITALS: TEMP 97.3; O2SAT 97
[2025-08-13] MEDS ORDERED: NON-FORMULARY MEDICATION (Riboflavin (Vitamin B2) 100 mg Tablet) PO SCH (09:00)
[2025-08-13] MEDS ORDERED: ACETAMINOPHEN 325 MG TAB PO SCH ×2 (09:00→21:00)
[2025-08-13] MEDS ORDERED: LOSARTAN POTASSIUM 25 MG TAB PO SCH (09:00)
[2025-08-13] MEDS: DOXYCYCLINE HYCLATE 100 MG CAP PO SCH (09:37)
[2025-08-13] MEDS: ASPIRIN 81 MG ECTAB PO SCH (09:37)
[2025-08-13] MEDS: CHOLECALCIFEROL 10 MCG (400 UNITS) TAB PO SCH (09:37)
[2025-08-13] MEDS: DICLOFENAC SOD 1% GEL 100 GM TUBE EXT SCH (09:37)
[2025-08-13] MEDS: EZETIMIBE 10 MG TAB PO SCH (09:37)
[2025-08-13] MEDS: FLUTICASONE PROPIONATE NA SPR 16 GM BTL SCH (09:38)
[2025-08-13] MEDS: MONTELUKAST SODIUM 10 MG TABLET PO SCH (09:38)
[2025-08-13] MEDS: IPRATROPIUM BROMIDE NASAL SPRAY 0.03% 30 ML SCH (09:38)
[2025-08-13] MEDS: CEROVITE ADV FORMULA TAB PO SCH (09:38)
[2025-08-13] MEDS: FEXOFENADINE HCL 180 MG TAB PO SCH (09:38)
[2025-08-13] MEDS: PREGABALIN 100 MG CAP PO SCH (09:39)
[2025-08-13] MEDS: PSYLLIUM HUSK 4GM PACKET PO SCH (09:39)
[2025-08-13] MEDS: ACETAMINOPHEN 325 MG TAB PO ONE (09:49)
--- NOTE | 2025-08-13 11:45 | Cardiology Consultation ---
Date of Consultation August 13, 2025 Assessment & Plan (1) Apical variant hypertrophic cardiomyopathy: (2) Transient hypotension: (3) Hyperlipidemia: (4) SVT (supraventricular tachycardia): Plan Apical variant hypertrophic cardiomyopathy Transient hypotension - Diagnosed in [place] in Summer of 2024. - He was started on 10 mg of Lasix there, this has since been increased to 20 mg. Continue this. He was told to take an extra dose of his lasix the next 2 days given mild pulm congestion noted on CXR. - Continue carvedilol. Losartan was decreased from 100 mg to 50 mg while in [place]. Patient was instructed to take his BP and pulse prior to taking these medications and to hold for systolic <100 and pulse <55 given his heart rate runs from high 50s- low 60s. I believe his hypotension could have possibly been 2/2 to when he took his medications in correlation with his vital signs based on his stories. - Patient has an appointment with the cardiomyopathy clinic in [place] on September 05 - Patient should follow-up in our office at the end of next week SVT s/p ablation - no issues HLD - Nonocclusive CAD noted in 2023 - continue statin History of Present Illness Attending Physician: Destiny Stephens MD History of Present Illness Raymon is a 70 year old male with a past medical history of apical variant hypertrophic cardiomyopathy, mild pulm htn, DM2, BENEDICTO. Yesterday evening, he presented to the ER due to hypotension. Lowest recorded readings were 71/45 and 68/43. He had initially felt dizzy upon standing, after he sat down in his kitchen table he felt better but continued to have low readings. Over the summer, he was up in [place] and had to be hospitalized due to symptomatic hypotension. His HCTZ was discontinued at that time and his losartan was decreased from 100 mg to 50 mg. There have been no other episodes of symptomatic hypotension asides from these 2. When he was in [place], he was seen by Dr. Li from [facility] who diagnosed him with apical variant hypertrophic cardiomyopathy. His brother has been recently diagnosed with this as well. Records have been requested. In the ER, EKG reflected sinus bradycardia with rate of 54 with T wave inversions noted in the inferior leads. No evidence of hypotension recorded in medical record. Patient tells me he feels to be at his baseline. He denies any dizziness, vision changes, chest discomfort or shortness of breath. He denies any swelling to his lower extremities. He has followed with the MD in [place] for cardiology in the past. He has an a ppointment scheduled with [facility] cardiomyopathy clinic on Sep 05. Previous cardiac testing based on available records: SVT ablation 2007 Exercise stress 12/12/17: negative for ischemia Cardiac catheterization 03/11/19 performed at [facility] by Dr. Strickland: "normal coronaries" Echo 03/24/24: EF 60% Trace MR and TR Stress test 05/06/24: Inferior lateral ischemia noted Cardiac MRI May 2024: EF 53%, ??no evidence of hypertrophic cardiomyopathy or valvular heart disease Cardiac catheterization 07/14/2024: Performed at [facility] by Dr. Batista - rebecca atkinson htn, preserved cardiac outpt and index, mild nonocclusive CAD ( see cath report) Allergies Allergy/AdvReac Type Severity Reaction Status Date / Time nifedipine Allergy Mild Facial Verified 08/07/25 08:17 numbness cephalexin [From Keflex] Allergy Unknown Unknown Verified 08/07/25 08:17 dexamethasone Allergy Unknown Unknown Verified 08/07/25 08:17 topiramate Allergy Unknown "turned Verified 08/07/25 08:17 left foot outward" ciprofloxacin AdvReac Intermediate Worsened Verified 08/07/25 08:17 neuropathy, pain bromfenac AdvReac Unverified 08/07/25 08:17 NSAIDS (Non-Steroidal AdvReac Unverified 08/07/25 08:17 Anti-Inflamma Home Medications Medication Instructions Recorded Confirmed Type acetaminophen 325 mg tablet 650 mg PO BID 07/05/20 08/13/25 History (Tylenol) albuterol sulfate 90 mcg/actuation 1 inh inhalation Q6 PRN Shortness 07/05/20 08/13/25 History aerosol inhaler Of Breath aspirin 81 mg tablet,delayed 81 mg PO QAM 07/05/20 08/13/25 History release (Artur Low Dose Aspirin) fluticasone propionate 50 2 spray intranasal QAM 07/05/20 08/13/25 History mcg/actuation nasal spray,suspension riboflavin (vitamin B2) 100 mg 400 mg PO QAM 07/05/20 08/13/25 History tablet alpha lipoic acid 600 mg capsule 600 mg PO QPM 08/31/22 08/13/25 History lidocaine 5 % topical patch 1 patch topical DAILY PRN Pain 08/31/22 08/13/25 History white petrolatum-mineral oil 83 1 applic ophthalmic (eye) HS 08/31/22 08/13/25 History %-15 % eye ointment (Lubrifresh PM) azelastine 137 mcg (0.1 %) nasal 3 spray intranasal QPM 11/13/22 08/13/25 History spray capsaicin 0.075 % topical cream 1 applic topical HS Pain 05/18/23 08/13/25 History rizatriptan 10 mg tablet 10 mg PO DAILY PRN migraines 05/18/23 08/13/25 History tizanidine 4 mg capsule 4 mg PO HS Pain 05/18/23 08/13/25 History cholecalciferol (vitamin D3) 10 10 mcg PO QAM 05/14/24 08/13/25 History mcg (400 unit) capsule psyllium 1 tbsp PO QAM 05/14/24 08/13/25 History ciclopirox 8 % topical solution 1 applic topical QAM 06/26/25 08/13/25 History ezetimibe 10 mg tablet 5 mg PO QAM 06/26/25 08/13/25 History furosemide 20 mg tablet 20 mg PO QAM 06/26/25 08/13/25 History methyl salicylate 30 %-menthol 10 1 applic topical TID PRN Muscle 06/26/25 08/13/25 History % topical cream (Cold and Hot Pain (m.salicylate-menthol)) atorvastatin 40 mg tablet 40 mg PO HS 06/29/25 08/13/25 History fexofenadine 180 mg tablet 180 mg PO QAM allergies 06/29/25 08/13/25 History metoprolol succinate 25 mg 12.5 mg PO QAM 06/29/25 08/13/25 History tablet,extended release 24 hr doxycycline hyclate 100 mg capsule 100 mg PO DAILY 07/10/25 08/13/25 History fluorometholone acetate 0.1 % eye 1 drp ophthalmic (eye) QID 07/10/25 08/13/25 History drops,suspension diclofenac sodium 1 % topical gel 4 g topical QID 07/29/25 08/13/25 History empagliflozin 25 mg tablet 25 mg PO QAM 07/29/25 08/13/25 History (Jardiance) lanolin alcohols-mineral 1 applic topical QPM 07/29/25 08/13/25 History oil-w.petrolatum-ceresin topical cream (Eucerin topical cream) montelukast 10 mg tablet 10 mg PO QAM 07/29/25 08/13/25 History triamcinolone acetonide 0.5 % 1 applic topical DAILY 07/29/25 08/13/25 History topical cream pregabalin 50 mg capsule 100 mg PO QAM 08/07/25 08/13/25 History cyclosporine 0.05 % eye drops in a 1 drp ophthalmic (eye) Q12H 08/13/25 08/13/25 History dropperette (Restasis) fish oil-fat acid comb8-herb 2 cap PO AMPM 08/13/25 08/13/25 History [id number] 1,200 mg (400 [id number]) cap fluoride (sodium) 1.1 % dental gel 1 applic dental QPM 08/13/25 08/13/25 History (PreviDent) ipratropium bromide 21 mcg (0.03 2 spray intranasal QAM 08/13/25 08/13/25 History %) nasal spray losartan 100 mg tablet 50 mg PO QPM 08/13/25 08/13/25 History multivitamin with minerals 1 cap PO QAM 08/13/25 08/13/25 History omeprazole 20 mg capsule,delayed 20 mg PO HS 08/13/25 08/13/25 History release omeprazole 40 mg capsule,delayed 40 mg PO DAILYBB 08/13/25 08/13/25 History release pregabalin 50 mg capsule 150 mg PO QPM 08/13/25 08/13/25 History Patient History Medical History GERD (gastroesophageal reflux disease) History of COVID-19 (2022) "Resolved" History of skin cancer Removed from arm History of kidney cancer (2021) Cancerous nodule removed from kidney No chemo or radiation Asthma "Well controlled" No inhaler use x years Chronic cough Pre-diabetes Taking Jardiance for neuropathy per patient Hx of colonic polyp Chronic rhinitis Benign essential hypertension Atherogenic dyslipidemia LVH (left ventricular hypertrophy) due to hypertensive disease Follows with [facility] cardio MENDOZA (nonalcoholic steatohepatitis) Hx of migraines Neuropathy B/L feet Sciatica Receives quarterly injections Degenerative disc disease Cervical region, b/l hand/finger numbness History of solitary pulmonary nodule Under surveillance Sleep apnea CPAP (compliant) Hyperlipidemia Surgical History History of esophagogastroduodenoscopy (EGD) 09/2024, [facility] Hx of colonoscopy with polypectomy Hx of cardiac catheterization (07/14/24) No stents History of lumbar fusion (2021) L4-S1 Hx of neck surgery (2020) C3-7 fusion History of repair of rotator cuff S/P Botox injection R/t migraines History of eye surgery PRK B/L eyes History of tonsillectomy History of cardiac radiofrequency ablation 2007 (R/t SVT) Family History Grandmother (Maternal) Family history of diabetes mellitus Father Family history of diabetes mellitus Brother Family history of diabetes mellitus Social History Smoking Status: Never smoker Second Hand Exposure: No; Do You Dip or Chew Tobacco: No; Hx Alcohol Use: No Hx Substance Use: No Preferred Language: Khmer Communication Ability: Effective Cane Cutter Required: No Beliefs That Will Affect Care: None Current Living Situation: Spouse Current Living Situation Comment: [facility] Feels Safe at Home: Yes Assistive Devices: CPAP and Glasses Review of Systems Review of Systems: per HPI Physical Exam Physical Exam: Physical Exam: AOx3. Mood affect appear normal. All questions appropriately. HEENT: Sclerae are anicteric. Pupils are equal and reactive to light and accommodation. Extraocular movements were intact. Neuro: Cranial nerves intact Lungs: Lungs are clear to auscultation bilaterally. There are no rales wheezes or rhonchi. Normal respiratory effort without use of accessory muscles. Cardiac: The rhythm was regular. S1 and S2 were normal. There are no murmurs on examination. The PMI was not markedly displaced on palpation. Extremities: Patient has bilateral radial pulses that are equal in intensity. There is no evidence cyanosis or clubbing. There was no evidence of significant peripheral edema bilaterally. Skin: There are no rashes noted on examination today. Results & Data Vital Signs (Past 12 Hours) Vital Signs Temp Pulse Pulse Resp BP BP Pulse Ox 08/13/25 07:20 36.3 C L 52 L 16 146/85 H 97 08/13/25 06:33 51 L 08/13/25 06:12 08/13/25 05:11 36.4 C L 52 L 18 139/83 98 08/13/25 04:31 51 L 16 122/75 94 08/13/25 03:00 53 L 18 108/67 95 08/13/25 01:40 92 08/13/25 01:39 53 L 16 126/73 92 08/13/25 01:18 52 L 08/13/25 00:06 36.3 C L 53 L 16 101/60 94 O2 Del Method 08/13/25 07:20 Room Air 08/13/25 06:33 08/13/25 06:12 Room Air, CPAP 08/13/25 05:11 Room Air 08/13/25 04:31 Room Air 08/13/25 03:00 Room Air 08/13/25 01:40 Room Air 08/13/25 01:39 Room Air 08/13/25 01:18 08/13/25 00:06 Room Air PG Care Time/CCT Total # of Minutes Spent Total Time Spent with Patient: Total time spent is greater than 50% in coordination of care (as documented) at patient's floor/unit and/or counseling patient: Coding [place] [address] IN/OBS CONSULT LVL 3,45M Patient Type Established History Problem Focused Exam Problem Focused Diagnoses Apical variant hypertrophic cardiomyopathy I42.2 Transient hypotension I95.9 Pure hypercholesterolemia E78.00 Hyperlipidemia type: pure hypercholesterolemia SVT (supraventricular tachycardia) I47.10 (3) Hyperlipidemia Hyperlipidemia type: pure hypercholesterolemia Qualified Code(s): E78.00 - Pure hypercholesterolemia, unspecified
[2025-08-13 11:47] VITALS: BP 153/92; RESP 18
--- NOTE | 2025-08-13 13:08 | Communication Note ---
Date of Service: August 13, 2025 Patient was seen and examined at bedside. 70 yo M w/ PMH of apical hypertrophic cardiomyopathy, non-obstructive CAD, carotid artery disease, hypertension, hyperlipidemia, SVT s/p ablation, 2* AVB (Mobitz type I), bronchial asthma, BENEDICTO on CPAP, pulmonary nodules, left RCCA status post cryoablation, DM2 on oral medications, GERD, NAFLD, migraine, on going doxycycline course for eye infection, chronic rhinitis, osteoarthritis presents w/ abrupt onset dizziness and visual changes as he was trying to stand up which led to ER visit. He measured BP and it was in 70s/40s per him. Of note, patient was confined at the [facility] in [place], [place] from April 30 to 2024 for hypotension and bradycardia. He needed Levophed infusion. He had low a.m. cortisol although cosyntropin stimulation test was normal. Exercise tolerance test performed with appropriate heart rate response ruling out chronotropic incompetence as per note. Patient discharged with MCOT in place for remote monitoring of potential arrhythmias as per discharge note. Patient home losartan and HCTZ discontinued on discharge. Patient losartan restarted by [place] PCP at a lower dose on follow-up visit last April 2025. Low-dose Lasix added to regimen because of fluid retention. 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 Outpatient [facility] cardiomyopathy specialist referral contemplated next month. Transient hypotension: Recurrent hypotension Mild CHF, History of diastolic dysfunction Apical hypertrophic cardiomyopathy as per records Bradycardia Patient presents with low blood pressure, lightheadedness. See above. Presenting orthostatic vitals negative. ? Bradycardia contributory, history 2AVB Mobitz type I as per records Patient with no signs and symptoms of acute infection, labs looks fairly WNL. Lyme screen negative. TSH WNL. CXR with no signs of infection, positive for mild congestion. Home Lasix and losartan on hold due to low blood pressure at presentation. Home beta-yajaira on hold for now, atropine as needed for symptomatic bradycardia Cardiology on board, await recommendation. Now blood pressure improving, consider resuming home meds (losartan/lasix/metoprolol) gradually. f/u echo. cw tele monitoring. Strict I/Os, daily weights, CHF education, fluid restriction Likely demand ischemia: Troponin flat trend in 20s, likely secondary to mild CHF in the setting of kidney dysfunction at presentation. Likely chronic anemia: Patient hemoglobin has been around 13-16 per prior records, FOBT done in the ED was negative. Monitor H&H. Other chronic medical conditions: Continue with/resume home meds as and when able. hx non-obstructive CAD carotid artery disease as per records hyperlipidemia, on statin Rx hx SVT status post ablation bronchial asthma as per records, not in acute exacerbation BENEDICTO on CPAP left RCCA status post cryoablation DM2 on oral medications, reasonable control as of recent hemoglobin A1c of 7.9 last March 2025 DVT prophylaxis. Heparin subcu Full code Patient Ms. Pam Pitt, contact #[phone]. Text document was generated using [employer] voice recognition software. It may contain grammatical or spelling errors. Kindly contact undersigned for clarification of any documentation item in question. For detailed information on the patient, refer to today's H&P note.
--- NOTE | 2025-08-13 14:36 | Discharge Summary ---
Date of Service August 13, 2025 Admission HPI Per Admitting Provider History obtained from patient. Medical history significant for apical hypertrophic cardiomyopathy as per records, non-obstructive CAD, carotid artery disease as per records, hypertension, hyperlipidemia, hx SVT status post ablation, hx 2AVB (Mobitz type I), bronchial asthma as per records, BENEDICTO on CPAP, pulmonary nodules, left RCCA status post cryoablation, DM2 on oral medications, GERD, NAFLD, migraine, ongoing doxycycline course for eye infection, chronic rhinitis, osteoarthritis. Patient confined at the [facility] in [place], [place] from April 30 to 2024 for hypotension and bradycardia. Patient accompanying for her check up with lung transplant specialist in [place] at time of illness. Patient had abrupt onset dizziness and visual changes which led to ER visit. SBP 60 over 40s, patient bradycardic as per note. Diffuse T wave inversions on EKG. CT head within normal limits. CT PE study negative. Patient initially started on Levophed infusion. Bedside ultrasound without pericardial effusion or acute change in the cardiac function as per note. Low a.m. cortisol although cosyntropin stimulation test was normal. Exercise tolerance test performed with appropriate heart rate response ruling out chronotropic incompetence as per note. Carotid ultrasound showed less than 50% ICA stenosis bilaterally. Patient discharged with MCOT in place for remote monitoring of potential arrhythmias as per discharge note. Hypotension/dizziness attributed to blood pressure regimen. Patient home losartan and HCTZ discontinued on discharge. Patient losartan restarted by [place] PCP at a lower dose on follow-up visit last April 2025. Low-dose Lasix added to regimen because of fluid retention. 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 Outpatient [facility] cardiomyopathy specialist referral contemplated next month. Recent [facility] ER visit last month for chest pain. Patient discharged home after unremarkable workup. Patient was standing up tonight when he felt lightheaded. No chest pain. No unusual cough or SOB symptoms. Some fluid retention. Denies abdominal pain, black/bloody stools, hematuria. Not compliant with salt restriction as per . SBP 60 to 70s at home. Patient brought to ER for evaluation. 1 L fluid bolus administered at the ER. Medical Historyas above Surgical History : Orthopedic procedures, renal cyst cryoablation, back surgery, tonsillectomy Family History : Heart disease, brain tumor Personal/Social history : Non-smoker, occasional EtOH intake, retired [employer] service Admission Exam Per Admitting Provider GENERAL: slightly anxious, obese, no respiratory distress SKIN: Normal color, warm HEENT: [place] palpebral conjunctivae, no ptosis, moist buccal mucosa NECK : Supple, short neck, no tenderness CHEST : Decreased breath sounds, no tenderness HEART : Bradycardic, no obvious murmurs ABDOMEN: Some distention, nontender RECTAL : Intact sphincter, brown stool (FOBT negative) EXTREMITIES : Minimal LE swelling, no LE tenderness, no other gross deformities NEUROLOGIC : Coherent, no facial asymmetry, no other gross focality Principal Diagnosis Transient hypotension: Recurrent hypotension Mild CHF, History of diastolic dysfunction Apical hypertrophic cardiomyopathy as per records Bradycardia Discharge Exam GENERAL: obese, no respiratory distress SKIN: Normal color, warm HEENT: [place] palpebral conjunctivae, no ptosis, moist buccal mucosa NECK : Supple, short neck, no tenderness CHEST : CTA, no tenderness HEART : Bradycardic, no obvious murmurs ABDOMEN: Some distention, nontender EXTREMITIES : No LE swelling, no LE tenderness, no other gross deformities NEUROLOGIC : Coherent, no facial asymmetry, no other gross focality Discharge Data Allergies Allergy/AdvReac Type Severity Reaction Status Date / Time nifedipine Allergy Mild Facial Verified 08/07/25 08:17 numbness cephalexin [From Keflex] Allergy Unknown Unknown Verified 08/07/25 08:17 dexamethasone Allergy Unknown Unknown Verified 08/07/25 08:17 topiramate Allergy Unknown "turned Verified 08/07/25 08:17 left foot outward" ciprofloxacin AdvReac Intermediate Worsened Verified 08/07/25 08:17 neuropathy, pain bromfenac AdvReac Unverified 08/07/25 08:17 NSAIDS (Non-Steroidal AdvReac Unverified 08/07/25 08:17 Anti-Inflamma Consultations 08/13/25 02:16 ED Decision to Admit Stat 08/13/25 03:42 Consult Cardiology Routine 08/13/25 12:01 HIM [Consult Health Information Management] Routine Hospital Course (1) Transient hypotension: Plan 70 yo M w/ PMH of apical hypertrophic cardiomyopathy, non-obstructive CAD, carotid artery disease, hypertension, hyperlipidemia, SVT s/p ablation, 2* AVB ( Mobitz type I), bronchial asthma, BENEDICTO on CPAP, pulmonary nodules, left RCCA status post cryoablation, DM2 on oral medications, GERD, NAFLD, migraine, ongoing doxycycline course for eye infection, chronic rhinitis, osteoarthritis presents w/ abrupt onset dizziness and visual changes as he was trying to stand up which led to ER visit. He measured BP and it was in 70s/40s per him. Of note, patient was confined at the [facility] in [place], [place] from April 30 to 2024 for hypotension and bradycardia. He needed Levophed infusion. He had low a.m. cortisol although cosyntropin stimulation test was normal. Exercise tolerance test performed with appropriate heart rate response ruling out chronotropic incompetence as per note. Patient discharged with MCOT in place for remote monitoring of potential arrhythmias as per discharge note. Patient home losartan and HCTZ discontinued on discharge. Patient losartan restarted by [place] PCP at a lower dose on follow-up visit last April 2025. Low-dose Lasix added to regimen because of fluid retention. 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 Outpatient [facility] cardiomyopathy specialist referral contemplated next month. Transient hypotension: Recurrent hypotension Mild CHF, History of diastolic dysfunction Apical hypertrophic cardiomyopathy as per records Bradycardia Patient presents with low blood pressure, lightheadedness. See above. Presenting orthostatic vitals negative. ? Bradycardia contributory, history 2AVB Mobitz type I as per records Patient with no signs and symptoms of acute infection, labs looks fairly WNL. Lyme screen negative. TSH WNL. CXR with no signs of infection, positive for mild congestion. Home Lasix and losartan on hold due to low blood pressure at presentation. Cardiology evaluated, discussed with cardiology, okay to discharge patient to home with prior to arrival cardiac medications. Patient to follow-up with cardiology next week. Patient has been advised to measure blood pressure and pulse prior to taking his cardiac medications and to hold his medications for systolic blood pressure less than 100 mmHg and pulse rate less than 50 bpm. Likely demand ischemia: Troponin flat trend in 20s, likely secondary to mild CHF in the setting of kidney dysfunction at presentation. Likely chronic anemia: Patient hemoglobin has been around 13-16 per prior records, FOBT done in the ED was negative. Monitor H&H. Other chronic medical conditions: Continue with/resume home meds as and when able. hx non-obstructive CAD carotid artery disease as per records hyperlipidemia, on statin Rx hx SVT status post ablation bronchial asthma as per records, not in acute exacerbation BENEDICTO on CPAP left RCCA status post cryoablation DM2 on oral medications, reasonable control as of recent hemoglobin A1c of 7.9 last March 2025 DVT prophylaxis. Heparin subcu Full code Patient is hemodynamically stable and very impatient to be discharged to home as soon as possible. After discussion with cardiology, patient is being discharged with following instructions at the point of discharge: Follow-up with your primary care physician within a week time and likely you will need labs CBC/CMP/magnesium/phosphorus. Follow-up with cardiology in a week time of discharge. Per cardiology, you were instructed to take your blood pressure and pulse prior to taking your cardiac medications and to hold for systolic less than 100 mmHg and pulse less than 55 beats per minute. Maintain slow transition during change in position as discussed at bedside. Take your medications as prescribed. Please make sure that you are able to get your medications today by calling your pharmacy before you leave the hospital so that your treatment continuity is not broken. Home Health Attestation I certify that this patient is under my care and that I, or a physicians pest controller assistant working with me, had a face to-face encounter that meets the formerly [facility] [id number] encounter requirements with this patient. The encounter with the patient was in whole, or in part, for the following medical condition, which is the primary reason for home health care (list medical condition): I certify that, based on my findings, the following services are medically necessary home health services: My clinical findings support the need for the above services because: Further, I certify that my clinical findings support that this patient is homebound (i.e. absences from home require considerable and taxing effort and are for medical reasons or shinto services or infrequently or of short duration when for other reasons) because: Certification for Home Health Services: Based on the above findings, I certify that this patient is confined to the home and needs intermittent longterm care, physical therapy and/or speech therapy or continues to need occupational therapy. The patient is under my care, and I have initiated the establishment of the plan of care. This patient will be followed by a physician who will periodically review the plan of care. Total Time Total Time Spent Total Time Spent (In Minutes): 50 Discharge Plan Discharge Items Patient Disposition: Home - Self-Care Reason For Visit: TRANSIENT HYPOTENSION Discharge Diagnosis: Transient hypotension: Recurrent hypotension Mild CHF, History of diastolic dysfunction Apical hypertrophic cardiomyopathy as per records Bradycardia Activity: As commented below Activity Comment: Slow transition during change in position as discussed Non-emergency contact: Primary Care Provider Call non-emergency contact if: you have any medication questions Follow-up/Referrals: Star Chin MD [Primary Care Provider] - Diet: Heart Healthy and Low Sodium (2gm) Addtl Attending Provider Instructions: Follow-up with your primary care physician within a week time and likely you will need labs CBC/CMP/magnesium/phosphorus. Follow-up with cardiology in a week time of discharge. Per cardiology, you were instructed to take your blood pressure and pulse prior to taking your cardiac medications and to hold for systolic less than 100 mmHg and pulse less than 55 beats per minute. Maintain slow transition during change in position as discussed at bedside. Take your medications as prescribed. Please make sure that you are able to get your medications today by calling your pharmacy before you leave the hospital so that your treatment continuity is not broken. Pending Studies at Discharge: No Stand-Alone Forms: My [facility] [employer], Smoking Cessation Medications and DC Order Prescriptions: Continued capsaicin 0.075 % cream 1 applic topical HS Rx Instructions: do not wash area for at least 30 min after application tizanidine 4 mg capsule 4 mg PO HS rizatriptan 10 mg tablet 10 mg PO DAILY PRN (Reason: migraines) Rx Instructions: take 1 tab at onset of headache; if no relief may repeat 1 tab after at least 2 hrs; max = 3 tabs/24 hr PO alpha lipoic acid 600 mg capsule 600 mg PO QPM lidocaine 5 % adhesive patch,medicated 1 patch topical DAILY PRN (Reason: Pain) Rx Instructions: leave on most painful area for up to 12 hrs Lubrifresh PM 83-15 % ointment 1 applic ophthalmic (eye) HS cholecalciferol (vitamin D3) 10 mcg (400 unit) capsule 10 mcg PO QAM psyllium Powder 1 tbsp PO QAM Rx Instructions: mix into at least 8 oz of water or juice before administering Jardiance 25 mg tablet 25 mg PO QAM Eucerin Cream 1 applic topical QPM triamcinolone acetonide 0.5 % cream 1 applic topical DAILY montelukast 10 mg tablet 10 mg PO QAM diclofenac sodium 1 % gel 4 g topical QID Rx Instructions: apply to single knee, ankle, foot; for foot includes sole/toes/top of foot ciclopirox 8 % solution 1 applic topical QAM Rx Instructions: sunday evening clean toenails with rubbing alcohol ezetimibe 10 mg tablet 5 mg PO QAM furosemide 20 mg tablet 20 mg PO QAM Cold and Hot (m.salic-menthol) 30-10 % cream 1 applic topical TID PRN (Reason: Muscle Pain) pregabalin 50 mg capsule 100 mg PO QAM doxycycline hyclate 100 mg capsule 100 mg PO DAILY Rx Instructions: after 7 days of 200 mg, 100 mg until fluorometholone acetate 0.1 % drops,suspension 1 drp ophthalmic (eye) QID Rx Instructions: 4x a day for 1 week,then 3x a day for 1 week,then2x a day for 1 week,then 1x a day until 18 august appointment acetaminophen [Tylenol] 325 mg Tablet 650 mg PO BID aspirin [Artur Low Dose Aspirin] 81 mg Tablet,Delayed Release (Dr/Ec) 81 mg PO QAM riboflavin (vitamin B2) 100 mg Tablet 400 mg PO QAM albuterol sulfate 90 mcg/actuation Hfa Aerosol Inhaler 1 inh INHALATION Q6 PRN (Reason: Shortness Of Breath) fluticasone propionate 50 mcg/actuation [place],Suspension 2 spray INTRANASAL QAM azelastine 137 mcg (0.1 %) Aerosol,[place] 3 spray INTRANASAL QPM Rx Instructions: administer into each nostril atorvastatin 40 mg Tablet 40 mg PO HS fexofenadine 180 mg Tablet 180 mg PO QAM metoprolol succinate 25 mg Tablet Extended Release 24 Hr 12.5 mg PO QAM pregabalin 50 mg Capsule 150 mg PO QPM losartan 100 mg Tablet 50 mg PO QPM omeprazole 20 mg Capsule,Delayed Release(Dr/Ec) 20 mg PO HS omeprazole 40 mg capsule,delayed release(DR/EC) 40 mg PO DAILYBB ipratropium bromide 21 mcg (0.03 %) spray,non-aerosol 2 spray intranasal QAM Rx Instructions: administer into each nostril fluoride (sodium) [PreviDent] 1.1 % Gel 1 applic DENTAL QPM multivitamin with minerals Capsule 1 cap PO QAM fish oil-fat acid [id number] 1,200 mg (400 [id number]) Capsule 2 cap PO AMPM cyclosporine [Restasis] 0.05 % Dropperette 1 drp OPHTHALMIC (EYE) Q12H Discharge Orders: Discharge Order (Routine); Ordered 08/13/25 Ordered By: Destiny Stephens Admission Data Admit Date/Time: 08/13/25 03:05 Attending Provider: Destiny Stephens Admit Provider: Dragan Beasley Primary Care Provider: Star Chin Other Providers: Dragan Beasley; Cody Batista
[2025-08-13 14:38] VITALS: PULSE 63
--- NOTE | 2025-08-13 16:36 | XCELERA ---
[id number]
[2025-08-13] MEDS ORDERED: ATORVASTATIN 40 MG TAB PO SCH (21:00)
[2025-08-13] MEDS ORDERED: ARTIFICIAL TEARS OP OINT 3.5 GM TUBE OP SCH (21:00)
[2025-08-13] MEDS ORDERED: EUCERIN CR 120 GM JAR TOP SCH (21:00)
[2025-08-13] MEDS ORDERED: AZELASTINE HCL 0.1% NASAL 200 SPRAYS/27,400 MCG BTL SCH (21:00)
[2025-08-13] MEDS ORDERED: PREGABALIN 150 MG CAP PO SCH (21:00)
--- NOTE | 2025-08-15 06:35 | Electrocardiogram Report ---
Test Reason : Blood Pressure : */* mmHG Vent. Rate : 54 BPM Atrial Rate : 54 BPM P-R Int : 184 ms QRS Dur : 88 ms QT Int : 452 ms P-R-T Axes : 23 42 209 degrees QTcB Int : 428 ms Sinus bradycardia with Premature atrial complexes Marked ST abnormality, possible lateral subendocardial injury Abnormal ECG When compared with ECG of 29-Jun-2025 05:18, Premature atrial complexes are now Present Criteria for Inferior infarct are no longer Present T wave inversion now evident in Inferior leads Confirmed by Surya Meredith ([id number]) on 08/15/2025 6:35:18 AM Referred By: REFERRED SELF Confirmed By: Surya Meredith
== END 2025-08-13 15:29 | disposition home or self-care (01) ==
LOC: 2S 00:04 → ED 00:04 → 2S 04:32